=== PATIENT | male | born 1960 | race Caucasian/White ===

== ENCOUNTER 2020-08-19 08:27 | Outpatient (REF) | payer OTHER, SELFPAY ==
[2020-08-24 20:32] LABS: Acetylcholine Recep Modulating 13
[2020-08-25 01:56] LABS: Acetylcholine Receptor Binding <0.30 nmol/L
[2020-08-25 20:37] LABS: Acetylcholine Recept. Blocking <15 (<15)
== END 2020-08-19 08:28 | disposition home or self-care (01) ==
LOC: HO.LAB 08:27
PROVIDERS: PCP Internal Medicine; Visit Provider Psychiatry & Neurology Neurology
DX: G70.00 Myasthenia gravis without (acute) exacerbation (principal)
CPT/HCPCS: 36415; 83519

== ENCOUNTER 2020-09-15 15:06 | Outpatient (REF) | payer OTHER, SELFPAY ==
--- NOTE | 2020-09-15 15:11 | XR_ITS ---
EXAMINATION: XR CHEST CLINICAL INFORMATION: Non-small cell lung cancer COMPARISON: Previous chest x-rays most recent March [address] April 2020 TECHNIQUE: 2 views of the chest were obtained. FINDINGS: There are stable postsurgical changes from right pneumonectomy. The left lung is clear. There is no left pleural effusion. There is a loop recorder seen in the left anterior chest wall. Bony structures are unremarkable. XR/XR chest 2V IMPRESSION: Stable postsurgical changes from right pneumonectomy.
== END 2020-09-15 15:07 | disposition home or self-care (01) ==
LOC: HO.XRAY 15:06
PROVIDERS: PCP Internal Medicine; Visit Provider Internal Medicine Medical Oncology
DX: C34.91 Malignant neoplasm of unspecified part of right bronchus or lung (principal)
CPT/HCPCS: 71046

== ENCOUNTER 2020-12-10 14:29 | Emergency (ER) | payer OTHER, SELFPAY ==
--- NOTE | ~2020-12-10 | XR_ITS ---
EXAMINATION: XR FINGER, LEFT CLINICAL INFORMATION: Trauma to middle finger with saw COMPARISON: Previous x-ray May 2007 of the left hand TECHNIQUE: Three views of the left third finger. FINDINGS: There is a comminuted displaced fracture of the distal tuft of the third finger. There is evidence of trauma to the overlying soft tissues suggestive of a compound fracture. No radiopaque soft tissue foreign body is seen. XR/XR finger LT min 2V IMPRESSION: Comminuted compound fracture of the distal tuft of the third finger.
--- NOTE | 2020-12-10 14:35 | ED_ITS ---
HPI - Wound/Laceration General Chief Complaint: Wound/Laceration Stated Complaint: finger lacerations - table saw Time Seen by Provider: 12/10/20 14:34 Source: patient Mode of arrival: ambulatory Limitations: no limitations History of Present Illness HPI narrative: 60 y/o male presenting to the ED with lacerations to his left middle and index fingers sustained while working with a table saw today. He reports accidentally slipping with the saw and getting the tip of both fingers. The middle finger wound is worse than the index finger. He states the middle finger is still oozing. He is not on blood thinners. He reports pain is 2/10 and he denies numbness, tingling. He has full ROM of all fingers. Onset (ago): hour(s) (2) Extremity Location: left: hand (3rd and 4th digits ) Place: home Patient tetanus UTD: No Context: accidental Associated symptoms: pain Treatments prior to arrival: bandage Related Data Previous Rx's Medication Instructions Recorded cephalexin 500 mg PO Q6H 7 Days #28 cap 12/10/20 Allergies Allergy/AdvReac Type Severity Reaction Status Date / Time hazelnut Allergy Anaphylaxis Verified 12/10/20 14:37 Review of Systems Review of Systems: Constitutional: No Fever, No Chills Gastrointestinal: No Nausea, No Vomiting Musculoskeletal: + joint pain, No Myalgias Skin: + Skin Lesions, No rash Neuro: No Weakness, No Numbness Psych: No Anxiety/Panic, No Depression Heme/Lymph: No Bruising PMFSH Past Medical History Attestation statement: The following information was validated with the patient. Medical History Graves disease Heart disease Lung cancer Ocular myasthenia Surgical History (Updated 12/10/20 @ 14:43 by Ciarra Villeda) History of lung surgery Social History Social History Smoked in Last 30 Days: No Use of substances other than those prescribed or required for medical reasons: Yes Substance Use Type: Marijuana Substance Use Frequency: Occasionally Advance Directives: No Advance Directives Information Provided: Yes Physical Exam Vital Signs: Vital Signs: Last Vital Signs Temp 97.8 F 12/10/20 14:37 Pulse 94 12/10/20 14:37 Resp 16 12/10/20 14:37 BP 140/81 H 12/10/20 14:37 Pulse Ox 97 03/05/21 14:37 Body Mass Index 20.5 Appearance: Alert. Oriented X3. No acute distress. HEENT: normal inspection CVS: Normal heart rate and rhythm. Pulses normal. Respiratory: No respiratory distress. Skin: Skin warm and dry. Normal skin color. Normal skin turgor. No rashes. Extremities: left 3rd digit with deep irregular laceration to distal finger tip including nail. full flexion and extension intact. NV intact. 2nt digit with superficial laceration to distal tip without nail involvement. Neuro: Oriented X 3. No motor deficit. No sensory deficit. Course Course Course Narrative: 60 y/o male presenting with finger trauma to 3rd and 4th digit s on the left hand after accidental injury with table saw. Tdap ordered. XR ordered to assess for fracture. Will irrigate extensively and loosely repair. He has tendon function fully intact. Reevaluation(s) Reevaluation #1: XR showing comminuted compound fx of the distal tuft of the 3rd finger. Placed in splint. Will refer to Hand specialist. Patient has been counseled and he is stable for d/c with ppx keflex to prevent infection. See lac note for details of repair. Procedures Laceration Laceration 1: Site: hand Side (If applicable): left Size (cm): 3 Description: flap, irregular and contaminated Depth: involves muscle layer Local Anesthetic: lidocaine 2% Amount of anesthesia used (mL): 7 Pre-repair: wound explored, irrigated extensively and deep structures intact Skin layer closed with: nylon Size (cm): 4-0 Number of sutures: 6 Technique: simple, interrupted Laceration 2: Site: hand Side (If applicable): left Size (cm): 0.5 Description: linear Depth: simple, single layer Pre-repair: wound explored and irrigated extensively Size (cm): other (steri strips) Nerve Block Nerve Block 1: Time out performed: Yes Local Anesthetic: lidocaine 2% Amount of anesthesia used (mL): 7 Side: left Nerve Blocks: digital Procedure Successful: Yes Patient Tolerated Procedure: well Complications: none Discharge Plan Discharge Clinical Impression: Laceration Fracture, finger, distal phalanx Qualifiers: Encounter type: initial encounter Finger: middle finger Fracture type: open Fracture alignment: nondisplaced Laterality: left Qualified Code(s): S62.663B - Nondisplaced fracture of distal phalanx of left middle finger, initial encounter for open fracture Patient Disposition: Home, Self-Care Instructions: Finger Fracture (ED), Finger Laceration (ED) Additional Instructions: X-ray showed a fracture of the finger tip. Wear the splint to allow fracture to heal. Limit use of the left hand/middle finger to allow healing. Do not get wounds wet for 24 hours. After 24 hours you may wash briefly with soap and water and then pat dry. Apply bacitracin or triple antibiotic ointment two times per day. Recommend Tylenol and Motrin as needed for pain. Elevate when possible and use ice to help with swelling. Follow up with your doctor or come back to the ER in 24 days for suture removal. Take the prescribed antibiotic to prevent infection. Follow up with the Hand Surgeon next week. Prescriptions: New cephalexin 500 mg capsule 500 mg PO Q6H 7 Days Qty: 28 RF: 0 Referrals: Andree Priest MD [Physician] - 3 days (complex lac, comminuted fx)
[2020-12-10 14:37] VITALS: BP 140/81; PULSE 94; RESP 16; TEMP 36.6; O2SAT 97; BMI 20.5
[2020-12-10] MEDS: Lidocaine HCl 2 % MPF 5 ML VIAL INFILTRATI ×2 (14:52)
== END 2020-12-10 16:01 | disposition home or self-care (01) ==
LOC: HO.ED 14:51
PROVIDERS: Emergency Provider Emergency Medicine; PCP Internal Medicine
DX: S62.663B Nondisplaced fracture of distal phalanx of left middle finger, initial encounter for open fracture (principal); W31.2XXA Contact with powered woodworking and forming machines, initial encounter; Y93.9 Activity, unspecified; Y92.019 Unspecified place in single-family (private) house as the place of occurrence of the external cause; Y99.9 Unspecified external cause status
CPT/HCPCS: 12042; 64450; 73140; 90471; 90715; 99283; 99284

== ENCOUNTER → 2020-12-22 09:21 | Outpatient (BNVA) | payer OTHER, SELFPAY | PROVIDERS: PCP Internal Medicine; Visit Provider Orthopaedic Surgery | DX: S69.92XA Unspecified injury of left wrist, hand and finger(s), initial encounter (principal); S62.633B Displaced fracture of distal phalanx of left middle finger, initial encounter for open fracture | CPT/HCPCS: 99202 ==

== ENCOUNTER → 2020-12-30 10:22 | Outpatient (BNVA) | payer OTHER, SELFPAY | PROVIDERS: PCP Internal Medicine; Visit Provider Physician Assistant | DX: S62.633D Displaced fracture of distal phalanx of left middle finger, subsequent encounter for fracture with routine healing (principal); S69.92XD Unspecified injury of left wrist, hand and finger(s), subsequent encounter | CPT/HCPCS: 99212 ==

== ENCOUNTER → 2021-01-06 09:16 | Outpatient (BNVA) | payer OTHER, SELFPAY | PROVIDERS: PCP Internal Medicine; Visit Provider Physician Assistant | DX: S69.92XD Unspecified injury of left wrist, hand and finger(s), subsequent encounter (principal) | CPT/HCPCS: 99212 ==

== ENCOUNTER → 2021-01-10 10:48 | Outpatient (BNVA) | payer OTHER, SELFPAY | PROVIDERS: PCP Internal Medicine; Visit Provider Orthopaedic Surgery | DX: S62.633D Displaced fracture of distal phalanx of left middle finger, subsequent encounter for fracture with routine healing (principal) | CPT/HCPCS: 99212 ==

== ENCOUNTER 2021-02-07 08:51 | Outpatient (REF) | payer OTHER, SELFPAY | END 2021-02-07 08:52 | disposition home or self-care (01) | LOC: HO.HOSX 08:51 | PROVIDERS: PCP Internal Medicine; Visit Provider Orthopaedic Surgery | DX: S69.92XA Unspecified injury of left wrist, hand and finger(s), initial encounter (principal); S62.633B Displaced fracture of distal phalanx of left middle finger, initial encounter for open fracture | CPT/HCPCS: 99212 ==

== ENCOUNTER 2021-03-03 07:26 | Outpatient (REF) | payer OTHER, SELFPAY ==
[2021-03-03 08:49] LABS: Anion Gap 12 (12-20); Blood Urea Nitrogen 14 mg/dL (9-16); Carbon Dioxide 28 mmol/L (22-29); Chloride 103 mmol/L (96-108); Estimated Glomerular Filt Rate > 60; Glucose Fasting 92 mg/dL (60-99); Sodium 139 mmol/L (135-145)
== END 2021-03-03 07:27 | disposition home or self-care (01) ==
LOC: HO.LAB 07:26
PROVIDERS: PCP Internal Medicine; Visit Provider Psychiatry & Neurology Neurology
DX: G70.00 Myasthenia gravis without (acute) exacerbation (principal)
CPT/HCPCS: 36415; 80048

== ENCOUNTER 2021-05-04 07:19 | Outpatient (REF) | payer OTHER, SELFPAY ==
--- NOTE | ~2021-05-04 | CT_ITS ---
EXAMINATION: CT CHEST WITHOUT CONTRAST CLINICAL INFORMATION: Malignant neoplasm of the right main bronchus. COMPARISON: 04/21/2020 and 02/05/2019 TECHNIQUE: Multidetector volumetric CT imaging of the chest was done. Axial MIP volume rendering provided. Sagittal and coronal reformatted images were obtained. This CT examination was performed using dose optimization techniques as appropriate, variously including the following: *Automated exposure control *Adjustment of mA and/or kV according to patient size (this includes techniques or standardized protocols for targeted exams where dose is matched to indication/reason for exam; i.e. extremities or head) *Use of iterative reconstruction technique DLP: 134.9 mGy-cm FINDINGS: LUNGS: Patient is status post right pneumonectomy with mediastinal shift to the right. There are mild changes of centrilobular and paraseptal emphysema present. No confluent parenchymal disease is noted. No bronchial wall thickening or bronchiectasis is seen. Within the left lower lobe there is a noncalcified somewhat irregularly marginated 8 mm density on image 301 of 779 which appears similar in size but denser than on prior examinations. There appears to be an adjacent bronchus with some surrounding haziness measuring 7 x 4 mm in size which I do not definitely see on prior studies. This is seen on image 280 of 779. MEDIASTINUM: No definite thyroid abnormalities appreciated. Heart normal size. Mild coronary artery calcification present. Mild calcification of the aortic valve is seen. No pericardial effusion. No definite lymphadenopathy is seen. No thoracic aortic aneurysm. PLEURA: Status post right pneumonectomy with fluid in the post pneumonectomy space. Within the fluid there is again noted to be regions of soft tissue density which may represent invagination of pleura and had been seen on previous studies. AXILLA: No lymphadenopathy appreciated. Left anterior chest wall cardiac recorder noted. UPPER ABDOMEN: Hepatic cysts are present. No definite focal solid mass or intrahepatic bile duct dilatation is noted. OSSEOUS STRUCTURES: No suspicious destructive bony lesions identified. CT/CT chest wo con IMPRESSION: 1. Status post right pneumonectomy with postsurgical change. 2. Right lower lobe regions of density, one of which appears to be stable and one of which I cannot definitely see on prior studies. This measures approximately 7 x 4 mm in size. Recommend short-term follow-up chest CT.
== END 2021-05-04 07:20 | disposition home or self-care (01) ==
LOC: HO.CT 07:19
PROVIDERS: PCP Internal Medicine; Visit Provider Surgery
DX: C34.01 Malignant neoplasm of right main bronchus (principal)
CPT/HCPCS: 71250

== ENCOUNTER → 2021-05-20 08:54 | Outpatient (BNVA) | payer OTHER, SELFPAY | PROVIDERS: PCP Internal Medicine; Visit Provider Surgery | DX: C34.91 Malignant neoplasm of unspecified part of right bronchus or lung (principal); F12.90 Cannabis use, unspecified, uncomplicated; Z79.899 Other long term (current) drug therapy | CPT/HCPCS: 99212 ==

== ENCOUNTER 2021-08-15 08:09 | Outpatient (REF) | payer OTHER, SELFPAY ==
--- NOTE | ~2021-08-15 | CT_ITS ---
EXAMINATION: CT CHEST WITHOUT CONTRAST CLINICAL INFORMATION: History of right lung cancer. COMPARISON: Previous chest CT scans, most recent April 2021. TECHNIQUE: Multidetector volumetric CT imaging of the chest was done. Axial MIP volume rendering provided. Sagittal and coronal reformatted images were obtained. This CT examination was performed using dose optimization techniques as appropriate, variously including the following: *Automated exposure control *Adjustment of mA and/or kV according to patient size (this includes techniques or standardized protocols for targeted exams where dose is matched to indication/reason for exam; i.e. extremities or head) *Use of iterative reconstruction technique DLP: 160 mGy-cm. FINDINGS: LUNGS: There are postsurgical changes from right pneumonectomy. There is evidence of emphysema. There is focal mild bronchiectasis and bronchial wall thickening seen in the superior segment of the left lower lobe. Just inferior to this area is an increasing slightly spiculated 8 mm left lower lobe nodule, axial image 302 series 7. This is gradually increasing in size and density measuring approximately 3 x 4 mm on most recent exam April 2021 and new from older exam from 2019. MEDIASTINUM: There is mild coronary artery calcification. The mediastinum is otherwise normal. PLEURA: There is stable appearance to the right pleural effusion. Again, this appears thick-walled with high attenuation areas and some calcification. This is unchanged from recent exam but complexity is gradually increasing compared to older prior exams. There is some infiltration of the extrapleural fat. This appears stable as well. There is no left pleural effusion or pleural thickening. AXILLA: No lymphadenopathy. UPPER ABDOMEN: There are small low-attenuation liver lesions probably representing cysts that are stable. The largest measures 1.3 x 1.7 cm in the central right lobe. There may be diverticulosis of the colon. OSSEOUS STRUCTURES: Unremarkable. CT/CT chest wo con IMPRESSION: Increasing spiculated 8 mm left upper lobe nodule. This is adjacent to an area of focal bronchiectasis and bronchial wall thickening. Appearance is suspicious for possible neoplasm. Stable appearance to the complex chronic right pleural effusion post right pneumonectomy. There are round high attenuation areas, some calcification and infiltration of the extrapleural fat. Stable liver cysts.
== END 2021-08-15 08:10 | disposition home or self-care (01) ==
LOC: HO.CT 08:09
PROVIDERS: PCP Internal Medicine; Visit Provider Surgery
DX: C34.91 Malignant neoplasm of unspecified part of right bronchus or lung (principal)
CPT/HCPCS: 71250

== ENCOUNTER 2021-08-19 08:50 | Outpatient (REF) | payer OTHER, SELFPAY ==
[2021-08-27 01:42] LABS: Voltage-Gated Ca Ab Type P/Q <30 pmol/L (<30)
[2021-09-09 17:35] LABS: Voltage-Gated Ca Chan Ab TypeN <54 pmol/L (<54)
== END 2021-08-19 08:51 | disposition home or self-care (01) ==
LOC: HO.LAB 08:50
PROVIDERS: Absent Provider Psychiatry & Neurology Neurology; PCP Internal Medicine; Visit Provider Surgery
DX: G70.00 Myasthenia gravis without (acute) exacerbation (principal); C34.91 Malignant neoplasm of unspecified part of right bronchus or lung; R91.1 Solitary pulmonary nodule
CPT/HCPCS: 36415; 83519

== ENCOUNTER 2021-08-26 08:51 | Outpatient (REF) | payer OTHER, SELFPAY ==
--- NOTE | 2021-08-26 16:51 | PFT_ITS ---
FLOWS: FEV1 44% of predicted at 1.73 L. FVC 69% of predicted at 3.56 L. FEV1 to FVC ratio of 0.49. No bronchodilator response except in small to medium airways. LUNG VOLUMES: Total lung capacity 77% of predicted at 5.72 L. Residual volume 100% of predicted at 2.36 L. Slow vital capacity 66% of predicted at 3.36 L. Expiratory reserve volume 105% of predicted at 1.62 L. Diffusion capacity is moderately decreased. IMPRESSION: Severe obstructive ventilatory defect combined with mild restrictive ventilatory defect with no bronchodilator response except in small to medium airways. Decreased diffusion capacity suggests emphysema. MD ELIZABET Choi/MODL / [id number]
== END 2021-08-26 08:52 | disposition home or self-care (01) ==
LOC: HO.RESP 08:51
PROVIDERS: PCP Internal Medicine; Visit Provider Surgery
DX: C34.91 Malignant neoplasm of unspecified part of right bronchus or lung (principal); R91.1 Solitary pulmonary nodule
CPT/HCPCS: 94060; 94727; 94729

== ENCOUNTER 2021-08-30 14:43 | Outpatient (REF) | payer OTHER, SELFPAY ==
--- NOTE | ~2021-08-30 | PE_ITS ---
EXAMINATION: Fluorine-18 FDG PET/CT Scan CLINICAL INDICATION: Initial treatment management. Pulmonary nodule. PROCEDURE: 58 minutes following the intravenous administration of 13.6 mCi of fluorine 18 FDG, images from the base of the skull to the mid thighs were obtained using a combined PET/CT scanner with CT scan based attenuation correction. No oral contrast was administered. No intravenous contrast was administered. Transverse, coronal, sagittal, and volume reconstruction projections were obtained. The patient's blood glucose as determined by a finger stick, was 103 mg/dl immediately prior to injection. Total CT exam dose-length product 265.71 mGy-cm * These CT images were obtained using dose optimization techniques as appropriate, variously including the following: Automated exposure control * Adjustment of mA and/or kV according to patient size (this includes techniques or standardized protocols for targeted exams where dose is matched to indication/reason for exam; i.e. extremities or head) * Use of iterative reconstruction technique COMPARISON: No previous PET/CT scan is available for comparison. CT scan of the chest dated 08/15/2021 is available for comparison. FINDINGS: (Slice numbers described in this report are numbered superiorly to inferiorly with slice #1 in the head) NECK AND VISUALIZED HEAD: There is an intense focus of increased FDG activity present in the right side of the mandible, and SUVmax 10.7, slice 36/267. On the CT images there are subtle lucencies in this region of the mandible. No other foci of abnormal FDG activity are noted. The distribution of FDG activity is physiological. There is no cervical lymphadenopathy. THORAX: Postsurgical changes from a right pneumonectomy are noted. In the superior segment of the left lower lobe there is a weakly FDG avid pulmonary nodule, SUVmax 1.9, slice 94/267. On the CT images this measures 0.7 x 0.6 cm in largest transverse dimensions, and approximately 0.7 cm cephalocaudad. It does not appear significantly changed from the recent 08/15/[address] scan. No additional pulmonary nodules are visualized. There is a stable right pleural effusion with weakly increased FDG activity present in the pleura without a focal component. No left-sided pleural fluid is present. There is no pericardial fluid or pneumothorax. There is no mediastinal, supraclavicular or axillary lymphadenopathy. ABDOMEN AND PELVIS: There are no foci of abnormal FDG activity present in the abdomen or pelvis. There are several stable appearing hypodense cysts in the right lobe of the liver the largest measuring 1.8 x 1.3 cm in largest transverse dimensions versus photopenic on the FDG PET images, consistent with a simple cyst. Several other small subcentimeter cysts are present in both lobes of the liver, unchanged from 08/15/2021 and these are all likely too small to be characterized on the FDG PET images. The liver is otherwise unremarkable. The gallbladder, spleen, kidneys, and adrenal glands are unremarkable. The pancreas is unremarkable. There is no retroperitoneal, mesenteric, pelvic or inguinal lymphadenopathy. There is mild FDG activity present throughout the gastrointestinal tract without a suspicious focal component. There is diverticulosis without evidence of diverticulitis. The hollow viscera are otherwise unremarkable. The prostate is enlarged measuring 5.3 cm in largest transverse dimensions. The pelvic organs are otherwise unremarkable. MUSCULOSKELETAL: There are no foci of abnormal FDG activity present in the osseous structures. There are degenerative changes in the spine most prominently in the mid lumbar spine. No suspicious sclerotic or lytic lesions are present. VASCULAR: Scattered vascular calcifications including coronary are present. PET/PET CT fusion skull to thigh IMPRESSION: 1. There is weak FDG activity in a subcentimeter left lower lobe pulmonary nodule, as described above. Because of the small size of this nodule, this intensity of FDG activity as well as the spiculated appearance on the CT images are strongly suspicious for malignancy. 2. No additional abnormalities suspicious for metastatic or other malignant lesions are noted. 3. Intense FDG activity and some subtle lucencies in the right molar aspect of the mandible are present, and the findings are strongly suspicious for a dental abscess at this site. Dental evaluation is recommended. 4. Postsurgical changes from a right pneumonectomy and a stable right pleural effusion are noted. 5. Vascular calcifications including coronary.
== END 2021-08-30 14:44 | disposition home or self-care (01) ==
LOC: HO.PET 14:43
PROVIDERS: PCP Internal Medicine; Visit Provider Surgery
DX: Z13.89 Encounter for screening for other disorder (principal)

== ENCOUNTER → 2021-09-09 08:54 | Outpatient (BNVA) | payer OTHER, SELFPAY | PROVIDERS: PCP Internal Medicine; Visit Provider Surgery | DX: R91.1 Solitary pulmonary nodule (principal); K04.7 Periapical abscess without sinus; F12.90 Cannabis use, unspecified, uncomplicated; Z79.899 Other long term (current) drug therapy; Z85.118 Personal history of other malignant neoplasm of bronchus and lung; Z90.2 Acquired absence of lung [part of] | CPT/HCPCS: 99212 ==

== ENCOUNTER 2021-09-15 09:59 | Outpatient (REF) | payer OTHER, SELFPAY ==
[2021-09-15 11:21] LABS: Influenza A PCR NEGATIVE (Negative); Influenza B PCR NEGATIVE (Negative); Resp Syncy Virus RNA Qual PCR NEGATIVE (Negative); SARS COV2 PCR INHOUSE NEGATIVE (Negative)
== END 2021-09-15 10:00 | disposition home or self-care (01) ==
LOC: HO.LNP 09:59
PROVIDERS: Visit Provider Internal Medicine
DX: Z20.822 Contact with and (suspected) exposure to COVID-19 (principal)
CPT/HCPCS: 0241U

== ENCOUNTER 2021-09-21 14:43 | Outpatient (REF) | payer OTHER, SELFPAY ==
--- NOTE | ~2021-09-21 | XR_ITS ---
EXAMINATION: XR CHEST CLINICAL INFORMATION: Non-small cell lung cancer of the right lung. COPD. COMPARISON: Previous chest x-ray most recent September [address] most recent August 2021 TECHNIQUE: 2 views of the chest were obtained. FINDINGS: The cardiac and mediastinal contours are stable. There are postsurgical changes following right pneumonectomy. The left lung is clear. The small pulmonary nodule in the left lower lobe is not appreciated by chest x-ray. There is no pleural effusion or pneumothorax. There is a loop recorder in the left anterior chest. Bony structures are unremarkable. XR/XR chest 2V IMPRESSION: Stable post right pneumonectomy changes. No evidence for acute disease in the chest.
[2021-09-21 14:56] LABS: MANUAL DIFF FLAG NO
[2021-09-21 15:49] LABS: Basophils Percent Auto 0.4 % (0-2); Eosinophils Percent Auto 0.2 % (0-4); Hematocrit 45.8 % (42.0-52.0); Hemoglobin 15.1 g/dl (14.0-18.0); Imm Gran Abs Auto 0.03 X10*3/uL (0.00-0.03); Imm Gran Pct Auto 0.3 % (0.0-0.4); Lymphocytes Absolute Auto 1.3 X10*3/uL (1.2-4.9); Lymphocytes Percent Auto 12.6 % (20-40); Mean Platelet Volume 9.3 fL (9.4-12.4); Monocytes Absolute Auto 0.5 X10*3/uL (0.1-1.2); Monocytes Percent Auto 5.3 % (2-11); Neutrophils Absolute Auto 8.3 x10*3/uL (2.0-8.3); Neutrophils Percent Auto 81.2 % (45-73); Platelet Count 307 X10*3/uL (160-400); Red Blood Count 4.72 X10*6/uL (4.60-5.80); Red Cell Distribution Width 13.4 % (11.0-16.0); White Blood Count 10.2 X10*3/uL (4.8-10.8)
[2021-09-21 16:05] LABS: Alanine Aminotransferase 15 U/L (0-40); Albumin Level 4.4 g/dL (3.5-5.0); Alkaline Phosphatase 66 U/L (39-117); Anion Gap 12 (12-20); Aspartate Amino Transferase 21 U/L (5-37); Bilirubin Total 0.8 mg/dL (0.0-1.0); Blood Urea Nitrogen 12 mg/dL (9-16); Calcium 9.8 mg/dL (8.4-10.2); Carbon Dioxide 29 mmol/L (22-29); Chloride 102 mmol/L (96-108); Estimated Glomerular Filt Rate > 60; Glucose Random 107 mg/dL (60-115); Potassium 4.3 mmol/L (3.3-5.1); Sodium 139 mmol/L (135-145); Total Protein 7.1 g/dL (6.5-8.0)
[2021-09-21 16:28] LABS: Free T4 (Free Thyroxine) 1.15 ng/dL (0.71-1.85); Prostate Specific Antigen 3.63 ng/mL (<0.05-4.0); Thyroid Stimulating Hormone 2.95 uIU/mL (0.32-4.0)
== END 2021-09-21 14:44 | disposition home or self-care (01) ==
LOC: HO.XRAY 14:43
PROVIDERS: Absent Provider Internal Medicine; PCP Internal Medicine; Visit Provider Internal Medicine Medical Oncology
DX: E03.9 Hypothyroidism, unspecified (principal); N40.0 Benign prostatic hyperplasia without lower urinary tract symptoms; R05.9 Cough, unspecified; G70.00 Myasthenia gravis without (acute) exacerbation; C34.91 Malignant neoplasm of unspecified part of right bronchus or lung; J44.9 Chronic obstructive pulmonary disease, unspecified
CPT/HCPCS: 36415; 71046; 80053; 84153; 84439; 84443; 85025

== ENCOUNTER 2021-09-23 07:15 | Day surgery (SDC) | payer OTHER, SELFPAY ==
[2021-09-23] VITALS (8 sets, daily range): BP systolic 79–104; BP diastolic 43–65; PULSE 67–82; RESP 16–18; TEMP 36.1–36.6; O2SAT 96–99; BMI 19.8
--- NOTE | ~2021-09-23 | CT_ITS ---
PROCEDURE: CT GUIDED BIOPSY, LUNG CLINICAL INFORMATION: Left lung nodule. COMPARISON: Previous chest CT scans, most recent August 2021 TECHNIQUE: Procedure and risks and benefits including bleeding, infection and pneumothorax were discussed with the patient, and informed consent was obtained. The patient was positioned in the left decubitus/slight HAITIAN position. Limited axial images through the chest were performed. The left posterior lateral chest was prepped and draped in the usual sterile fashion. The skin and soft tissues were anesthetized with 1% lidocaine plain. Using a 22-gauge needle, access to the left lower lobe nodule was obtained. Two separate 22-gauge FNA specimens were obtained. Postprocedure imaging demonstrated no pneumothorax. Conscious sedation was provided by registered nurse under my direct supervision. The patient received Versed 1.5 mg and fentanyl 75 mcg intravenously during the procedure. Total sedation time was [address] examination was performed using dose optimization techniques as appropriate, variously including the following: *Automated exposure control *Adjustment of mA and/or kV according to patient size (this includes techniques or standardized protocols for targeted exams where dose is matched to indication/reason for exam; i.e. extremities or head) *Use of iterative reconstruction technique DLP: 1168 mGy-cm FINDINGS: There is an 8 mm left lower lobe nodule that was targeted for fine-needle aspiration. Postprocedure images demonstrate no pneumothorax. CT/CT biopsy lung LT IMPRESSION: CT-guided left lower lobe nodule fine-needle aspiration.
--- NOTE | ~2021-09-23 | XR_ITS ---
EXAMINATION: XR CHEST CLINICAL INFORMATION: Post left lung biopsy COMPARISON: Previous chest x-ray most recent 09/21/2021 TECHNIQUE: Frontal view of the chest was obtained. FINDINGS: The cardiac and mediastinal are stable. There are are postsurgical changes from right pneumonectomy. The left lung is clear. The left lower lobe pulmonary nodule is not well-visualized by chest x-ray. There is no pneumothorax. There is no left pleural effusion. There is a loop recorder that projects over the left chest wall. Bony structures are unremarkable. XR/XR chest 1V IMPRESSION: No pneumothorax post left lung biopsy.
[2021-09-23 08:06] LABS: Basophils Absolute Auto 0.1 X10*3/uL (0.0-0.2); Basophils Percent Auto 0.5 % (0-2); Eosinophils Absolute Auto 0.1 X10*3/uL (0.0-0.4); Eosinophils Percent Auto 0.7 % (0-4); Hematocrit 42.4 % (42.0-52.0); Hemoglobin 14.2 g/dl (14.0-18.0); Imm Gran Abs Auto 0.08 X10*3/uL (0.00-0.03); Imm Gran Pct Auto 0.7 % (0.0-0.4); Lymphocytes Absolute Auto 0.8 X10*3/uL (1.2-4.9); Lymphocytes Percent Auto 7.2 % (20-40); MANUAL DIFF FLAG NO; Mean Corpuscular HGB Conc 33.5 g/dl (31.0-36.0); Mean Corpuscular Volume 95.5 fL (80.0-98.0); Mean Platelet Volume 8.8 fL (9.4-12.4); Monocytes Absolute Auto 0.6 X10*3/uL (0.1-1.2); Monocytes Percent Auto 5.3 % (2-11); Neutrophils Absolute Auto 9.8 x10*3/uL (2.0-8.3); Neutrophils Percent Auto 85.6 % (45-73); Platelet Count 234 X10*3/uL (160-400); Red Blood Count 4.44 X10*6/uL (4.60-5.80); Red Cell Distribution Width 13.4 % (11.0-16.0); White Blood Count 11.4 X10*3/uL (4.8-10.8)
[2021-09-23 08:16] LABS: Prothrombin Time 11.6 SEC (9.9-13.0)
--- NOTE | 2021-09-23 11:10 | HO.RADPN ---
RADIOLOGY Narrative Narrative: Left lower lobe fna. Two 22 g fna specimens obtained. No complication.
== END 2021-09-23 13:21 | disposition home or self-care (01) ==
PROVIDERS: Radiology Diagnostic Radiology; PCP Internal Medicine; Visit Provider Radiology Diagnostic Radiology
DX: R91.1 Solitary pulmonary nodule (principal)
CPT/HCPCS: 10009; 10010; 32408; 36415; 71045; 85025; 85610; 85730; 88173; 88305; 88341; 88342; 99152; 99153; J2250; J3010

== ENCOUNTER 2021-12-30 07:55 | Outpatient (REF) | payer OTHER, SELFPAY ==
--- NOTE | ~2021-12-30 | XR_ITS ---
EXAMINATION: XR CHEST CLINICAL INFORMATION: Non-small cell lung cancer COMPARISON: Previous chest x-rays most recent September 2021 TECHNIQUE: 2 views of the chest were obtained. FINDINGS: There are stable postsurgical changes following right pneumonectomy. The cardiac and mediastinal contours are stable. The left lung is well inflated. The left lung is clear. There is no left pleural effusion. There is a loop recorder in the left anterior chest wall. Bony structures are unremarkable. XR/XR chest 2V IMPRESSION: Stable post right pneumonectomy changes.
== END 2021-12-30 07:56 | disposition home or self-care (01) ==
LOC: HO.XRAY 07:55
PROVIDERS: PCP Internal Medicine; Visit Provider Internal Medicine Medical Oncology
DX: C34.91 Malignant neoplasm of unspecified part of right bronchus or lung (principal)
CPT/HCPCS: 71046

== ENCOUNTER 2022-08-01 17:29 | Outpatient (REF) | payer OTHER, SELFPAY ==
--- NOTE | ~2022-08-01 | XR_ITS ---
EXAMINATION: XR CHEST CLINICAL INFORMATION: Cough. Shortness of breath. Rule out infiltrate. COMPARISON: Previous chest x-ray most recent December 2021 TECHNIQUE: 2 views of the chest were obtained. FINDINGS: There are postsurgical changes from right pneumonectomy. The cardiac and mediastinal contours are stable. The left lung is clear. There is no left pleural effusion or pneumothorax. Bony structures are unremarkable. Left chest wall loop recorder no longer seen. XR/XR chest 2V IMPRESSION: Post right pneumonectomy. No evidence for acute disease in the chest.
== END 2022-08-01 17:30 | disposition home or self-care (01) ==
LOC: HO.XRAY 17:29
PROVIDERS: PCP Internal Medicine; Visit Provider Internal Medicine
DX: R06.02 Shortness of breath (principal); R05.9 Cough, unspecified
CPT/HCPCS: 71046

== ENCOUNTER 2022-08-02 09:16 | Outpatient (REF) | payer OTHER, SELFPAY ==
[2022-08-02 10:07] LABS: Basophils Absolute Auto 0.1 X10*3/uL (0.0-0.2); Basophils Percent Auto 0.4 % (0-2); Eosinophils Percent Auto 0.2 % (0-4); Hematocrit 45.1 % (42.0-52.0); Hemoglobin 14.9 g/dl (14.0-18.0); Imm Gran Abs Auto 0.07 X10*3/uL (0.00-0.03); Imm Gran Pct Auto 0.5 % (0.0-0.4); Lymphocytes Absolute Auto 1.2 X10*3/uL (1.2-4.9); Lymphocytes Percent Auto 8.3 % (20-40); MANUAL DIFF FLAG SCAN; Mean Corpuscular Hemoglobin 30.7 pg (27.0-33.0); Mean Platelet Volume 8.8 fL (9.4-12.4); Monocytes Absolute Auto 1.8 X10*3/uL (0.1-1.2); Monocytes Percent Auto 12.9 % (2-11); Neutrophils Absolute Auto 10.7 x10*3/uL (2.0-8.3); Neutrophils Percent Auto 77.7 % (45-73); Platelet Count 280 X10*3/uL (160-400); Red Blood Count 4.85 X10*6/uL (4.60-5.80); Red Cell Distribution Width 13.6 % (11.0-16.0); SCAN SMEAR FLAG 1; White Blood Count 13.8 X10*3/uL (4.8-10.8)
[2022-08-02 10:14] LABS: D Dimer High Sensitivity 509 NG/ML
[2022-08-02 10:29] LABS: SLIDE REVIEW VERIFIED
[2022-08-02 10:49] LABS: Alanine Aminotransferase 9 U/L (0-40); Albumin Level 4.2 g/dL (3.5-5.0); Alkaline Phosphatase 69 U/L (39-117); Anion Gap 18 (12-20); Aspartate Amino Transferase 14 U/L (5-37); Bilirubin Total 1.2 mg/dL (0.0-1.0); Blood Urea Nitrogen 14 mg/dL (9-16); Calcium 9.4 mg/dL (8.4-10.2); Carbon Dioxide 26 mmol/L (22-29); Chloride 101 mmol/L (96-108); Estimated Glomerular Filt Rate > 60; Glucose Random 115 mg/dL (60-115); Potassium 4.8 mmol/L (3.3-5.1); Sodium 140 mmol/L (135-145); Total Protein 7.2 g/dL (6.5-8.0)
== END 2022-08-02 09:17 | disposition home or self-care (01) ==
LOC: HO.LAB 09:16
PROVIDERS: PCP Internal Medicine; Visit Provider Internal Medicine
DX: R06.02 Shortness of breath (principal); R05.9 Cough, unspecified
CPT/HCPCS: 36415; 80053; 85025; 85379

== ENCOUNTER 2022-12-12 09:52 | Outpatient (REF) | payer OTHER, SELFPAY ==
[2022-12-12 12:32] LABS: Free T4 (Free Thyroxine) 1.17 ng/dL (0.71-1.85); Thyroid Stimulating Hormone 2.01 uIU/mL (0.32-4.0)
[2022-12-13 20:14] LABS: Triiodothyronine T3 Free 3.2 pg/mL (2.3-4.2)
== END 2022-12-12 09:53 | disposition home or self-care (01) ==
LOC: HO.HMGCLDS 09:52
PROVIDERS: PCP Internal Medicine; Visit Provider Internal Medicine Endocrinology, Diabetes & Metabolism
DX: E05.90 Thyrotoxicosis, unspecified without thyrotoxic crisis or storm (principal)
CPT/HCPCS: 36415; 84439; 84443; 84481

== ENCOUNTER 2023-04-30 10:39 | Outpatient (REF) | payer OTHER, SELFPAY ==
--- NOTE | ~2023-04-30 | XR_ITS ---
EXAMINATION: XR CHEST CLINICAL INFORMATION: Non-small cell cancer of right lung COMPARISON: None available. TECHNIQUE: 2 views of the chest were obtained. FINDINGS: There are postsurgical changes from right pneumonectomy. There is shift of mediastinum to the right midline. This obscures the right heart borders. The left lung is clear. There is no left pleural effusion or pneumothorax. No acute osseous abnormality. XR/XR chest 2V IMPRESSION: No significant interval change. Post right pneumonectomy. No evidence of acute disease in the left chest.
== END 2023-04-30 10:40 | disposition home or self-care (01) ==
LOC: HO.HMGCX 10:39
PROVIDERS: PCP Internal Medicine; Visit Provider Internal Medicine Medical Oncology
DX: C34.91 Malignant neoplasm of unspecified part of right bronchus or lung (principal)
CPT/HCPCS: 71046

== ENCOUNTER 2023-06-26 08:52 | Outpatient (REF) | payer OTHER, SELFPAY ==
[2023-06-26 11:35] LABS: MANUAL DIFF FLAG NO
[2023-06-26 11:44] LABS: Basophils Absolute Auto 0.1 X10*3/uL (0.0-0.2); Basophils Percent Auto 0.9 % (0-2); Eosinophils Absolute Auto 0.1 X10*3/uL (0.0-0.4); Eosinophils Percent Auto 1.1 % (0-4); Hemoglobin 15.5 g/dl (14.0-18.0); Imm Gran Abs Auto 0.03 X10*3/uL (0.00-0.03); Imm Gran Pct Auto 0.3 % (0.0-0.4); Lymphocytes Absolute Auto 1.2 X10*3/uL (1.2-4.9); Lymphocytes Percent Auto 13.2 % (20-40); Mean Platelet Volume 9.2 fL (9.4-12.4); Monocytes Absolute Auto 0.8 X10*3/uL (0.1-1.2); Monocytes Percent Auto 8.5 % (2-11); Neutrophils Absolute Auto 6.8 x10*3/uL (2.0-8.3); Platelet Count 294 X10*3/uL (160-400); Red Cell Distribution Width 13.9 % (11.0-16.0); White Blood Count 8.9 X10*3/uL (4.8-10.8)
[2023-06-26 12:28] LABS: Alanine Aminotransferase 11 U/L (0-40); Aspartate Amino Transferase 14 U/L (5-37)
[2023-06-26 12:46] LABS: Free T4 (Free Thyroxine) 1.15 ng/dL (0.71-1.85)
[2023-06-27 08:09] LABS: Triiodothyronine T3 Free 3.3 pg/mL (2.3-4.2)
== END 2023-06-26 08:53 | disposition home or self-care (01) ==
LOC: HO.HMGCLDS 08:52
PROVIDERS: PCP Internal Medicine; Visit Provider Internal Medicine Endocrinology, Diabetes & Metabolism
DX: E05.90 Thyrotoxicosis, unspecified without thyrotoxic crisis or storm (principal)
CPT/HCPCS: 36415; 84439; 84443; 84450; 84460; 84481; 85025

== ENCOUNTER 2023-09-05 08:00 | Outpatient (REF) | payer MEDICAID, SELFPAY ==
--- NOTE | ~2023-09-05 | XR_ITS ---
EXAMINATION: XR CHEST CLINICAL INFORMATION: Non-small cell cancer of the right lung. COMPARISON: Prior chest radiographs, most recently 04/30/2023. TECHNIQUE: 2 frontal and lateral views of the chest were obtained. FINDINGS: There are stable postoperative changes consistent with a prior right pneumonectomy. There is stable rightward mediastinal shift. The cardiac contours largely obscured. There is compensatory hyperinflation of the left lung, without infiltrate, effusion or pneumothorax. No mass or nodule seen. There is no left hilar lymphadenopathy. No acute osseous abnormality is seen. XR/XR chest 2V IMPRESSION: There are stable postoperative changes consistent with a right pneumonectomy. No acute findings noted. No mass, nodule or left hilar lymphadenopathy is seen.
[2023-09-05 11:16] LABS: MANUAL DIFF FLAG NO
[2023-09-05 11:42] LABS: Basophils Absolute Auto 0.1 X10*3/uL (0.0-0.2); Basophils Percent Auto 0.8 % (0-2); Eosinophils Absolute Auto 0.1 X10*3/uL (0.0-0.4); Eosinophils Percent Auto 1.6 % (0-4); Hematocrit 46.2 % (42.0-52.0); Hemoglobin 15.3 g/dl (14.0-18.0); Imm Gran Abs Auto 0.02 X10*3/uL (0.00-0.03); Imm Gran Pct Auto 0.3 % (0.0-0.4); Lymphocytes Absolute Auto 1.1 X10*3/uL (1.2-4.9); Lymphocytes Percent Auto 14.7 % (20-40); Mean Corpuscular HGB Conc 33.1 g/dl (31.0-36.0); Mean Corpuscular Hemoglobin 31.9 pg (27.0-33.0); Mean Corpuscular Volume 96.5 fL (80.0-98.0); Mean Platelet Volume 9.3 fL (9.4-12.4); Monocytes Absolute Auto 0.6 X10*3/uL (0.1-1.2); Monocytes Percent Auto 8.2 % (2-11); Neutrophils Absolute Auto 5.8 x10*3/uL (2.0-8.3); Neutrophils Percent Auto 74.4 % (45-73); Platelet Count 294 X10*3/uL (160-400); Red Blood Count 4.79 X10*6/uL (4.60-5.80); Red Cell Distribution Width 13.9 % (11.0-16.0); White Blood Count 7.7 X10*3/uL (4.8-10.8)
[2023-09-05 11:47] LABS: Appearance Urine Clear; Color Urine Yellow; Glucose Urine UA Negative (Negative); Leukocyte Esterase Urine Negative (Negative); Nitrite Urine Negative (Negative); PH 6.5 (5.0-9.0); Specific Gravity - Urine 1.025 (1.005-1.025); Urine Blood Negative (Negative); Urine Ketones Negative (Negative); Urine Protein Negative (Neg-Trace)
[2023-09-05 11:59] LABS: Alanine Aminotransferase 11 U/L (0-40); Alkaline Phosphatase 65 U/L (39-117); Anion Gap 11 (12-20); Aspartate Amino Transferase 17 U/L (5-37); Bilirubin Total 0.6 mg/dL (0.0-1.0); Blood Urea Nitrogen 14 mg/dL (9-16); Calcium 9.2 mg/dL (8.4-10.2); Carbon Dioxide 28 mmol/L (22-29); Chloride 105 mmol/L (96-108); Cholesterol 195 mg/dL (<200); Estimated Glomerular Filt Rate > 60; Glucose Fasting 102 mg/dL (60-99); HDL Cholesterol 62 mg/dL (>40); LDL Cholesterol Calculated 116 mg/dL (<100); Sodium 140 mmol/L (135-145); Total Protein 7.2 g/dL (6.5-8.0); Triglycerides 88 mg/dL (<150)
[2023-09-05 12:17] LABS: Free T4 (Free Thyroxine) 1.13 ng/dL (0.71-1.85); Thyroid Stimulating Hormone 3.63 uIU/mL (0.32-4.0)
== END 2023-09-05 08:01 | disposition home or self-care (01) ==
LOC: HO.HMGCLDS 08:00
PROVIDERS: Absent Provider Internal Medicine Medical Oncology; PCP Internal Medicine; Visit Provider Internal Medicine
DX: C34.91 Malignant neoplasm of unspecified part of right bronchus or lung (principal); I42.9 Cardiomyopathy, unspecified; J44.9 Chronic obstructive pulmonary disease, unspecified; E07.9 Disorder of thyroid, unspecified; N40.0 Benign prostatic hyperplasia without lower urinary tract symptoms
CPT/HCPCS: 36415; 71046; 80053; 80061; 81003; 84439; 84443; 85025

== ENCOUNTER 2024-01-18 16:35 | Outpatient (REF) | payer MEDICAID, SELFPAY ==
[2024-01-18 16:45] LABS: MANUAL DIFF FLAG NO
[2024-01-18 17:05] LABS: Basophils Absolute Auto 0.1 X10*3/uL (0.0-0.2); Basophils Percent Auto 0.9 % (0-2); Eosinophils Absolute Auto 0.1 X10*3/uL (0.0-0.4); Eosinophils Percent Auto 1.5 % (0-4); Hematocrit 43.9 % (42.0-52.0); Hemoglobin 14.5 g/dl (14.0-18.0); Imm Gran Abs Auto 0.04 X10*3/uL (0.00-0.03); Imm Gran Pct Auto 0.5 % (0.0-0.4); Lymphocytes Absolute Auto 1.9 X10*3/uL (1.2-4.9); Lymphocytes Percent Auto 23.8 % (20-40); Mean Platelet Volume 8.9 fL (9.4-12.4); Monocytes Absolute Auto 0.7 X10*3/uL (0.1-1.2); Monocytes Percent Auto 8.9 % (2-11); Neutrophils Absolute Auto 5.2 x10*3/uL (2.0-8.3); Neutrophils Percent Auto 64.4 % (45-73); Platelet Count 259 X10*3/uL (160-400); Red Blood Count 4.67 X10*6/uL (4.60-5.80); Red Cell Distribution Width 14.1 % (11.0-16.0)
[2024-01-18 17:41] LABS: Alanine Aminotransferase 12 U/L (0-40); Alkaline Phosphatase 64 U/L (39-117); Anion Gap 10 (12-20); Aspartate Amino Transferase 15 U/L (5-37); Bilirubin Total 0.4 mg/dL (0.0-1.0); Blood Urea Nitrogen 16 mg/dL (9-16); C Reactive Protein 0.36 mg/dL (< or = 0.50); Calcium 9.3 mg/dL (8.4-10.2); Carbon Dioxide 31 mmol/L (22-29); Chloride 105 mmol/L (96-108); Estimated Glomerular Filt Rate > 60; Glucose Random 77 mg/dL (60-115); Potassium 4.1 mmol/L (3.3-5.1); Sodium 142 mmol/L (135-145); Total Protein 7.2 g/dL (6.5-8.0)
[2024-01-18 18:01] LABS: Erythrocyte Sedimentation Rate 3 MM/HR (0-15)
== END 2024-01-18 16:36 | disposition home or self-care (01) ==
LOC: HO.LAB 16:35
PROVIDERS: PCP Internal Medicine; Visit Provider Internal Medicine
DX: J44.9 Chronic obstructive pulmonary disease, unspecified (principal); I48.0 Paroxysmal atrial fibrillation; D72.829 Elevated white blood cell count, unspecified
CPT/HCPCS: 36415; 80053; 82550; 85025; 85652; 86140

== ENCOUNTER 2024-07-31 09:04 | Outpatient (REF) | payer MEDICAID, SELFPAY ==
[2024-07-31 11:29] LABS: Free T4 (Free Thyroxine) 1.23 ng/dL (0.71-1.85); Thyroid Stimulating Hormone 2.93 uIU/mL (0.32-4.0)
== END 2024-07-31 09:05 | disposition home or self-care (01) ==
LOC: HO.HMGCLDS 09:04
PROVIDERS: PCP Internal Medicine; Visit Provider Internal Medicine Endocrinology, Diabetes & Metabolism
DX: E05.90 Thyrotoxicosis, unspecified without thyrotoxic crisis or storm (principal)
CPT/HCPCS: 36415; 84439; 84443; 84481

== ENCOUNTER 2024-09-02 08:54 | Outpatient (REF) | payer MEDICAID, SELFPAY ==
--- NOTE | ~2024-09-02 | XR_ITS ---
EXAMINATION: XR CHEST CLINICAL INFORMATION: C34.91 NON SMALL CARCINOMA OF RIGHT LUNG. EMPHYSEMA. COMPARISON: 09/05/2023, 04/30/2023, and dating back to 09/13/2021. TECHNIQUE: 2 views of the chest were obtained. FINDINGS: There is been a total right pneumonectomy, with opacity throughout the right hemithorax. There is mediastinal shift to the right. The left lung is hyperaerated but clear. No consolidation or effusion. No suspicious nodules. Mediastinal structures are largely obscured due to the right. Aortic contour is normal. No soft tissue or osseous abnormality seen. XR/XR chest 4 views IMPRESSION: 1. No acute findings. No significant change. 2. Right pneumonectomy with compensatory hyperaeration of the left lung with likely underlying COPD. 3. Mediastinal shift into the right thorax. Electronically signed by: Ba Fraser MD 09/10/2024 08:38 AM [facility]
== END 2024-09-02 08:55 | disposition home or self-care (01) ==
LOC: HO.HMGCX 08:54
PROVIDERS: PCP Internal Medicine; Visit Provider Internal Medicine Medical Oncology
DX: J43.9 Emphysema, unspecified (principal); C34.91 Malignant neoplasm of unspecified part of right bronchus or lung
CPT/HCPCS: 71048

== ENCOUNTER → 2024-09-02 09:00 | Outpatient (BNV) | payer MEDICAID, SELFPAY | PROVIDERS: PCP Internal Medicine; Visit Provider Radiology Diagnostic Radiology | DX: C34.91 Malignant neoplasm of unspecified part of right bronchus or lung (principal) | CPT/HCPCS: 74018 ==

== ENCOUNTER 2024-12-18 08:11 | Outpatient (REF) | payer MEDICAID, SELFPAY ==
--- OUTSIDE RECORDS SUMMARY | 2024-12-18 08:33 | XMS_ITS ---
Author Organization Kodak Gunn III, MD Address [address] [place] [address] Care Team Providers Care Kitchen Assistant Name Role Phone Braden Bang MD Primary Care Provider Kodak Torres [phone] REASON FOR VISIT Medical record request Social History Sex Assigned At : Social History Observation Description Sex Assigned At Male Encounters Encounter Location Date Provider Diagnosis Kodak Gunn III, MD [address] [place] [address] [place] [address] 10/02/2023 Kodak Gunn Plan Of Treatment Next Appt Details Provider Name:Kodak Gunn, 09/10/2025 09:00:00 AM, [address] [place] [address] [place], [address], Progress Notes * RITU CHAIDEZ DDOB:1959 (63 yo M)Acc No.[id number]:10/02/2023 Patient:?RITU CHAIDEZ :1960???Age:63 Y???Sex:Male Address:[place] [address], [address] * true * Date:? Generated for Printi ng/Faxing/eTransmitting on:?12/18/2024 08:32 AM EDT
--- OUTSIDE RECORDS SUMMARY | 2024-12-18 08:33 | XMS_ITS ---
Author Organization Kodak Gunn III, MD Address [address] [place] [address] Care Team Providers Care Electronic Prepress Technician Name Role Phone Braden Bang MD Primary Care Provider Kodak Torres Unavailable [phone] Allergies Allergen (clinical drug ingredient) Drug/Non Drug [...] Orally ever y other day Active pyRIDostigmine [place] 60 MG 1 tablet Or ally every [...] Date Provider Diagnosis Kodak Gunn III, MD [address] [place] [address] [place] [address] 09/10/2024 Kodak Gunn Emphysema lung J43.9 ; [...] tablet Orally ever y other day pyRIDostigmine [place] 60 MG 1 tablet Orally every 4 [...] check-up Provider Name:Kodak Gunn, 09/10/2025 09:00:00 AM, [address] [place] [address] DR, [facility] [address], [place], [address], Progress Notes * FRANSISCO CHAIDEZ DDOB:1959 (64 yo M)Acc No.[id number]:09/10/2024 Progress Notes Patient:?FRANSISCO CHAIDEZ Provider:?Kodak Gunn MD :1960???Age:64 Y???Sex:Male Yayo e:09/10/2024 Address:[address], [facility], [id number] Pcp:Braden Bang MD Subjective: * Chief Complaints: * ???Pneumonectomy right lunng adenocarcinoma 2017Adenocarcinoma excised left upper lobe OPDEmphysemaHyperthyroidismBenign prostatic hypertrophyMyasthenia gravis * HPI: ???COVID-19 Screening:?Questions?Have you experienced fever, chills, cough, sore throat, shortness of breath, difficulty breathing, muscle aches, loss of taste or smell??No ?Have you been exposed to the virus within the last 10 days??No ?Have you travelled internationally in the last 10 days??No ?Have you been exposed to COVID-19 in the past??No ???:?The patient, Fransisco, is a 64-year-old male who had a [...] is unchanged from the previous one. * ROS:?General/Constitutional:?pain?only normal aches and pains.?Chills?denies.?Fatigue?admits.?Fever?denies.?ENT:?Decreased hearing?mild.?Respiratory:?Cough?non-productive.?Cardiovascular:?Chest pain with exertion?denies.?Dyspnea on exertion?denies.?Shortness of breath?with exertion.?Gastrointestinal:?Constipation?occasional.?Decreased appetite?denies.?Diarrhea?denies.?Heartburn?denies.?Nausea?denies.?Rectal bleeding?denies.?Vomiting?denies.?Hematology:?bruising?denies.?petechiae?denies.?Swollen glands?none have been noted.?Genitourinary:?Frequent urination?once a night.?Musculoskeletal:?Muscle aches?denies.?Painful joints?denies.?Sciatica?denies.?Weakness?denies.?Skin:?Itching?denies.?Rash?denies.?Skin lesion(s)?denies.?Neurologic:?Difficulty speaking?denies.?Dizziness?denies.?Headache?denies.?Low back pain?denies.?Psychiatric:?Depressed mood?denies.? * Medical History:? * Surgical History:?Surgery le ft hand fingers due to a saw accident 2006CME, bronchoscopy 2016right pneumonectomy for non-small cell lung cancer January 2017needle biopsy 09/2021Total right pneumonectomy * Hospitalization/Major Diagno stic Procedure:?Not mentioned * Family History:?Father: dece ased 50 yrs, Tumor parotid gland, brain tumor.?Mother: alive 74 yrs, No illnesses.?2 son(s) - healthy. .? His sons are 23 and 27 and both are healthy and well. He has no grandchildren brothers or sisters. His grandfather has a history of lung disease. Not mentioned. * Social History:?Tobacco Use:?Tobacco Use/Smoking?Patient is a?former smoker ???Drugs/Alcohol:?Drugs?Have you used drugs other than those for medical reasons in the past 12 months? No.?Alcohol Screen?How often did you have a drink containing alcohol in the past year??2 to 4 times a month (2 points) ?How many drinks did you have on a typical day when you were drinking in the past year??1 or 2 drinks (0 point) ?How often did you have 6 or more drinks on one occasion in the past year??Never (0 point) ???He is with 2 sons age 23 and 27 who are healthy and well. He has no grandchildren. He works in the [employer] industry but has no exposures. He is a smoker. Smoking: Stopped in 2017. * Medications:?TakingMetoprolo l Succinate ER 25 MG Tablet Extended Release 24 Hour TAKE 1 TABLET BY MOUTH EVERY DAY Orally Once a day Flomax 0.4 MG Capsule 1 capsule Orally Once a day methIMAzole 5 MG Tablet 3 tablet with food Orally Once a day predniSONE 2.5 MG Tablet 1 tablet Orally every other day pyRIDostigmine [place] 60 MG Tablet 1 tablet Orally every [...] tablet Orally every other day Taking pyRIDostigmine [place] 60 MG Tablet 1 tablet Orally every [...] reviewed and reconciled with the patient * Allergies:?Hazlenutsno[Aller gies Verified] Objective: * Vitals:?Ht: 72.5, Wt: 139, B UT:18.59, BP: 95/64, HR: 83, Temp: 97.2, Wt-k.05. * Examination: ???General Examination: ?GENERAL APPEARANCE:?pleasant, well nourished, well developed, in no acute distress, calm and relaxed, underweight, man.?HEAD:?atraumatic, normocephalic.?EYES:?eomi, perrla, anicteric, conjugate.?EARS:?normal.?NOSE:?septum intact.?ORAL CAVITY:?normal, unremarkable.?NECK/THYROID:?no jugular venous distention, no carotid bruit, thyroid normal.?LYMPH NODES:?no enlarged lymph nodes,spleen normal.?SKIN:?no suspicious lesions, anicteric.?HEART:?no clicks, gallops, murmurs, or rubs, regular rhythm, S1, S2 normal, no s3, or vascular bruits.?LUNGS:?clear to auscultation, No Breath sounds right lung.?BREASTS:??no masses palpable bilaterally.?ABDOMEN:?bowel sounds normal, no ascites, no organomegaly, no mass, Underweight.?RECTAL EXAM:?not examined.?MUSCULOSKELETAL:?extremities unremarkable, no clubbing, cyanosis or edema.?PERIPHERAL PULSES:?normal.?NEUROLOGIC:?alert and oriented, cranial nerves 2-12 grossly intact, deep tendon reflexes 2+ symmetrical, motor strength normal upper and lower extremities, sensory exam intact.?PSYCH:?alert, oriented.? Assessment: * Assessment: 1.?Non-small cell carcinoma of right lung - C34.91 (Primary)???Notes :There was no sign of a new primary tumor or recurrence of the previous disease. There seems to be no long-term consequence of his treatment.???2.?Emphysema lung - J43.9???Notes :He remains short of breath with minimal exertion. There is no intercurrent lung disease. He is no longer smoking. He was encouraged to stay physically active.???3.?Underweight - R63.6???Notes :He has lost 9 more pounds body mass index is 18.6.? The last time his thyroid functions were checked they were normal.? He says his appetite is good.? He was returned to primary care to evaluate the cause of this.? Repeat blood work was thyroid function tests as indicated.???4.?COPD (chronic obstructive pulmonary disease) - J44.9???Notes :His respiration today was unremarkable and he is no longer smoking. He is short of breath with stair climbing but conduction activities of daily life normally otherwise.???5.?Hyperthyroidism - E05.90???Notes :He has been compliant with his medication. He has no symptoms of hyperthyroidism and seems to be stable.???6.?Myasthenia gravis - G70.00???Notes :He was continued on current medication.???7.?Benign prostatic hyperplasia with lower urinary tract symptoms - N40.1???Notes :He arises from sleep once or twice a night to urinate. He is taking tamsulosin. We discussed lifestyle modification as a way of controlling nocturnal urinating.??? Plan: * Treatment: 2.?Emphysema lung? Continue Metoprolol Succinate ER Tablet Extended Release 24 Hour, 25 MG, TAKE 1 TABLET BY MOUTH EVERY DAY, Orally, Once a day;?Continue Flomax Capsule, 0.4 MG, 1 capsule, Orally, Once a day; Continue methIMAzole Tablet, 5 MG, 3 tablet with food, Orally, Once a day;?Continue predniSONE Tablet, 2.5 MG, 1 tablet, Orally, every other day;?Continue pyRIDostigmine [place] Tablet, 60 MG, 1 tablet, Orally, every 4 hrs;?Continue Tamsulosin HCl Capsule, 0.4 MG, 1 capsule, Orally, Once a day;?Continue Levothyroxine Sodium Capsule, 88 MCG, 1 capsule in the morning on an empty stomach, Orally, Once a day;?Continue Ventolin HFA Aerosol Solution, 108 (90 Base) MCG/ACT, Inhalation;?Continue Anoro Ellipta Aerosol Powder Breath Activated, 62.5-25 MCG/ACT, Inhalation; Continue Entresto Tablet, 24-26 MG, Oral;?Continue Finasteride Tablet, 5 MG, Oral.?Imaging: XR CHEST 2 VIEW PA & LAT * Procedure Codes:? * Preventive Medicine:? ??Counseling:?Care goal follow-up plan:?Counseling for abnormal BMI given?Yes ?Below Normal BMI Follow-up?Dietary education for weight gain, Dietary management education, guidance, and counseling ??COPD Care Plan:?Patient Lifestyle Goals?Relieve symptoms and improve quality of life, Reduce number of ED and hospitalizations, Be able to be more active with friends and family.?Treatment Goals?Eat a nutritious diet and increase water consumption to 6-8 glasses a day.?Barriers?no barriers.?Self-Managment Goals?Eat a healthy diet.? * Follow Up:?1 Year, About noble ry year (Reason: OV, Regular check-up) * Images: * Sign off status: Completed true * Provider:?Kodak Gunn MD Date:?01/2024 Generated for Kendalli ng/Derrick/eTransmitting on:?12/18/2024 08:32 AM EDT History and Physical Notes * HPI (History of Present Illness) Category Sub-Category Detail Notes COVID-19 Screening Questions Have you had any new onset fever, chills, cough, congestion, sore throat, shortness of breath, muscle aches?: No Have you been exposed to the virus withi n the last 10 days?: No Have you travelled internationally in last 10 days?: No Have you been [...]
--- OUTSIDE RECORDS SUMMARY | 2024-12-18 08:33 | XMS_ITS ---
Author Organization Kodak Gunn III, MD Address [address] [place] [address] Care Team Providers Care Data Programmer Name Role Phone Braden Bang MD Primary Care Provider Kodak Torres Unavailable [phone] Allergies Allergen (clinical drug ingredient) Drug/Non Drug Allergy documented on EMR Reaction Allergy Type Onset Date Status Hazlenuts (uncoded) Unknown Allergy Active REASON FOR VISIT Followup, Resected non-small cell carcinoma, right lung, COPD, Emphysema, Hyperthyroid, Myasthenia gravis, Benign prostatic hypertrophy Medications Medication SIG (Take, Route, Frequency, Duration) Notes Start Date End Date Status Ventolin HFA 108 (90 Base) MCG/ACT Inhalation Active Finasteride 5 MG Oral Act page Metoprolol Succinate ER 25 MG TAKE 1 TABLET BY MOUTH EVERY DAY Orally Once a day Active Anoro Ellipta 62.5-25 MCG/ACT Inhalation Active Entresto 24-26 MG Oral Ac tive Levothyroxine Sodium 88 MCG 1 capsule in the morning on an empty stomach Orally Once a day Active Tamsulosin HCl 0.4 MG 1 capsule Orally O nce a day Active predniSONE 2.5 MG 1 tablet Orally ever y other day Active pyRIDostigmine [place] 60 MG 1 tablet Or ally every 4 hrs Active methIMAzole 5 MG 3 tablet with food Orally Once a day Active Flomax 0.4 MG 1 capsule Orally Onc e a day 03/19/2017 Active Social History Tobacco Use: Social History Observation Description Date Details (start date - stop date) Former Smoker NA - 03/13/2017 Sex Assigned At : Social History Observation Description Sex Assigned At Male Tobacco Use/Smoking Question Answer Notes Patient is a former smoker When did you stop smoking? 03/13/2017 How long has it been since you last smoked? 5-10 years Additional Findings: Tobacco Non-User Ex-cigaret te smoker Vital Signs Temperature 98.4 degrees Fahrenheit 09/10/20 23 Blood pressure systolic 100 mm Hg 09/10/20 23 Blood pressure diastolic 60 mm Hg 023 Heart Rate 74 /min 09/10/2023 Height 72.5 in 09/10/2023 Weight 143 lbs 09/10/2023 BMI 19.13 kg/m2 09/10/2023 Encounters Encounter Location Date Provider Diagnosis Kodak Gunn III, MD [address] [place] [address] [place] [address] 09/10/2023 Kodak Gunn Emphysema lung J43.9 ; Non-small cell carcinoma of right lung C34.91 ; Former smoker Z87.891 ; COPD (chronic obstructive pulmonary disease) J44.9 ; Hyperthyroidism E05.90 ; Myasthenia gravis G70.00 and Underweight R63.6 Assessments Encounter Date Diagnosis (ICD Code) Assessment Notes T reatment Notes Treatment Clinical Notes 09/10/2023 Emphysema lung (ICD-10 - J43.9) He remains short of breath with minimal exertion. There is no intercurrent lung disease. He is no longer smoking. He was encouraged to stay physically active. 09/10/2023 Non-small cell carcinoma of right lung (ICD-10 - C34.91) There was no sign of a new primary tumor or recurrence of the previous disease. There seems to be no long-term consequence of his treatment. 09/10/2023 Former smoker (ICD-1 0 - Z87.891) He is highly motivated not to smoke. He has a plan for prevention of relapse in times of illness and distress. 09/10/2023 COPD (chronic obstructive pulmonary disease) (ICD-10 - J44.9) His respiration today was unremarkable and he is no longer smoking. He is short of breath with stair climbing but conduction activities of daily life normally otherwise. 09/10/2023 Hyperthyroidism (ICD-10 - E05.90) He has been compliant with his medication. He has no symptoms of hyperthyroidism and seems to be stable. 09/10/2023 Myasthenia gravis (ICD-10 - G70.00) He was continued on current medication. 09/10/2023 Underweight (ICD-10 - R63.6) His weight is stable with a body mass index of 19. Plan Of Treatment Medication Medication Name Sig Start Date Stop Date Notes Ventolin HFA 108 (90 Base) MCG/ACT Inhalation Finasteride 5 MG Oral Metoprolol Succinate ER 25 MG TAKE 1 TAB LET BY MOUTH EVERY DAY Orally Once a day Anoro Ellipta 62.5-25 MCG/ACT Inhalation Entresto 24-26 MG Oral Levothyroxine Sodium 88 MCG 1 capsule in the morning on an empty stomach Orally Once a day Tamsulosin HCl 0.4 MG 1 capsule Orally Once a day predniSONE 2.5 MG 1 tablet Orally ever y other day pyRIDostigmine [place] 60 MG 1 tablet Orally every 4 hrs methIMAzole 5 MG 3 tablet with food O rally Once a day Flomax 0.4 MG 1 capsule Orally Once a day 03/19/2017 Pending Test Test Name Order Date XR chest 4 views 09/10/2023 Next Appt Details Follow Up: 1 Year, Reason: O V Provider Name:Kodak Gunn, 09/10/2025 09:00:00 AM, [address] [place] [address] , [place] [address], [place], [address], Progress Notes * RITU CHAIDEZ DDOB:1959 (63 yo M)Acc No.[id number]:09/10/2023 Progress Notes Patient:?RITU CHAIDEZ Provider:?Kodak Gunn MD :1960???Age:63 Y???Sex:Male Yayo e:09/10/2023 Address:[facility] [address] [address] [id number] Pcp:Braden Bang MD Subjective: * Chief Complaints: * ???FollowupResected non-smal l cell carcinoma, right lungCOPDEmphysemaHyperthyroidMyasthenia gravisBenign prostatic hypertrophy * HPI: ???COVID-19 Screening:?Questions?Have you experienced fever, chills, cough, sore throat, shortness of breath, difficulty breathing, muscle aches, loss of taste or smell??No ?Have you been exposed to the virus within the last 10 days??No ?Have you travelled internationally in the last 10 days??No ?Have you been exposed to COVID-19 in the past??No ? He returns for a scheduled visit follow-up on his history of non-small cell carcinoma. The right lung resected with a pneumonectomy. He shows no signs of relapse. He denies any pain. There is no increasing shortness of breath. He no longer smokes cigarettes. He denies any cough or hemoptysis. His examination today was unremarkable. * ROS:?General/Constitutional:?pain?only normal aches and pains.?Chills?denies.?Fatigue?admits.?Fever?denies.?ENT:?Decreased hearing?denies.?Respiratory:?Cough?denies.?Cardiovascular:?Chest pain with exertion?denies.?Dyspnea on exertion?with moderate activity.?Shortness of breath?that is moderate.?Gastrointestinal:?Constipation?occasional.?Decreased appetite?denies.?Diarrhea?denies.?Heartburn?denies.?Nausea?denies.?Rectal bleeding?denies.?Vomiting?denies.?Hematology:?bruising?denies.?petechiae?denies.?Swollen glands?none have been noted.?Genitourinary:?Frequent urination?once a night.?Musculoskeletal:?Muscle aches?denies.?Painful joints?denies.?Sciatica?denies.?Weakness?denies.?Skin:?Itching?denies.?Rash?denies.?Skin lesion(s)?denies.?Neurologic:?Difficulty speaking?denies.?Dizziness?denies.?Headache?denies.?Low back pain?denies.?Psychiatric:?Depressed mood?denies.? * Medical History:? * Surgical History:?Surgery le ft hand fingers due to a saw accident 2007CME, bronchoscopy 2016right pneumonectomy for non-small cell lung cancer January 2017needle biopsy 09/2021 * Hospitalization/Major Diagno stic Procedure:? * Family History:?Father: dece ased 50 yrs, Tumor parotid gland, brain tumor.?Mother: alive 74 yrs, No illnesses.?2 son(s) - healthy. .? His sons are 23 and 27 and both are healthy and well. He has no grandchildren brothers or sisters. His grandfather has a history of lung disease. * Social History:?Tobacco Use:?Tobacco Use/Smoking?Patient is a?former smoker ?When did you stop smoking??03/13/2017 ?How long has it been since you last smoked??5-10 years ?Additional Findings: Tobacco Non-User?Ex-cigarette smoker ???He is with 2 sons age 23 and 27 who are healthy and well. He has no grandchildren. He works in the [employer] industry but has no exposures. He is a smoker. * Medications:?TakingMetoprolo l Succinate ER 25 MG Tablet Extended Release 24 Hour TAKE 1 TABLET BY MOUTH EVERY DAY Orally Once a dayFlomax 0.4 MG Capsule 1 capsule Orally Once a daymethIMAzole 5 MG Tablet 3 tablet with food Orally Once a daypredniSONE 2.5 MG Tablet 1 tablet Orally every other daypyRIDostigmine Daniels 60 MG Tablet 1 tablet Orally every 4 hrsTamsulosin HCl 0.4 MG Capsule 1 capsule Orally Once a dayLevothyroxine Sodium 88 MCG Capsule 1 capsule in the morning on an empty stomach Orally Once a dayVentolin HFA 108 (90 Base) MCG/ACT Aerosol Solution Inhalation Anoro Ellipta 62.5-25 MCG/ACT Aerosol Powder Breath Activated Inhalation Entresto 24- 26 MG Tablet Oral Finasteride 5 MG Tablet Oral Taking Metoprolol Succinate ER 25 MG Tablet Extended Release 24 Hour TAKE 1 TABLET BY MOUTH EVERY DAY Orally Once a dayTaking Flomax 0.4 MG Capsule 1 capsule Orally Once a dayTaking methIMAzole 5 MG Tablet 3 tablet with food Orally Once a dayTaking predniSONE 2.5 MG Tablet 1 tablet Orally every other dayTaking pyRIDostigmine [place] 60 MG Tablet 1 tablet Orally every 4 hrsTaking Tamsulosin HCl 0.4 MG Capsule 1 capsule Orally Once a dayTaking Levothyroxine Sodium 88 MCG Capsule 1 capsule in the morning on an empty stomach Orally Once a dayTaking Ventolin HFA 108 (90 Base) MCG/ACT Aerosol Solution Inhalation Taking Anoro Ellipta 62.5-25 MCG/ACT Aerosol Powder Breath Activated Inhalation Taking Entresto 24-26 MG Tablet Oral Taking Finasteride 5 MG Tablet Oral * Allergies:?Hazlenuts Objective: * Vitals:?Ht: 72.5, Wt: 143, B [place]:19.13, BP: 100/60, HR: 74, Temp: 98.4, Wt-k.86. * Examination: ???General Examination: ?GENERAL APPEARANCE:?pleasant, well nourished, well developed, in no acute distress, calm and relaxed , underweight , man.?HEAD:?atraumatic, normocephalic.?EYES:?eomi, perrla, anicteric, conjugate.?EARS:?normal.?NOSE:?septum intact.?ORAL CAVITY:?normal, unremarkable.?NECK/THYROID:?no jugular venous distention, no carotid bruit, thyroid normal.?LYMPH NODES:?no enlarged lymph nodes,spleen normal.?SKIN:?no suspicious lesions, anicteric.?HEART:?no clicks, gallops, murmurs, or rubs, regular rhythm, S1, S2 normal, no s3, or vascular bruits.?LUNGS:?clear to auscultation on the right, absent breath sounds on the left , diminished breath sounds throughout , no wheezes, rales, rhonchi.?BREASTS:??no masses palpable bilaterally.?ABDOMEN:?bowel sounds normal, no ascites, no organomegaly, no mass.?RECTAL EXAM:?not examined.?MUSCULOSKELETAL:?extremities unremarkable, no clubbing, cyanosis or edema.?PERIPHERAL PULSES:?normal.?NEUROLOGIC:?alert and oriented, cranial nerves 2-12 grossly intact, deep tendon reflexes 2+ symmetrical, motor strength normal upper and lower extremities, sensory exam intact.?PSYCH:?alert, oriented.? Assessment: * Assessment: 1.?Emphysema lung - J43.9 (P rimary), He remains short of breath with minimal exertion. There is no intercurrent lung disease. He is no longer smoking. He was encouraged to stay physically active.?2.?Non-small cell carcinoma of right lung - C34.91, There was no sign of a new primary tumor or recurrence of the previous disease. There seems to be no long-term consequence of his treatment.?3.?Former smoker - Z87.891, He is highly motivated not to smoke. He has a plan for prevention of relapse in times of illness and distress.?4.?COPD (chronic obstructive pulmonary disease) - J44.9, His respiration today was unremarkable and he is no longer smoking. He is short of breath with stair climbing but conduction activities of daily life normally otherwise.?5. Hyperthyroidism - E05.90, He has been compliant with his medication. He has no symptoms of hyperthyroidism and seems to be stable.?6.?Myasthenia gravis - G70.00, He was continued on current medication.?7.?Underweight - R63.6, His weight is stable with a body mass index of 19.? Plan: * Treatment: 2.?Non-small cell carcinoma of right lung?Imaging: XR chest 4 views * Procedure Codes:? * Preventive Medicine:? ??Counseling:?Care goal follow-up plan:?Counseling for abnormal BMI given?Yes ?Below Normal BMI Follow-up?Dietary education for weight gain, Dietary management education, guidance, and counseling, Feeding regime, Lifestyle education regarding diet, Nutrition / feeding management, Prescribed diet education, Special diet education, Intervention, Order not done: Medical or Other reason not done ??COPD Care Plan:?Patient Lifestyle Goals?Relieve symptoms and improve quality of life, Reduce number of ED and hospitalizations, Be able to be more active with friends and family.?Treatment Goals?Exercise to help whole body, including lungs, Eat a nutritious diet and increase water consumption to 6-8 glasses a day.?Barriers?no barriers.?Self-Managment Goals?Get an air purifier for the rooms you are in the most, Eat a healthy diet.? * Follow Up:?1 Year (Reason: O V) * Images: * Sign off status: Completed true * Provider:?Kodak Gunn MD Date:?01/2023 Generated for Timothy moreno/Derrick/eTtyrasmitting on:?12/18/2024 08:32 AM EDT History and Physical Notes * HPI (History of Present Illness) Category Sub-Category Detail Notes COVID-19 Screening Questions Have you had any new onset fever, chills, cough, congestion, sore throat, shortness of breath, muscle aches?: No Have you been exposed to the virus withi n the last 10 days?: No Have you travelled internationally in e last 10 days?: No Have you been exposed to COVID-19 in the past?: No Examination Category Sub-Category Detail Notes General Examination GENERAL APPEARANCE: pleasant , well nourished, well developed, in no acute distress, calm and relaxed , underweight , man HEAD: atraumatic, normocep halic EYES: eomi, perrla, anicte jose j, conjugate EARS: normal NOSE: septum intact NECK/THYROID: no jugular venous di stention, no carotid bruit, thyroid normal HEART: no clicks, gallops, murmurs, or rubs, regular rhythm, S1, S2 normal, no s3, or vascular bruits LUNGS: clear to auscultatio n on the right, absent breath sounds on the left , diminished breath sounds throughout , no wheezes, rales, rhonchi ABDOMEN: bowel sounds normal, no ascites, no organomegaly, no mass NEUROLOGIC: alert and oriented, cranial nerves 2-12 [...]
--- OUTSIDE RECORDS SUMMARY | 2024-12-18 08:33 | XMS_ITS | Patient Health Record ---
Author Organization Kodak Gunn III, MD Address [address] [place] [address] Care Team Providers Care Silk Spotter Name Role Phone Braden Bang MD Primary Care Provider Kodak Torres Unavailable [phone] Allergies Allergen (clinical drug ingredient) Drug/Non Drug Allergy documented on EMR Reaction Allergy Type Onset Date Status Hazlenuts (uncoded) Unknown Allergy Active Results Component Value Reference Range Notes XR chest 4 views Reviewed date:09/15/2024 05:36:27 AM Interpretation: Performing Lab: Notes/Report: [facility] [address] [place] [address] XRay Report Signed Patient: Ritu Chaidez MR#: [id number] : 1960 Acct:[id number] Age/Sex: 64 / M ADM Date: 09/02/24 [facility] Dr: Kodak Gunn MD Ordering Physician: Kodak Gunn MD Date of Service: 09/02/24 Procedure(s): XR chest 4 views Accession Number(s): [id number] cc: Kodak Gunn MD; Braden Bang MD EXAMINATION: XR CHEST CLINICAL INFORMATION: C34.91 NON SMALL CARCINOMA OF RIGHT LUNG. EMPHYSEMA. COMPARISON: 09/05/2023, 04/30/2023, and dating back to 09/13/2021. TECHNIQUE: 2 views of the chest were obtained. FINDINGS: There is been a total right pneumonectomy, with opacity throughout the right hemithorax. There is mediastinal shift to the right. The left lung is hyperaerated but clear. No consolidation or effusion. No suspicious nodules. Mediastinal structures are largely obscured due to the right. Aortic contour is normal. No soft tissue or osseous abnormality seen. XR/XR chest 4 views IMPRESSION: 1. No acute findings. No significant change. 2. Right pneumonectomy with compensatory hyperaeration of the left lung with likely underlying COPD. 3. Mediastinal shift into the right thorax. Electronically signed by: Ba Fraser MD 09/10/2024 08:38 AM EST Dictated By: Ba Fraser MD Signed By: <Electronically signed by Ba Fraser MD in OV> 09/10/24837 DD/ 9 TD/TT: 09/02/24904 Moderate Needs Teacher: [facility] [address] [place] [address] [place] [address] XRay Report Signed Patient: Esa Chaidez MR#: [id number] : 1960 Acct:[id number] Age/Sex: 64 / M ADM Date: 09/02/24 Loc: [facility] Attending Dr: Kodak Gunn MD Ordering Physician: Kodak Gunn MD Date of Service: 09/02/24 Procedure(s): XR chest 4 views Accession Number(s): [id number] cc: Kodak Gunn MD; Braden Bang MD EXAMINATION: XR CHEST CLINICAL INFORMATION: C34.91 NON SMALL CAR CINOMA OF RIGHT LUNG. EMPHYSEMA. COMPARISON: 09/05/2023, 3, and dating back to 09/13/2021. TECHNIQUE: 2 views of the chest were obtained. FINDINGS: There is been a tota l right pneumonectomy, with opacity throughout the right hemithorax. Th ere is mediastinal shift to the right. The left lung is hyp eraerated but clear. No consolidation or effusion. No suspicious nodules. Mediastinal structur es are largely obscured due to the right. Aortic contour is normal. No soft tissue or os seous abnormality seen. X R/XR chest 4 views IMPRESSION: 1. No acute findings . No significant change. 2. Right pneumonecto my with compensatory hyperaeration of the left lung with likely underlying COPD. 3. Mediastinal shift into the right thorax. Electronically chad d by: Ba Fraser MD 09/10/2024 08:38 AM [facility] Dictated By: Ba Fraser MD Signed By: <Maninder grewal signed by Ba Fraser MD in OV> 09/10/24 08 DD/ 9 TD/TT: 09/02/24904 Moderate Needs Teacher: Reason For Referral No Information Medications Medication SIG (Take, Route, Frequency, Duration) Notes Start Date End Date Status Ventolin HFA 108 (90 Base) MCG/ACT Inhalation Active Anoro Ellipta 62.5-25 MCG/ACT Inhalation Active Entresto 24-26 MG Oral Ac tive Finasteride 5 MG Oral Act page Metoprolol Succinate ER 25 MG TAKE 1 TABLET BY MOUTH EVERY DAY Orally Once a day Active Flomax 0.4 MG 1 capsule Orally Onc e a day 03/19/2017 Active methIMAzole 5 MG 3 tablet with food Orally Once a day Active predniSONE 2.5 MG 1 tablet Orally ever y other day Active pyRIDostigmine Peebles 60 MG 1 tablet Or ally every 4 hrs Active Tamsulosin HCl 0.4 MG 1 capsule Orally O nce a day Active Levothyroxine Sodium 88 MCG 1 capsule in the morning on an empty stomach Orally Once a day Active Social History [...] in the past year? Never (0 point) Problems Problem Type SNOMED Code ICD Code Onset Dates Problem Status W/U Status Risk Notes Problem 7255382 Former smoker (Z87.891) Active confirmed He is highly motivated not to smoke. He has a plan for prevention of relapse in times of illness and distress. Problem 35139609 Weight loss (R63.4) Active confirmed He has gained back 3 pounds. We discussed diet nutrition at length. He will use supplements to maintain his weight. Problem 681700592 Underweight (R63.6) Active confirmed He has lost 9 more pounds body mass index is 18.6. The last time his thyroid functions were checked they were normal. He says his appetite is good. He was returned to primary care to evaluate the cause of this. Repeat blood work was thyroid function tests as indicated. Problem 76552864 COPD (chronic obstructive pulmonary disease) (J44.9) Active confirmed His respira tion today was unremarkable and he is no longer smoking. He is short of breath with stair climbing but conduction activities of daily life normally otherwise. Problem 40831212 Emphysema lung (J43.9) Active confirmed He remains shor t of breath with minimal exertion. There is no intercurrent lung disease. He is no longer smoking. He was encouraged to stay physically active. Problem 05219231 Hyperthyroidism (E05.90) Active confirmed He has been compliant with his medication. He has no symptoms of hyperthyroidism and seems to be stable. 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 There seems to be no long-term consequence of his treatment. Problem 971229515 Benign prostatic hyperplasia with lower urinary tract symptoms (N40.1) Active confirmed He arises from sleep once or twice a night to urinate. He is taking tamsulosin. We discussed lifestyle modification as a way of controlling nocturnal urinating. Problem 37138787 Myasthenia gravi s (G70.00) Active confirmed He was continue d on current medication. Vital Signs Heart Rate 83 /min 09/10/2024 Temperature 97.2 degrees Fahrenheit 09/10/2024 Blood pressure diastolic 64 mm Hg 09/10/2024 Height 72.5 in 09/10/2024 Blood pressure systolic 95 mm Hg 09/10/2024 Weight 139 lbs 09/10/2024 BMI 18.59 kg/m2 09/10/2024 Encounters Encounter Location Date Provider Diagnosis Kodak Gunn III, MD [address] [place] [address] [address] [place], [place] [address] 09/10/2024 Kodak Gunn Emphysema lung J43.9 ; [...] of controlling nocturnal urinating. Plan Of Treatment Pending Test Test Name Order Date PROFILE, RANDOM (COMPREHENSIVE METABOLIC ) 07/19/2018 CBC w DIFF 07/19/[address] SKULL TO THIGHS 08/09/2016 XR CHEST 2 VIEW PA & LAT 09/10/2024 XR chest 4 views 09/10/2023 Next Appt Details Provider Name:Kodak Gunn, 09/10/2025 09:00:00 AM, [address] [place] [address] [address], [place], [address], Insurance Providers Payer Name Payer Address Payer Phone Subscriber Number Group Number Insured Name Patient Relationship to Insured Coverage Start Date Coverage End Date MEDICAID [address] [place] BALLESTEROS [id number] RITU CHAIDEZ Self - patient is the insured Medical (General) History Medical History History ICD Code non-small cell lung cancer right lung 20 16 COPD former smoker emphysema 2006 laceration left second and third fi urszula chi saw The patient had a total righ t pneumonectomy 17 years ago and a recurrence of lung cancer treated with radiation 2-3 years ago. He has been taking thyroid medicine since 2016 and also has ocular myasthenia gravis. He has emphysema. Surgical History Surgery Date(Month/Year) Surgery left hand fingers due to a saw a ccident 2006 CME, bronchoscopy 2015 right pneumonectomy for non-small cell l aaliyah cancer January 2017 needle biopsy 09/2021 Total right pneumonectomy Hospitalization History Reason Date(Month/Year) Not mentioned
[2024-12-18 10:07] LABS: MANUAL DIFF FLAG NO
[2024-12-18 10:09] LABS: Basophils Absolute Auto 0.1 X10*3/uL (0.0-0.2); Basophils Percent Auto 0.5 % (0-2); Eosinophils Absolute Auto 0.1 X10*3/uL (0.0-0.4); Eosinophils Percent Auto 0.5 % (0-4); Imm Gran Abs Auto 0.04 X10*3/uL (0.00-0.03); Imm Gran Pct Auto 0.4 % (0.0-0.4); Lymphocytes Percent Auto 10.5 % (20-40); Mean Corpuscular HGB Conc 34.1 g/dl (31.0-36.0); Mean Corpuscular Hemoglobin 31.8 pg (27.0-33.0); Mean Corpuscular Volume 93.4 fL (80.0-98.0); Mean Platelet Volume 9.2 fL (9.4-12.4); Monocytes Absolute Auto 0.8 X10*3/uL (0.1-1.2); Monocytes Percent Auto 8.1 % (2-11); Neutrophils Absolute Auto 7.7 x10*3/uL (2.0-8.3); Platelet Count 284 X10*3/uL (160-400); Red Blood Count 4.71 X10*6/uL (4.60-5.80); Red Cell Distribution Width 13.6 % (11.0-16.0); White Blood Count 9.6 X10*3/uL (4.8-10.8)
[2024-12-18 10:50] LABS: Alanine Aminotransferase 16 U/L (0-40); Aspartate Amino Transferase 21 U/L (5-37)
[2024-12-18 10:59] LABS: Thyroid Stimulating Hormone 2.61 uIU/mL (0.32-4.0)
== END 2024-12-18 08:12 | disposition home or self-care (01) ==
LOC: HO.HMGCLDS 08:11
PROVIDERS: Visit Provider Internal Medicine Endocrinology, Diabetes & Metabolism
DX: E05.90 Thyrotoxicosis, unspecified without thyrotoxic crisis or storm (principal)
CPT/HCPCS: 36415; 84439; 84443; 84450; 84460; 84481; 85025

== ENCOUNTER 2025-05-04 08:18 | Outpatient (AMB) | payer MEDICARE, MEDICAID, SELFPAY ==
--- OUTSIDE RECORDS SUMMARY | 2024-09-10 09:30 | XMS_ITS ---
Author Organization Kodak Gunn III, MD Address [address] [facility] [place] [address] Care Team Providers Care Rn Surgery Name Role Phone Braden Bang MD Primary Care Provider Kodak Torres Unavailable [phone] Allergies Allergen (clinical drug ingredient) Drug/Non Drug [...] Orally ever y other day Active pyRIDostigmine [place] 60 MG 1 tablet Or ally every [...] Date Provider Diagnosis Kodak Gunn III, MD [address] [place] [address] [place] [address] 09/10/2024 Kodak Gunn Emphysema lung J43.9 ; [...] tablet Orally ever y other day pyRIDostigmine [place] 60 MG 1 tablet Orally every 4 [...] year, Reason: OV, Regular check-up Provider Name:Kodak Gunn, 09/10/2025 09:00:00 AM, [address] [place] [address] DR, [facility] [address], [place], [address], Progress Notes * RITU CHAIDEZ DDOB:1959 (64 yo M)Acc No.[id number]:09/10/2024 Progress Notes Patient: RITU EISENBERG Provider: Alexsandra Gunn MD :1960 A ge:64 Y S ex:Male Date:09/10/2024 Address:[address], [place] , [id number] Pcp:Braden Bagn MD Subjective: * Chief Complaints: * P [...] T obacco Use: T obacco Use/Smoking P hebr is a f ormer smoker D rugs/Alcohol: [...] has no grandchildren. He works in the [employer] industry but has no exposures. He is a smoker. Smoking: Stopped in 2016. * Medications: T akingMetoprolol Succinate ER 25 MG Tablet Extended Release 24 Hour TAKE 1 TABLET BY MOUTH EVERY DAY Orally Once a day Flomax 0.4 MG Capsule 1 capsule Orally Once a day methIMAzole 5 MG Tablet 3 tablet with food Orally Once a day predniSONE 2.5 MG Tablet 1 tablet Orally every other day pyRIDostigmine [place] 60 MG Tablet 1 tablet Orally every [...] tablet Orally every other day Taking pyRIDostigmine [place] 60 MG Tablet 1 tablet Orally every [...] man. HEAD: a traumatic, normocephalic. EYES: e rin, perrla, anicteric, conjugate. EARS: n ormal. NOSE: [...] Orally, every other day; C ontinue pyRIDostigmine [place] Tablet, 60 MG, 1 tablet, Orally, every [...] Gunn MD Date: 11/11/2023 Generated for Timothy moreno/Faxing/eTransmitting on: 0 05/04/2025 08:27 AM EDT History and Physical Notes * HPI (History of Present Illness) Category Sub-Category Detail Notes COVID-19 Screening Questions Have you had any new onset fever, chills, cough, congestion, sore throat, shortness of breath, muscle aches?: No Have you been exposed to the virus withi n the last 10 days?: No Have you travelled internationally in [facility] last 10 days?: No Have you [...]
--- NOTE | 2025-05-04 08:17 | MHC.PC.OV ---
Vital Signs 05/04/25 08:20 05/04/25 08:26 Height 6 ft Weight 136 lb BP 108/76 Blood Pressure Location Lt brachial Position Sitting Respiration 16 Pulse 88 Pulse Source Pulse Oximeter Temp 98.7 F Pulse Oximetry (%) 98 Oxygen Delivery Method Room Air Intake Visit Reasons: Annual Physical New Fitter Up Required: No Accompanied by: Self / Same As Patient Allergies hazelnut Allergy (Verified 05/04/25 08:43) Anaphylaxis Medication List - Last Reconciled 05/04/25 by Camilo Singletary MD albuterol sulfate 90 mcg/actuation 2 puffs inhalation Q4H PRN finasteride 5 mg PO DAILY glycopyrrolate-formoterol 9-4.8 mcg (Bevespi Aerosphere) 2 puffs inhalation BID levothyroxine 88 mcg PO DAILY methimazole 5 mg PO DAILY metoprolol succinate ER 25 mg PO DAILY prednisone 1 mg PO DAILY pyridostigmine bromide 60 mg PO TID sacubitril-valsartan 24-26 mg (Entresto) 1 tab PO BID tamsulosin 0.4 mg PO DAILY umeclidinium-vilanterol 62.5-25 mcg/actuation 1 ea inhalation DAILY Tobacco use date assessed: 05/04/25 [facility] Medical History (Updated 05/04/25 @ 08:45 by Camilo Singletary MD) Personal history of nicotine dependence CAD (coronary artery disease) Non-small cell cancer of right lung (~2016) Heart disease Ocular myasthenia Graves disease Surgical History History of cardiac cath (~2016) History of hand surgery (~2006) History of lung surgery (~2016) Social History Patient Tobacco Use Status: Former Tobacco user e-Cigarette/Vaping Use: Never Used Substance Use Type: Marijuana Current occupational status: employed Current occupation: [employer] - Right hand dominant Questionnaire AUDIT C Alcohol Use Questionnaire (AUDIT-C) 1. How often do you have a drink containing alcohol?: 4 or more times a week 2. How many drinks containing alcohol do you have on a typical day when you are drinking?: 1 or 2 Total Score: 4 Physical exam (Primary Care) Vital Signs: Last Vital Signs Temp 98.7 F 05/04/25 08:26 Pulse 88 05/04/25 08:26 Resp 16 05/04/25 08:26 BP 108/76 05/04/25 08:26 Pulse Ox 98 05/04/25 08:26 Oxygen Delivery Method Room Air 05/04/25 08:26 Tobacco/Smoking Status: Tobacco use Status Tobacco use date assessed 05/04/25 05/04/25 08:28 Patient Tobacco Use Status Former Tobacco user 05/04/25 08:28 e-Cigarette/Vaping Use Never Used 05/04/25 08:28 Coding Level of Care Code New Pt Prev Care 40-64y(48868) Diagnoses Non-small cell cancer of right lung C34.91 Ocular myasthenia G70.00 Graves disease E05.00 CAD (coronary artery disease) I25.10 Annual physical exam Z00.00 Assessment & Plan Assessment & Plan (1) Non-small cell cancer of right lung: Onset Date: ~2016 Comment: (Adenocarcinoma right central lung on main pulmonary artery s/p pre &post-op chemo & Right pneumonectomy in 2017) Code(s): C34.91 - Malignant neoplasm of unspecified part of right bronchus or lung Category: Medical Plan: Condition is stable, has an oncologist (2) Ocular myasthenia: Code(s): G70.00 - Myasthenia gravis without (acute) exacerbation Category: Medical Plan: Condition is stable, sees a neurologist (DR Bernardo) (3) Graves disease: Code(s): E05.00 - Thyrotoxicosis with diffuse goiter without thyrotoxic crisis or storm Category: Medical Plan: Condition is stable. (4) CAD (coronary artery disease): Comment: (mild CAD - cardiac cath 2017) Code(s): I25.10 - Atherosclerotic heart disease of [place] coronary artery without angina pectoris Category: Medical Plan: Condition is stable. (5) Annual physical exam: Code(s): Z00.00 - Encounter for general adult medical examination without abnormal findings Plan: History of Present Illness - The patient is a 65-year-old male presenting for a physical examination and preventative care. - Small cell lung cancer diagnosed in 2015, treated with right lung pneumonectomy and chemotherapy in 2017. - Currently not on any cancer treatment and under the care of oncologist Dr. Hunter. - Chronic Obstructive Pulmonary Disease (COPD) with a history of smoking, currently not smoking. - Myasthenia gravis managed by neurologist Dr. Ansari. - Graves' disease managed by brand development manager Fela Akins. - Reports urinary symptoms, currently on tamsulosin and finasteride, no urologist follow-up. - Preventative care includes a recommendation for a colonoscopy, which has never been performed. Social History - Former smoker, currently not smoking. 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 - Lives with a significant other. Review of Systems - Respiratory: Denies current dyspnea or cough. - Neurological: Denies current neurological symptoms. - Genitourinary: Reports urinary symptoms, currently managed with medication. Physical Exam General: Cooperative and healthy appearing Nutritional Appearance: Well nourished Orientation/consciousness: Patient oriented x3 Limitations: No limitations Head: Normal to inspection General: Appearance normal, both eyes and all related structures Neck: Normal visual inspection Chest: Normal palpation of entire chest wall Respiratory: Right lung pneumonectomy, COPD ormal respiratory effort Neurology: Patient oriented x3, Myasthenia gravis Results Plan 1. Small Cell Lung Cancer - No current treatment required, follow-up with oncologist Dr. Hunter. 2. Chronic Obstructive Pulmonary Disease (Copd) - No current treatment changes, patient is a former smoker. 3. Myasthenia Gravis - Managed by neurologist Dr. Ansari, no changes discussed. 4. Graves' Disease - Managed by brand development manager Fela Akins, no changes discussed. 5. Urinary Symptoms - Continue current medications tamsulosin and finasteride, check PSA levels. 6. Preventative Care: Colonoscopy - Colonoscopy recommended, never performed before. Discussion Notes I discussed with the patient the importance of undergoing a colonoscopy as part of preventative care, given that he has never had one before. We also talked about monitoring his urinary symptoms and checking PSA levels. Follow-up with his oncologist, neurologist, and brand development manager was advised to continue managing his existing conditions. I will see him again in six months for a routine check-up. Patient Instructions - Schedule and complete a colonoscopy as recommended. - Continue taking prescribed medications for urinary symptoms and follow up on PSA levels. - Follow up with oncologist, neurologist, and brand development manager as previously scheduled. - Return for a routine check-up in six months. Orders: Orders Lipid Panel Today C34.91 - Malignant neoplasm of unspecified part of right bronchus or lung PSA,Total (Free>4and<10) Today C34.91 - Malignant neoplasm of unspecified part of right bronchus or lung Basic Metabolic Panel Today C34.91 - Malignant neoplasm of unspecified part of right bronchus or lung Liver Panel Today C34.91 - Malignant neoplasm of unspecified part of right bronchus or lung Thyroid Stimulating Hormone Today C34.91 - Malignant neoplasm of unspecified part of right bronchus or lung UA and rflx microscopic Today C34.91 - Malignant neoplasm of unspecified part of right bronchus or lung Complete Blood Count no Diff Today C34.91 - Malignant neoplasm of unspecified part of right bronchus or lung Referrals Gastroenterology Referral Z12.11 - Encounter for screening for malignant neoplasm of colon
[2025-05-04 08:26] VITALS: BP 108/76; PULSE 88; RESP 16; TEMP 37.1; O2SAT 98
--- OUTSIDE RECORDS SUMMARY | 2025-05-04 08:27 | XMS_ITS | Clinical Summary ---
Author Organization [facility] Address [address] [place] [address] Phone Care Team Providers Care Radio Antenna Installer Name Role Phone Braden Bang MD Primary Care Provider Blake Nicolas MD Unavailable Kodak Gunn MD Unavailable [phone] Gabriela Bernardo MD Unavailable Allergies Active Allergy Reactions Criticality Noted Date Comments Hazelnut Anaphylaxis High 12/20/2023 Medications ANORO ELLIPTA 62.5-25 mcg/actuation diskus inhaler Inhale 1 puff into the lungs daily. 4 Active tamsulosin (FLOMAX) 0.4 mg Cap Take 0.4 mg by mouth daily. 4 Active SACUBITRIL-PUMA SARTAN 24-26 mg per tablet Take 1 tablet by mouth 2 (two) times a day. 4 Active pyRIDostigmine (MESTINON) 60 mg tablet Take 60 mg by mouth 3 (three) times a day. 4 Active predniSONE (DELTASONE) 1 MG tablet Take 1 mg by mouth daily. 4 Active metoprolol succinate (TOPROL-XL) 25 MG 24 hr tablet Take 1 tablet by mouth every morning. 4 Active finasteride (PROSCAR) 5 mg tablet Take 5 mg by mouth every morning. 4 Active VENTOLIN HFA 90 mcg/actuation inhaler Inhale 2 puffs into the lungs every 4 (four) hours as needed. 4 Active levothyroxine (SYNTHROID, LEVOTHROID) 88 MCG tabletIndicati ons:Hyperthyro idism TAKE 1 TABLET BY MOUTH EVERY DAY IN THE MORNING 90 tablet 1 5 Active methIMAzole (TAPAZOLE) 5 MG tabletIndicati ons:Hyperthyro idism TAKE 1 TABLET (5 MG TOTAL) BY MOUTH DAILY. 90 tablet 5 Active methIMAzole (TAPAZOLE) 5 MG tabletIndicati ons:Hyperthyro idism TAKE 1 TABLET (5 MG TOTAL) BY MOUTH DAILY. 90 tablet 1 5 04/27/20 25 Discontinued Active Problems Problem Noted Date Diagnosed Date NSVT (nonsustained ventricular tachycardia) 10/2016 Hyperthyroidism Overview (12/20/2023): Dx when on amiodarone. TSH receptor antibody +ve. MMI started 07/2017. Challenging to control, added levothyroxine 09/2018. Assessment & Plan (12/24/2024 9:01 AM EDT): Clinically & biochemically euthyroid. Reports good consistency taking rx appropriately. Will repeat labs q6 months, sooner prn symptoms of thyroid dysfunction or > 10-15# weight change, or as otherwise clinically indicated. To call/message via portal if hasn't heard from me with results within 1-2 weeks. Discussed options for ongoing rx, he may want to consider surgery at some point. Assessment & Plan (12/20/2023 12:21 PM EDT): Clinically euthyroid. Biochemically euthyroid on last labs. Reports good consistency taking rx appropriately. Will check labs & adjust rx as appropriate. To call/message via portal if hasn't heard from me with results within 1-2 weeks. If levels normal, will repeat labs q6 months, sooner prn symptoms of thyroid dysfunction or > 10- 15# weight change, or as otherwise clinically indicated. Discussed options of ongoing rx, [facility] vs surgery with risks/benefits. He may want to consider surgery at some point. Atrial fibrillation Overview (12/20/2023): Dr. Blake Nicolas Lung cancer Overview (12/20/2023): 01/2017 - S/p chemo & pneumonectomy, Tonja Quiroga & Svetlana; recurrence 2021 - s/p XRT. Ocular myasthenia gravis Overview (12/20/2023): Dr. Bernardo Encounters Date Type Department Care Team Description 04/25/2025 Refill [facility] [address] [place] [address] Meghann Cavazos MD Medication Refill from Last 3 Months Family History Medical History Relation Comments Cancer Father parotid Heart disease Maternal Grandmother Thyroid disease Mother Lung cancer Paternal Grandfather Relation Status Comments Father Maternal Grandfather Maternal Grandmother Mother Alive Paternal Grandfather Paternal Grandmother Social History Tobacco Use Types Packs/Day Years Used Date Smoking Tobacco: Former Cigarettes 2 47 0 01/31/1970 - 01/31/2017 Smokeless Tobacco: Never Tobacco Cessation:Counseling Given: Not Answered Alcohol Use Standard Drinks/Week Comments Not Currently 4 (1 standard drink = 0.6 oz pur e alcohol) Education Answer Date Recorded Are you interested in more education? Not on liliana e 05/21/2023 Are you concerned about learning? Not on file 05/21/2023 No 05/21/2023 No 05/21/2023 Digital Access Answer Date Recorded No 05/21/2023 No 05/21/2023 Reliable internet access at home? Not on file 05/21/2023 Device with a working camera? Not on file Sex and Gender Information Value Date Recorded Sex Assigned at Not on file Legal Sex Male 11:20 AM EDT Gender Identity Not on file Sexual Orientation Not on file Last Filed Vital Signs Vital Sign Reading Time Taken Comments Blood Pressure 122/82 12/24/2024 8:32 AM EDT Pulse 76 12/24/2024 8:32 AM EDT Temperature - - Respiratory Rate - - Oxygen Saturation 99% 12/24/2024 8:32 AM EDT Inhaled Oxygen Concentration - - Weight 64.7 kg (142 lb 9.6 oz) 12/24/2024 8:32 A M EDT Height 182.9 cm (6' 0.01 ) 12/24/2024 8:32 AM ED T Body Mass Index 19.34 12/24/2024 8:32 AM EDT Plan of Treatment Upcoming Encounters Date Type Department Care Team (Late st Contact Info) Description 12/24/2025 8:20 AM EDT Office Visit [facility] [address] [place] [address] [place] [address] Meghann Cavazos MD [address] [place] [address] [email or web address] Maintenance Due Date Last Done Comments Adult Td,Tdap Booster 1960 DEPRESSION SCREENING 1974 HEPATITIS C SCREENING 1980 HIV ONE-TIME SCREENING (18-65 YEARS) 1980 PNEUMOCOCCAL VACCINES (50+ years) (1 of 2 - PCV) 1981 ZOSTER VACCINES (1 of 2) 1981 COLOGUARD 2007 COLONOSCOPY 2007 COLORECTAL CANCER SCREENING 2007 FIT TEST 2007 FOBT 2007 SIGMOIDOSCOPY 2007 VIRTUAL COLONOSCOPY 2007 RSV VACCINE (1 - Risk 60-74 years 1-dose series) 2022 COVID-19 VACCINE ( - 2023- season) 2024 TSH LEVEL 12/18/2025 12/18/2024, 1001/2024, 12/20/2023, Additional history exists LIPID PANEL 05/09/2026 05/09/2021 HEPATITIS A VACCINES Aged Out No long er eligible based on patient's age to complete this topic HIB VACCINES Aged Out No longer eligi ble based on patient's age to complete this topic MENINGOCOCCAL VACCINES (ACWY) Aged Out No longer eligible based on patient's age to complete this topic MENINGOCOCCAL VACCINES (B) Aged Out N o longer eligible based on patient's age to complete this topic Medical Devices Not on file Procedures Procedure Name Priority Date/Time Associated Diagnosis Comments TSH Routine 12/18/2024 12:51 PM EDT Hyperthyroidism from Last 3 Months or Most Recently Relevant to Health Maintenance Results * TSH (12/18/2024 12:51 PM EDT) Blood Meghann Cavazos MD LAB BLOOD ORDERABLES F inal Result [facility] [address] [place] [address] from Last 3 Months or Most Recently Relevant to Health Maintenance Insurance [facility] Care Teams Radio Antenna Installer Relationship Specialty Start Date End Date Braden Bang MD [address] [place] [address] [place] [address] PCP - General Internal Medicine 05/21/23 Blake Nicolas MD [address] [place] [address] [address] [place] [address] Cardiology 12/20/23 Kodak Gunn MD [address] [place] [address] [place] [address] Medical Oncology 12/20/23 Gabriela Bernardo MD [address] [place] [address] [place] [address] Neurology 12/20/23 Additional Source Comments The information contained in this document represents components of the legal health record. It is not the complete legal health record.[facility]
--- OUTSIDE RECORDS SUMMARY | 2025-05-04 08:27 | XMS_ITS | Clinical Summary ---
Author Organization [address] [place] [address] [place] [id number] Phone Care Team Providers Care Woven Paper Hat Mender Name Role Phone Braden Bang MD Primary Care Provider [phone] Allergies Active Allergy Reactions Criticality Noted Date Comments Chocolate Hazelnut Flavor 05/09/2021 Medications finasteride (PROSCAR) 5 mg tablet Take 5 mg by mouth daily. Active levothyroxine (SYNTHROID, LEVOTHROID) 88 mcg tablet Take 88 mcg by mouth daily. Active methIMAzole (TAPAZOLE) 5 mg tablet Take 1 Tablet by mouth daily. Active metoprolol succinate (TOPROL-XL) 25 mg 24 hr tablet Take 1 Tablet by mouth daily for 360 days. 07/27/20 23 Active predniSONE (DELTASONE) 1 mg tablet Take 1 Tablet by mouth daily. 08/01/20 23 Active pyRIDostigmine (MESTINON) 60 mg tablet Take 60 mg by mouth 3 times daily. Active tamsulosin (FLOMAX) 0.4 mg 24 hr capsule Take 1 tablet by mouth daily. Active Ventolin HFA 90 mcg/actuation inhalerIndicati ons:Chronic obstructive pulmonary disease, unspecified (CMS/HCC V24, CMS/HCC V28) INHALE 2 PUFFS INTO THE LUNGS EVERY 4 HOURS NEEDED FOR COUGH, WHEEZING OR SHORTNESS OF BREATH. 18 each 5 09/02/20 24 Active sacubitriL-vals braydon (Entresto) 24-26 mg per tablet Take 1 tablet by mouth 2 (two) times a day. 180 tablet 1 11/20/19 25 Active glycopyrrolate- formoterol (Bevespi Aerosphere) 9-4.8 mcg HFA aerosol inhaler inhalerIndicati ons:Chronic obstructive pulmonary disease, unspecified COPD type ([facility] V24, [facility] V28) Inhale 2 puffs by mouth 2 (two) times a day. 1 each 2 04/24/20 25 025 Active umeclidinium-vi lanteroL (ANORO ELLIPTA) 62.5-25 mcg/actuation inhalerIndicati ons:Chronic obstructive pulmonary disease, unspecified ([facility] V24, [facility] V28) TAKE 1 PUFF BY MOUTH EVERY DAY 60 each 5 03/23/20 25 025 Discontinued Active Problems Problem Noted Date Diagnosed Date Atrial fibrillation ([facility] V24, [facility] V28) 0 10/24/2024 Overview (10/24/2024): Dr. Blake Nicolas Hyperthyroidism 10/24/2024 Overview (10/24/2024): Dx when on amiodarone. TSH receptor antibody +ve. MMI started 07/2017. Challenging to control, added levothyroxine 09/2018. CHF (congestive heart failure) ([facility] V24, [facility] V28) 11/19/2022 Assessment & Plan (08/20/2024 10:47 AM EST): Orders: ECG 12 lead Transthoracic echocardiogram (TTE) complete with PRN contrast, bubble, strain, and 3D order panel; Future Hyperthyroiditis 11/19/2022 Ocular myasthenia gravis ([facility] V24, [facility] V 28) 11/09/2022 Overview (10/24/2024): Dr. Bernardo Cardiomyopathy ([facility] V24, [facility] V28) 2020 Overview (07/11/2024): 40% by cath in 2016 Recovered to 45- 50% September 2020 Cardiac MRI 2017 mild nonischemic cardiomyopathy Cardiac catheterization 2017 nonobstructive coronary artery disease with mid circumflex 30% stenosis in other vessels Last Assessment & Plan: Patient's LVEF has made some recovery to 45-50%. He appears euvolemic on exam today. Continue his beta-thaddeus and Entresto. Update his echocardiogram at his convenience prior to his next visit. He does report episodes of fatigue and dizziness with periodic low blood pressure. He has not passed out. 24-hour dietary review shows very small water intake but very large coffee intake. He also does not eat until dinnertime. We discussed how making small changes to his daily food intake as well as drinking more water may help to mitigate some of his fatigue and dizzy symptoms. He has some shortness of breath that may be explained by his prior pneumonectomy and subsequent radiation therapy and even some dehydration/hypoglycemia from his eating patterns. However, we will follow his LVEF on updated echocardiogram to ensure that there is no cardiac explanation for his breathlessness. Assessment & Plan (08/20/2024 10:47 AM EST): Orders: Transthoracic echocardiogram (TTE) complete with PRN contrast, bubble, strain, and 3D order panel; Future Lipid panel with reflex to direct LDL; Future Lung cancer ([facility] V24, [facility] V28) Overview (10/24/2024): Right hilar mass with RUL pulmlonary nodule resulted in R pneumonectomy, 01/2017 - S/p chemo & pneumonectomy, Tonja Quiroga & Svetlana; recurrence 2021 - s/p XRT. NSVT (nonsustained ventricul ar tachycardia) ([facility] V24, [facility] V28) 10/08/2016 Overview (07/11/2024): Amiodarone discontinued Medtronic ILR Last Assessment & Plan: The patient's ILR has been explanted given that it reached SEBASTIEN. He does not have any palpitations despite PVCs noted on recent Holter monitor. He did not have any tachyarrhythmias on his ILR. He is tolerating his current beta-thaddeus dose. Continue the same. Encounters Date Type Department Care Team Description 04/23/2025 Telephone Pulmonol - [place] [address] [facility] [address] [place] [address] Teodora Solorzano NP Medication 03/09/2025 8:55 AM EDT Office Visit Pulmonolgy - [place] [address] [facility] [address] [place] [address] Teodora Solorzano NP Malignant neoplasm of right lung, unspecified part of lung ([facility] V24, [facility] V28) (Primary Dx); Chronic obstructive pulmonary disease, unspecified COPD type ([facility] V24, [facility] V28); Chronic congestive heart failure, unspecified heart failure type ([facility] V24, [facility] V28); Atrial fibrillation, unspecified type ([facility] V24, [facility] V28) 02/24/2025 Telephone [facility] Radiation Oncology [address] [place] [address] Sienna Garcia MA from Last 3 Months Immunizations Name Administration Dates Next Due Influenza Quadravalent, MDCK , 0.5ml, preservative free (Flucelvax) 6mo and older 08/01/2019 Influenza Quadrivalent, 0.5m l, preservative free (Fluarix; FluLaval; Fluzone) ages 6mo and older (Afluria) 3yo and older 07/31/2023 Influenza trivalent, 0.5mL, preservative free (Fluarix; FluLaval; Fluzone) ages 6mo and older (Afluria) 3 years and older 09/15/2024 Pneumococcal polysaccharide 23 valent (Pneumovax 23) 2yo and older 11/09/2022 RSV, bivalent, protein subun it RSVpreF, 0.5mL, Preservative Free (ABRYSVO) 60yo and older or 32 through 36 wks of 09/15/2024 Tdap Tetanus diptheria acell ular pertussis (Boostrix; Adacel) 7yo and older 12/10/2020,08/01/2019 Medical History Medical History Date Comments CHF (congestive heart failure) ([facility] V24, [facility] V28) VT (ventricular tachycardia) ([facility] V24, [facility] V28) Primary cardiomyopathy ([facility] V24, [facility] V28 ) Lung cancer ([facility] V24, [facility] V28) 2020 Heart disease 2017 Disease of thyroid gland 2017 Family History Medical History Relation Name Comments Cancer Father erasmo chaidez Cancer Paternal Grandfather lorraine chaidez Relation Name Status Comments Father erasmo chaidez Paternal Grandfather lorraine chaidez Social History Tobacco Use Types Packs/Day Years Used Date Smoking Tobacco: Former Cigarettes 2 15 Q uit: 2017 Passive Smoke Exposure: Never Smokeless Tobacco: Never Alcohol Use Standard Drinks/Week Comments Yes 3 (1 standard drink = 0.6 oz pur e alcohol) occasional Sex and Gender Information Value Date Recorded Sex Assigned at Male 10/22/2024 4:02 PM EST Legal Sex Male 10:13 PM EST Gender Identity Male 10/22/2024 4:02 PM EST Sexual Orientation Straight 10/22/2024 4: 02 PM EST Obstetrics History Last Filed Vital Signs Vital Sign Reading Time Taken Comments Blood Pressure 120/60 03/09/2025 8:51 AM EDT Pulse 82 03/09/2025 8:51 AM EDT Temperature 36.3 C (97.4 F) 03/09/2025 8:51 AM EDT Respiratory Rate 14 03/09/2025 8:51 AM EDT Oxygen Saturation 99% 03/09/2025 8:51 AM EDT Inhaled Oxygen Concentration - - Weight 63.9 kg (140 lb 12.8 oz) 03/09/2025 8:51 AM EDT Height 182.9 cm (6') 03/09/2025 8:51 AM EDT Body Mass Index 19.1 03/09/2025 8:51 AM EDT Plan of Treatment Upcoming Encounters Date Type Department Care Team (Late st Contact Info) Description 05/04/2025 10:00 AM EDT Appointment [facility] CT Scan [address] [place] [phone] 05/08/2025 1:30 PM EDT Appointment [facility] Radiation Oncology [address] [place] [phone] Lissett Fraser NP [address] [place] [address] 03/09/2026 8:30 AM EDT Office Visit Pulmonolgy - [place] [address] [facility] [address] [place] [phone] Teodora Solorzano NP [address] [facility] [address] [place] [address] Health Maintenance Due Date Last Done Comments Zoster Vaccines (1 of 2) 1981 Colorectal Cancer Screening: Colonoscopy 09/09/2022 HIV Screening 09/09/2022 Hepatitis C Screening 09/09/2022 Lung Cancer Screening (Low Dose CT) 09/09/2022 Medicare Annual Wellness Visit 09/09/2022 Social Influencers of Health Screening 09/09/2022 Pneumococcal Vaccine: 50+ Years (2 of 2 - PCV) 11/09/2023 11/09/2022 Hypertension/CHF/CAD Annual BMP Blood Test 11/23/2023 05/09/2021 Depression Screening 10/08/2024 COVID-19 Vaccine (7 - Pfizer risk season) 2025 09/15/2024, 07/31/2023, 09/14/2022, Additional history exists Influenza Vaccine (#1) 2025 , 07/31/2023, 08/01/2019 Cholesterol Screening (Lipid Panel) 05/09/2026 05/09/2021 DTaP,Tdap,and Td Vaccines (3 - Td or Tdap) 12/10/2030 12/10/2020, 08/01/2019 RSV Immunization Adult Patients Completed 09/15/2024 HIB Vaccines Aged Out No longer eligi ble based on patient's age to complete this topic HPV Vaccines Aged Out No longer eligi ble based on patient's age to complete this topic Hepatitis A Vaccines Aged Out No long er eligible based on patient's age to complete this topic Hepatitis B Vaccines Aged Out No long er eligible based on patient's age to complete this topic IPV Vaccines Aged Out No longer eligi ble based on patient's age to complete this topic MMR Vaccines Aged Out No longer eligi ble based on patient's age to complete this topic Meningococcal ACWY Vaccine Aged Out N o longer eligible based on patient's age to complete this topic Meningococcal B Vaccine Aged Out No l onger eligible based on patient's age to complete this topic RSV Immunization Patients Under 20 months Aged Out No longer eligible based on patient's age to complete this topic Varicella Vaccines Aged Out No longer eligible based on patient's age to complete this topic Procedures Procedure Name Priority Date/Time Associated Diagnosis Comments ANNUAL BMP BLOOD TEST Routine 05/09/2021 LIPID PANEL Routine 05/09/2021 from Last 3 Months or Most Recently Relevant to Health Maintenance Results * Annual BMP Blood Test (05/09/2021) Annual BMP Blood Test abstracted Historical Provider HEALTH MAINTENANCE Final Result * (ABNORMAL) Lipid panel (05/09/2021) LDL/HDL Ratio 3 0 - 4 Triglycerides 141 0 - 150 mg/dL Cholesterol 225(A) 0 - 200 mg/dL HDL 88 >=40 mg/dL LDL Cholesterol 109(A) 0 - 100 mg/dL Blood Venous blood specimen / Unknown Historical Provider LAB BLOOD ORDERABLES Fatmata l Result from Last 3 Months or Most Recently Relevant to Health Maintenance Insurance [place]ICA[place] - [place] MEDICARE Advance Directives Documents on File Type Date Recorded 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 Health Care Decision (hx) 01/17/2017 AD GOLDBERG DIRECTIVE Health Care Decision (hx) 01/17/2017 AD GOLDBERG DIRECTIVE Health Care Decision (hx) 01/17/2017 AD GOLDBERG DIRECTIVE Health Care Decision (hx) 01/17/2017 AD GOLDBERG DIRECTIVE Health Care Decision (hx) 01/17/2017 AD GOLDBERG DIRECTIVE Health Care Decision (hx) 01/17/2017 AD GOLDBERG DIRECTIVE Health Care Decision (hx) 01/17/2017 AD GOLDBERG DIRECTIVE Health Care Decision (hx) 01/17/2017 AD GOLDBERG DIRECTIVE Health Care Decision (hx) 01/17/2017 AD GOLDBERG DIRECTIVE Health Care Decision (hx) 01/17/2017 AD GOLDBERG DIRECTIVE Health Care Decision (hx) 01/17/2017 AD GOLDBERG DIRECTIVE Health Care Decision (hx) 01/17/2017 AD GOLDBERG DIRECTIVE Health Care Decision (hx) 01/17/2017 AD GOLDBERG DIRECTIVE Health Care Decision (hx) 01/17/2017 AD GOLDBERG DIRECTIVE Health Care Decision (hx) 01/17/2017 AD GOLDBERG DIRECTIVE Health Care Decision (hx) 01/17/2017 AD GOLDBERG DIRECTIVE Health Care Decision (hx) 01/17/2017 AD GOLDBERG DIRECTIVE Health Care Decision (hx) 01/17/2017 AD GOLDBERG DIRECTIVE Health Care Decision (hx) 01/17/2017 AD GOLDBERG DIRECTIVE Health Care Decision (hx) 01/17/2017 AD GOLDBERG DIRECTIVE Health Care Decision (hx) 09/20/2016 AD GOLDBERG DIRECTIVE Health Care Decision (hx) 09/20/2016 AD GOLDBERG DIRECTIVE Health Care Decision (hx) 09/20/2016 AD GOLDBERG DIRECTIVE Health Care Decision (hx) 09/20/2016 AD GOLDBERG DIRECTIVE Health Care Decision (hx) 09/20/2016 AD GOLDBERG DIRECTIVE Health Care Decision (hx) 09/20/2016 AD GOLDBERG DIRECTIVE Health Care Decision (hx) 09/20/2016 AD GOLDBERG DIRECTIVE Health Care Decision (hx) 09/20/2016 AD GOLDBERG DIRECTIVE Health Care Decision (hx) 09/20/2016 AD GOLDBERG DIRECTIVE Health Care Decision (hx) 09/20/2016 AD GOLDBERG DIRECTIVE Health Care Decision (hx) 09/20/2016 AD GOLDBERG DIRECTIVE Health Care Decision (hx) 09/20/2016 AD GOLDBERG DIRECTIVE Health Care Decision (hx) 09/20/2016 AD GOLDBERG DIRECTIVE Health Care Decision (hx) 09/20/2016 AD GOLDBERG DIRECTIVE Health Care Decision (hx) 09/20/2016 AD GOLDBERG DIRECTIVE Health Care Decision (hx) 09/20/2016 AD GOLDBERG DIRECTIVE Health Care Decision (hx) 09/20/2016 AD GOLDBERG DIRECTIVE Health Care Decision (hx) 09/20/2016 AD GOLDBERG DIRECTIVE Health Care Decision (hx) 09/20/2016 AD GOLDBERG DIRECTIVE Health Care Decision (hx) 09/20/2016 AD GOLDBERG DIRECTIVE Care Teams Woven Paper Hat Mender Relationship Specialty Start Date End Date Braden Bang MD [address] [place] [address] Dr Daniel PR PCP - General Internal Medicine 09/03/20
== END 2025-05-04 08:43 | disposition home or self-care (01) ==
PROVIDERS: PCP Internal Medicine; Visit Provider Internal Medicine
DX: Z00.00 Encounter for general adult medical examination without abnormal findings (principal); C34.91 Malignant neoplasm of unspecified part of right bronchus or lung; G70.00 Myasthenia gravis without (acute) exacerbation; E05.00 Thyrotoxicosis with diffuse goiter without thyrotoxic crisis or storm; I25.10 Atherosclerotic heart disease of native coronary artery without angina pectoris

== ENCOUNTER → 2025-05-04 08:18 | Outpatient (BNVA) | payer MEDICAID, MEDICARE, SELFPAY | PROVIDERS: PCP Internal Medicine; Visit Provider Internal Medicine | DX: Z00.00 Encounter for general adult medical examination without abnormal findings (principal); G70.00 Myasthenia gravis without (acute) exacerbation; E05.00 Thyrotoxicosis with diffuse goiter without thyrotoxic crisis or storm; I25.10 Atherosclerotic heart disease of native coronary artery without angina pectoris; J44.9 Chronic obstructive pulmonary disease, unspecified; Z87.891 Personal history of nicotine dependence; Z90.2 Acquired absence of lung [part of]; Z85.118 Personal history of other malignant neoplasm of bronchus and lung | CPT/HCPCS: 99386 ==

== ENCOUNTER 2025-05-09 06:57 | Outpatient (REF) | payer MEDICARE, MEDICAID, SELFPAY ==
--- OUTSIDE RECORDS SUMMARY | 2024-09-10 09:30 | XMS_ITS ---
Author Organization Kodak Gunn III, MD Address [address] [facility] [address] Care Team Providers Care Microbiology Coordinator Name Role Phone Braden Bang MD Primary Care Provider Kodak Torres Unavailable [phone] Allergies Allergen (clinical drug ingredient) Drug/Non Drug [...] Orally ever y other day Active pyRIDostigmine [place] 60 MG 1 tablet Or ally every [...] Date Provider Diagnosis Kodak Gunn III, MD [address] [place] [address] [place] [address] 09/10/2024 Kodak Gunn Emphysema lung J43.9 ; [...] tablet Orally ever y other day pyRIDostigmine [place] 60 MG 1 tablet Orally every 4 [...] check-up Provider Name:Kodak Gunn, 09/10/2025 09:00:00 AM, [address] [place] [address] DR, [facility] [address], [place], [address], Progress Notes * RITU CHAIDEZ DDOB:1959 (64 yo M)Acc No.[id number]:09/10/2024 Progress Notes Patient: RITU EISENBERG Provider: Alexsandra Gunn MD :1960 A ge:64 Y S ex:Male Date:09/10/2024 Address:[address], [place] , [id number] Pcp:Braden Bang MD Subjective: * Chief Complaints: [...] T obacco Use: T obacco Use/Smoking P herb is a f ormer smoker D rugs/Alcohol: [...] has no grandchildren. He works in the [employer] industry but has no exposures. He is [...] 1 tablet Orally every other day pyRIDostigmine [place] 60 MG Tablet 1 tablet Orally every [...] tablet Orally every other day Taking pyRIDostigmine [place] 60 MG Tablet 1 tablet Orally every [...] Orally, every other day; C ontinue pyRIDostigmine [place] Tablet, 60 MG, 1 tablet, Orally, every [...] 11/11/2023 Generated for Timothy moreno/Faxing/eTransmitting on: 0 05/09/2025 07:00 AM EDT History and Physical Notes * HPI (History of Present Illness) Category Sub-Category Detail Notes COVID-19 Screening Questions Have you had any new onset fever, chills, cough, congestion, sore throat, shortness of breath, muscle aches?: No Have you been exposed to the virus withi n the last 10 days?: No Have you travelled internationally in [facility] last 10 days?: No Have [...]
--- OUTSIDE RECORDS SUMMARY | 2025-05-08 13:23 | XMS_ITS | Encounter Summary ---
Author Organization [facility] Address [address] [place] [address] Care Team Providers Care Swinging Cut Off Saw Operator Name Role Phone Braden Bang MD Primary Care Provider [phone] Reason for Referral * Imaging (Routine) - Authorized Specialty Diagnoses / Procedures Referred By Contac t Referred To Contact Radiology Diagnoses Malignant neoplasm of right lung, unspecified part of lung (CMS/HCC V24, CMS/HCC V28) Procedures CT Chest wo Contrast Lissett Fraser NP [address] [place] [address] Phone: tel: fax: [facility] CT Scan [address] [place] [address] Phone: tel: Referral ID Status Reason Start Date Expiration Date V isits Requested Visits Authorized [id number] Authorized 05/08/2025 05/08/2026 1 1 Encounter Details Date Type Department Care Team (Latest Contact Info) Description 05/08/2025 1:23 PM EDT Hospital Encounter [facility] Radiation Oncology [address] [place] [address] Lissett Fraser NP [address] [place] [address] Malignant neoplasm of right lung, unspecified part of lung (CMS/HCC V24, CMS/HCC V28) (Primary Dx) Social History Tobacco Use Types Packs/Day Years [...] Orientation Straight 10/22/2024 4: 02 PM EST documented as of this encounter Last Filed Vital Signs Vital Sign [place] Time Taken Comments Blood Pressure 100/63 05/08/2025 1:28 PM EDT Pulse 78 05/08/2025 1:28 PM EDT Temperature 36.3 C (97.3 F) 05/08/2025 1:28 PM EDT Respiratory Rate 18 05/08/2025 1:28 PM EDT Oxygen Saturation 100% 05/08/2025 1:28 PM EDT Inhaled Oxygen Concentration - - Weight 63.5 kg (140 lb) 05/08/2025 1:28 PM EDT Height 182.9 cm (6') 05/08/2025 1:28 PM EDT Body Mass Index 18.99 05/08/2025 1:28 PM EDT documented in this encounter Progress Notes * Lissett Fraser NP - 05/08/2025 1:30 PM EDT Images from the original note were not included. [address] [phone] RADIATION ONCOLOGY FOLLOW-UP Staff Physician: Lissett Fraser NP Requesting Physician: Adeel Caruso MD Date of Service: 05/08/2025 Accompanied by: self Diagnosis: 1. 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 Prior treatment: HPI: Fransisco Zaragoza returns for follow-up evaluation after a CT scan. He reports he has been feeling well. His shortness of breath is at his baseline. He denies a cough. His PET showed activity in the sigmoid colon - recommended to follow-up with primary care and get a colonoscopy. He has a referral for one and is getting it scheduled any day now. HPI ROS: Review of Systems Constitutional: Negative for chills, fatigue and fever. HENT: Negative for sore throat, trouble swallowing and voice change. Respiratory: Positive for shortness of breath (at baseline). Negative for chest tightness, cough, hemoptysis and wheezing. Shortness of breath on exertion at baseline and with the cold. Baseline cough - phlegm white to yellow. Gastrointestinal: Negative for blood in stool, constipation, diarrhea, nausea and vomiting. Neurological: Negative for headaches. Medications: Current Outpatient Medications: albuterol HFA (PROAIR HFA ; PROVENTIL HFA ; VENTOLIN HFA) 90 mcg/actuation inhaler, INHALE 2 PUFFS INTO THE LUNGS EVERY 4 HOURS NEEDED FOR COUGH, WHEEZING OR SHORTNESS OF BREATH., Disp: 18 each, Rfl: 5 finasteride (PROSCAR) 5 mg tablet, Take 5 mg by mouth daily., Disp: , Rfl: levothyroxine (SYNTHROID, LEVOTHROID) 88 mcg tablet, Take 88 mcg by mouth daily., Disp: , Rfl: methIMAzole (TAPAZOLE) 5 mg tablet, Take 1 Tablet by mouth daily., Disp: , Rfl: metoprolol succinate (TOPROL-XL) 25 mg 24 hr tablet, Take 1 Tablet by mouth daily for 360 days., Disp: , Rfl: predniSONE (DELTASONE) 1 mg tablet, Take 1 Tablet by mouth daily., Disp: , Rfl: pyRIDostigmine (MESTINON) 60 mg tablet, Take 60 mg by mouth 3 times daily., Disp: , Rfl: sacubitriL-valsartan (Entresto) 24-26 mg per tablet, Take 1 tablet by mouth 2 (two) times a day., Disp: 180 tablet, Rfl: 1 tamsulosin (FLOMAX) 0.4 mg 24 hr capsule, Take 1 tablet by mouth daily., Disp: , Rfl: tiotropium-olodateroL (Stiolto Respimat) 2.5-2.5 mcg/actuation mist inhaler, Inhale 2 puffs by mouth 1 (one) time each day., Disp: 4 g, Rfl: 2 Imported vital signs, weight Visit Vitals BP 100/63 (BP Location: Right arm, Patient Position: Sitting, BP Cuff Size: Adult) Pulse 78 Temp 36.3 ??C (97.3 ??F) (Temporal) Resp 18 Ht 1.829 m (72 ) Wt 63.5 kg (140 lb) SpO2 100% BMI 18.99 kg/m?? Smoking Status Former BSA 1.83 m?? No data recorded Physical Exam: Physical Exam Vitals reviewed. Constitutional: Appearance: Normal appearance. HENT: Head: Normocephalic. Cardiovascular: Rate and Rhythm: Normal rate and regular rhythm. Pulmonary: Effort: Pulmonary effort is normal. No respiratory distress. Breath sounds: Normal breath sounds. Comments: Right pneumonectomy. Skin: General: Skin is warm. Neurological: Mental Status: He is alert and oriented to person, place, and time. Mental status is at baseline. Psychiatric: Mood and Affect: Mood normal. Behavior: Behavior normal. Thought Content: Thought content normal. Judgment: Judgment normal. Impression: No current symptoms. Patient reporting feeling at baseline. Report any new or worsening symptoms. CT Chest 05/04/2025 shows as stable. Plan: Chest CT in 6 months with a follow-up after. Lissett Fraser NP 05/08/25 1:34 PM EDT documented in this encounter Plan of Treatment Upcoming Encounters Date Type Department Care Team (Late st Contact Info) Description 11/19/2025 10:00 AM EST Appointment [facility] Radiation Oncology [address] [place] [phone] Lissett Fraser NP [address] [place] [address] 03/09/2026 8:30 AM EDT Office Visit Pulmonolgy - [place] [address] [facility] [address] [place] [phone] Teodora Solorzano, EJSSE [address] [facility] [address] [place] [address] Scheduled Orders Name Type Priority Associated Diagnoses Orde r Schedule CT Chest wo Contrast Imaging Routine Malignant neoplasm of right lung, unspecified part of lung ([facility] V24, [facility] V28) Expected: 11/08/2025, Expires: 05/08/2026 documented as of this encounter Visit Diagnoses Diagnosis Malignant neoplasm of right lung, unspecified part of lung ([facility] V24, [facility] V28)- Primary documented in this encounter Care Teams Swinging Cut Off Saw Operator Relationship Specialty Start Date End Date Braden Bang MD [address] [place] [address] PCP - General Internal Medicine 09/03/20 documented as of this encounter
[2025-05-09 11:16] LABS: Appearance Urine Clear; Glucose Urine UA Negative (Negative); PH 6.5 (5.0-9.0); Specific Gravity - Urine 1.020 (1.005-1.025)
[2025-05-09 11:17] LABS: Hematocrit 49.1 % (42.0-52.0); Hemoglobin 16.2 g/dl (14.0-18.0); Mean Corpuscular HGB Conc 33.0 g/dl (31.0-36.0); Mean Corpuscular Hemoglobin 31.8 pg (27.0-33.0); Mean Corpuscular Volume 96.5 fL (80.0-98.0); NRBC Abs Auto 0.000 X10*3/uL (0.0-0.012); NRBC Pct Auto 0.0 /100WBC (0.0-0.2); Platelet Count 264 X10*3/uL (160-400); Red Blood Count 5.09 X10*6/uL (4.60-5.80); White Blood Count 8.2 X10*3/uL (4.8-10.8)
[2025-05-09 11:33] LABS: Alanine Aminotransferase 14 U/L (0-40); Albumin Level 4.0 g/dL (3.5-5.0); Alkaline Phosphatase 55 U/L (39-117); Anion Gap 10 (12-20); Aspartate Amino Transferase 20 U/L (5-37); Blood Urea Nitrogen 19 mg/dL (9-16); Calcium 8.8 mg/dL (8.4-10.2); Carbon Dioxide 30 mmol/L (22-29); Chloride 106 mmol/L (96-108); Cholesterol 206 mg/dL (<200); Estimated Glomerular Filt Rate > 60; HDL Cholesterol 64 mg/dL (>40); Potassium 4.4 mmol/L (3.3-5.1); Sodium 142 mmol/L (135-145); Total Protein 6.6 g/dL (6.5-8.0); Triglycerides 102 mg/dL (<150)
[2025-05-09 11:54] LABS: PSA,Total (Free>4and<10) 0.97 ng/mL (0.00-4.00); Thyroid Stimulating Hormone 4.14 uIU/mL (0.32-4.0)
== END 2025-05-09 06:58 | disposition home or self-care (01) ==
LOC: HO.HMGCLDS 06:57
PROVIDERS: PCP Internal Medicine; Visit Provider Internal Medicine
DX: C34.91 Malignant neoplasm of unspecified part of right bronchus or lung (principal)
CPT/HCPCS: 36415; 80048; 80061; 80076; 81003; 84153; 84443; 85027

== ENCOUNTER 2025-07-03 11:33 | Outpatient (AMB) | payer MEDICARE, MEDICAID, SELFPAY ==
--- OUTSIDE RECORDS SUMMARY | 2024-09-10 09:30 | XMS_ITS ---
Author Organization Kodak Gunn III, MD Address [address] [facility] [address] Care Team Providers Care Reduction Plant Supervisor Name Role Phone Braden Bang MD Primary Care Provider Dr. Kodak Torres III Unavailable Allergies Allergen (clinical drug ingredient) Drug/Non Drug Allergy documented on EMR Reaction Allergy Type Onset Date Status [place] (uncoded) Unknown Allergy Active REASON FOR VISIT Pneumonectomy right lunng adenocarcinoma 2016, Adenocarcinoma excised left upper lobe 2020, COPD, Emphysema, Hyperthyroidism, Benign prostatic hypertrophy, Myasthenia gravis Medications Medication SIG (Take, Route, Frequency, Duration) Notes Start Date End Date Status Ventolin HFA 108 (90 Base) MCG/ACT Inhalation Active Anoro Ellipta 62.5-25 MCG/ACT Inhalation Active Entresto 24-26 MG Oral Ac tive Finasteride 5 MG Oral Act page Levothyroxine Sodium 88 MCG 1 capsule in the morning on an empty stomach Orally Once a day Active Flomax 0.4 MG 1 capsule Orally Onc e a day 03/19/2017 Active methIMAzole 5 MG 3 tablet with food Orally Once a day Active predniSONE 2.5 MG 1 tablet Orally ever y other day Active pyRIDostigmine [place] 60 MG 1 tablet Or ally every 4 hrs Active Tamsulosin HCl 0.4 MG 1 capsule Orally O nce a day Active Metoprolol Succinate ER 25 MG TAKE 1 TABLET BY MOUTH EVERY DAY Orally Once a day Active Social History Tobacco Use: Social History Observation Description Date Details (start date - stop date) Former Smoker NA - NA Sex Assigned At : Social History Observation Description Sex Assigned At Male Tobacco Use/Smoking Question Answer Notes Patient is a former smoker Alcohol Screen Question Answer Notes How often did you have a dri nk containing alcohol in the past year? 2 to 4 times a month (2 points) How many drinks did you have on a typical day when you were drinking in the past year? 1 or 2 drinks (0 point) How often did you have 6 or more drinks on one occasion in the past year? Never (0 point) Vital Signs Temperature 97.2 degrees Fahrenheit 09/10/20 24 Blood pressure systolic 95 mm Hg 09/10/20 24 Blood pressure diastolic 64 mm Hg 024 Heart Rate 83 /min 09/10/2024 Height 72.5 in 09/10/2024 Weight 139 lbs 09/10/2024 BMI 18.59 kg/m2 09/10/2024 Encounters Encounter Location Date Provider Diagnosis Kodak Gunn III, MD [address] [place] [address] [place] [address] 09/10/2024 Kodak Gunn Emphysema lung J43.9 ; Non-small cell carcinoma of right lung C34.91 ; Underweight R63.6 ; COPD (chronic obstructive pulmonary disease) J44.9 ; Hyperthyroidism E05.90 ; Myasthenia gravis G70.00 and Benign prostatic hyperplasia with lower urinary tract symptoms N40.1 Assessments Encounter Date Diagnosis (ICD Code) Assessment Notes T reatment Notes Treatment Clinical Notes 09/10/2024 Emphysema lung (ICD-10 - J43.9) He remains short of breath with minimal exertion. There is no intercurrent lung disease. He is no longer smoking. He was encouraged to stay physically active. 09/10/2024 Non-small cell carcinoma of right lung (ICD-10 - C34.91) There was no sign of a new primary tumor or recurrence of the previous disease. There seems to be no long-term consequence of his treatment. 09/10/2024 Underweight (ICD-10 - R63.6) He has lost 9 more pounds body mass index is 18.6. The last time his thyroid functions were checked they were normal. He says his appetite is good. He was returned to primary care to evaluate the cause of this. Repeat blood work was thyroid function tests as indicated. 09/10/2024 COPD (chronic obstructive pulmonary disease) (ICD-10 - J44.9) His respiration today was unremarkable and he is no longer smoking. He is short of breath with stair climbing but conduction activities of daily life normally otherwise. 09/10/2024 Hyperthyroidism (ICD-10 - E05.90) He has been compliant with his medication. He has no symptoms of hyperthyroidism and seems to be stable. 09/10/2024 Myasthenia gravis (ICD-10 - G70.00) He was continued on current medication. 09/10/2024 Benign prostatic hyperplasia with lower urinary tract symptoms (ICD-10 - N40.1) He arises from sleep once or twice a night to urinate. He is taking tamsulosin. We discussed lifestyle modification as a way of controlling nocturnal urinating. Plan Of Treatment Medication Medication Name Sig Start Date Stop Date Notes Ventolin HFA 108 (90 Base) MCG/ACT Inhalation Anoro Ellipta 62.5-25 MCG/ACT Inhalation Entresto 24-26 MG Oral Finasteride 5 MG Oral Levothyroxine Sodium 88 MCG 1 capsule in the morning on an empty stomach Orally Once a day Flomax 0.4 MG 1 capsule Orally Once a day 03/19/2017 methIMAzole 5 MG 3 tablet with food O rally Once a day predniSONE 2.5 MG 1 tablet Orally ever y other day pyRIDostigmine [place] 60 MG 1 tablet Orally every 4 hrs Tamsulosin HCl 0.4 MG 1 capsule Orally Once a day Metoprolol Succinate ER 25 MG TAKE 1 TAB LET BY MOUTH EVERY DAY Orally Once a day Pending Test Test Name Order Date XR CHEST 2 VIEW PA & LAT 09/10/2024 Next Appt Details Follow Up: 1 Year, About noble ry year, Reason: OV, Regular check-up Provider Name:Kodak Gunn , 09/10/2025 09:00:00 AM, [address] [place] [address] [address] [facility], [place], [address], Progress Notes * RITU CHAIDEZ DDOB:1959 (64 yo M)Acc No.[id number]:09/10/2024 Progress Notes Patient: Rhonda RITU RAMIREZ Provider: Alexsandra Gunn MD :1960 A ge:64 Y S ex:Male Date:09/10/2024 Address:[facility] [address], [id number] Pcp:Braden Bang MD Subjective: * Chief Complaints: * P neumonectomy right lunng adenocarcinoma 2017Adenocarcinoma excised left upper lobe OPDEmphysemaHyperthyroidismBenign prostatic hypertrophyMyasthenia gravis * HPI: C OVID-19 Screening: Questions H ave you experienced fever, chills, cough, sore throat, shortness of breath, difficulty breathing, muscle aches, loss of taste or smell? N o H ave you been exposed to the virus within the last 10 days? N o H ave you travelled internationally in the last 10 days? N o H ave you been exposed to COVID-19 in the past? N o * : The patient, Ritu, is a 64-year-old male who had a total right pneumonectomy 17 years ago. He had a recurrence of cancer in his lung, which was treated with radiation around 2-3 years ago. He has been seeing a thoracic surgeon who believes the cancer was a new occurrence. The patient has been experiencing challenges with his breathing, which he manages with Anoro Ellipta and albuterol. He has lost about 4 lbs in weight but states that his weight has been stable for the last six months. He has been taking thyroid medicine since 2017 and also has ocular myasthenia gravis. He has emphysema and his heart has shifted due to his previous pneumonectomy. He stopped smoking in 2017. A chest x-ray done August 23, 2024 is unchanged from the previous one. * ROS: G eneral/Constitutional: pain o nly normal aches and pains. C hills d enies.?Fatigue a dmits. F ever d enies. E NT: Decreased hearing m ild. R espiratory: Cough n on-productive. C ardiovascular: Chest pain with exertion d enies. D yspnea on exertion?denies. S hortness of breath w ith exertion. G astrointestinal: Constipation o ccasional. D ecreased appetite d enies. D iarrhea d enies. H eartburn d enies. N ausea d enies. R ectal bleeding d enies. V omiting d enies. H ematology: bruising d enies. p etechiae d enies. S wollen glands n one have been noted. G enitourinary: Frequent urination o nce a night. M usculoskeletal: Muscle aches d enies. P ainful joints d enies. S ciatica d enies. W eakness d enies. S kin: Itching d enies. R benjie d enies. S kin lesion(s)?denies. N eurologic: Difficulty speaking d enies. D izziness d enies.?Headache d enies. L ow back pain d enies. P sychiatric: Depressed mood d enies. * Medical History: * Surgical History: S urgery left hand fingers due to a saw accident 2006CME, bronchoscopy 2016right pneumonectomy for non-small cell lung cancer January 2017needle biopsy 09/2021Total right pneumonectomy * Hospitalization/Major Diagno stic Procedure: N ot mentioned * Family History: F ather: 50 yrs, Tumor parotid gland, brain tumor. M other: alive 74 yrs, No illnesses. 2 son(s) - healthy. . His sons are 23 and 27 and both are healthy and well. He has no grandchildren brothers or sisters. His grandfather has a history of lung disease. Not mentioned. * Social History: T obacco Use: T obacco Use/Smoking P atsamy is a f ormer smoker D rugs/Alcohol: D rugs H ave you used drugs other than those for medical reasons in the past 12 months? No. Alcohol Screen H ow often did you have a drink containing alcohol in the past year? 2 to 4 times a month (2 points) H ow many drinks did you have on a typical day when you were drinking in the past year? 1 or 2 drinks (0 point) H ow often did you have 6 or more drinks on one occasion in the past year? N ever (0 point) H sharif is with 2 sons age 23 and 27 who are healthy and well. He has no grandchildren. He works in the [employer] industry but has no exposures. He is a smoker. Smoking: Stopped in 2017. * Medications: T akingMetoprolol Succinate ER 25 MG Tablet Extended Release 24 Hour TAKE 1 TABLET BY MOUTH EVERY DAY Orally Once a day Flomax 0.4 MG Capsule 1 capsule Orally Once a day methIMAzole 5 MG Tablet 3 tablet with food Orally Once a day predniSONE 2.5 MG Tablet 1 tablet Orally every other day pyRIDostigmine [place] 60 MG Tablet 1 tablet Orally every 4 hrs Tamsulosin HCl 0.4 MG Capsule 1 capsule Orally Once a day Levothyroxine Sodium 88 MCG Capsule 1 capsule in the morning on an empty stomach Orally Once a day Ventolin HFA 108 (90 Base) MCG/ACT Aerosol Solution Inhalation Anoro Ellipta 62.5-25 MCG/ACT Aerosol Powder Breath Activated Inhalation Entresto 24-26 MG Tablet Oral Finasteride 5 MG Tablet Oral Medication List reviewed and reconciled with the patientTaking Metoprolol Succinate ER 25 MG Tablet Extended Release 24 Hour TAKE 1 TABLET BY MOUTH EVERY DAY Orally Once a day Taking Flomax 0.4 MG Capsule 1 capsule Orally Once a day Taking methIMAzole 5 MG Tablet 3 tablet with food Orally Once a day Taking predniSONE 2.5 MG Tablet 1 tablet Orally every other day Taking pyRIDostigmine [place] 60 MG Tablet 1 tablet Orally every 4 hrs Taking Tamsulosin HCl 0.4 MG Capsule 1 capsule Orally Once a day Taking Levothyroxine Sodium 88 MCG Capsule 1 capsule in the morning on an empty stomach Orally Once a day Taking Ventolin HFA 108 (90 Base) MCG/ACT Aerosol Solution Inhalation Taking Anoro Ellipta 62.5-25 MCG/ACT Aerosol Powder Breath Activated Inhalation Taking Entresto 24-26 MG Tablet Oral Taking Finasteride 5 MG Tablet Oral Medication List reviewed and reconciled with the patient * Allergies: H sav[Allergies Verified] Objective: * Vitals: H t: 72.5, Wt: 139, BMI:18.59, BP: 95/64, HR: 83, Temp: 97.2, Wt-k.05. * Examination: G eneral Examination: GENERAL APPEARANCE: p leasant, well nourished, well developed, in no acute distress, calm and relaxed, underweight, man. HEAD: a traumatic, normocephalic. EYES: e rni, perrla, anicteric, conjugate. EARS: n ormal. NOSE: s eptum intact. ORAL CAVITY: n ormal, unremarkable. NECK/THYROID: n o jugular venous distention, no carotid bruit, thyroid normal. LYMPH NODES: n o enlarged lymph nodes,spleen normal. SKIN: n o suspicious lesions, anicteric. HEART: n o clicks, gallops, murmurs, or rubs, regular rhythm, S1, S2 normal, no s3, or vascular bruits. LUNGS: c lear to auscultation, No Breath sounds right lung.? BREASTS: no masses palpable bilaterally. ABDOMEN: b owel sounds normal, no ascites, no organomegaly, no mass, Underweight. RECTAL EXAM: n ot examined. MUSCULOSKELETAL: e xtremities unremarkable, no clubbing, cyanosis or edema. PERIPHERAL PULSES: n ormal. NEUROLOGIC: a lert and oriented, cranial nerves 2-12 grossly intact, deep tendon reflexes 2+ symmetrical, motor strength normal upper and lower extremities, sensory exam intact. PSYCH: a lert, oriented. Assessment: * Assessment: 1. N on-small cell carcinoma of right lung - C34.91 (Primary) N otes :There was no sign of a new primary tumor or recurrence of the previous disease. There seems to be no long-term consequence of his treatment. 2 . E mphysema lung - J43.9 N otes :He remains short of breath with minimal exertion. There is no intercurrent lung disease. He is no longer smoking. He was encouraged to stay physically active. 3 . U nderweight - R63.6 N otes :He has lost 9 more pounds body mass index is 18.6. The last time his thyroid functions were checked they were normal. He says his appetite is good. He was returned to primary care to evaluate the cause of this. Repeat blood work was thyroid function tests as indicated. 4 . C OPD (chronic obstructive pulmonary disease) - J44.9 N otes :His respiration today was unremarkable and he is no longer smoking. He is short of breath with stair climbing but conduction activities of daily life normally otherwise. 5 . H yperthyroidism - E05.90 N otes :He has been compliant with his medication. He has no symptoms of hyperthyroidism and seems to be stable. 6 . M yasthenia gravis - G70.00 N otes :He was continued on current medication. 7 . B enign prostatic hyperplasia with lower urinary tract symptoms - N40.1? Notes :He arises from sleep once or twice a night to urinate. He is taking tamsulosin. We discussed lifestyle modification as a way of controlling nocturnal urinating. Plan: * Treatment: 2. E mphysema lung Continue Metoprolol Succinate ER Tablet Extended Release 24 Hour, 25 MG, TAKE 1 TABLET BY MOUTH EVERY DAY, Orally, Once a day; C ontinue Flomax Capsule, 0.4 MG, 1 capsule, Orally, Once a day; Continue methIMAzole Tablet, 5 MG, 3 tablet with food, Orally, Once a day; C ontinue predniSONE Tablet, 2.5 MG, 1 tablet, Orally, every other day; C ontinue pyRIDostigmine [place] Tablet, 60 MG, 1 tablet, Orally, every 4 hrs; C ontinue Tamsulosin HCl Capsule, 0.4 MG, 1 capsule, Orally, Once a day; C ontinue Levothyroxine Sodium Capsule, 88 MCG, 1 capsule in the morning on an empty stomach, Orally, Once a day; C ontinue Ventolin HFA Aerosol Solution, 108 (90 Base) MCG/ACT, Inhalation; C ontinue Anoro Ellipta Aerosol Powder Breath Activated, 62.5-25 MCG/ACT, Inhalation; Continue Entresto Tablet, 24-26 MG, Oral; C ontinue Finasteride Tablet, 5 MG, Oral. ? I maging: XR CHEST 2 VIEW PA & LAT * Procedure Codes: * Preventive Medicine: Counseling: C are goal follow-up plan: Counseling for abnormal BMI given Y es Below Normal BMI Follow-up D ietary education for weight gain, Dietary management education, guidance, and counseling COPD Care Plan: P atient Lifestyle Goals R elieve symptoms and improve quality of life, Reduce number of ED and hospitalizations, Be able to be more active with friends and family. T reatment Goals E at a nutritious diet and increase water consumption to 6-8 glasses a day. B arriers n o barriers. S elf-Managment Goals E at a healthy diet. * Follow Up: 1 Year, About every year (Reason: OV, Regular check-up) * Images: * Sign off status: Completed true * Provider: Alexsandra Gunn MD Date: 11/11/2023 Generated for Timothy moreno/Derrick/eTransmitting on: 0 07/03/2025 01:29 PM EDT History and Physical Notes * HPI (History of Present Illness) Category Sub-Category Detail Notes COVID-19 Screening Questions Have you had any new onset fever, chills, cough, congestion, sore throat, shortness of breath, muscle aches?: No Have you been exposed to the virus withi n the last 10 days?: No Have you travelled internationally in [facility] last 10 days?: No Have you been exposed to COVID-19 in the past?: No Examination Category Sub-Category Detail Notes General Examination GENERAL APPEARANCE: pleasant , well nourished, well developed, in no acute distress, calm and relaxed, underweight, man HEAD: atraumatic, normocep halic EYES: eomi, perrla, anicte jose j, conjugate EARS: normal NOSE: septum intact NECK/THYROID: no jugular venous di stention, no carotid bruit, thyroid normal HEART: no clicks, gallops, murmurs, or rubs, regular rhythm, S1, S2 normal, no s3, or vascular bruits LUNGS: clear to auscultatio n, No Breath sounds right lung ABDOMEN: bowel sounds normal, no ascites, no organomegaly, no mass, Underweight NEUROLOGIC: alert and oriented, cranial nerves 2-12 grossly intact, deep tendon reflexes 2+ symmetrical, motor strength normal upper and lower extremities, sensory exam intact SKIN: no suspicious lesion s, anicteric PERIPHERAL PULSES: normal BREASTS: no masses palpable b ilaterally MUSCULOSKELETAL: extremities unremark able, no clubbing, cyanosis or edema LYMPH NODES: no enlarged lymph no agusto,spleen normal RECTAL EXAM: not examined PSYCH: alert, oriented ORAL CAVITY: normal, unremarkable
[2025-07-03 11:40] VITALS: BP 98/72; PULSE 87; TEMP 36.8; O2SAT 97; BMI 18.8
--- NOTE | 2025-07-03 11:40 | MHC.OFFWIV ---
Intake Vital Signs 07/03/25 11:40 Height 6 ft Weight 139 lb BMI 18.8 BP 98/72 Blood Pressure Location Rt brachial Position Sitting Pulse 87 Pulse Source Pulse Oximeter Temp 98.2 F Temp Source Oral Pulse Oximetry (%) 97 Oxygen Delivery Method Room Air Intake Visit Reasons: EP-lt side pain rib cage, dizziness, breathless Intake Note: pt presents with left anterior chest pain with sharp pain on inhalation starting yesterday, lightheaded and dizzy with mildly SOB- pt reports having one lung Patient Tobacco Use Status: Former Tobacco user Allergies hazelnut Allergy (Verified 05/04/25 08:43) Anaphylaxis Do you need a note to return to daycare/school/sports/work: No HPI EP-lt side pain rib cage, dizziness, breathless HPI Details 65 year old male patient presents to the [place] clinic today with report of left sided chest pain with inhalation, which started yesterday. Denies any inciting event or trauma prior to pain. Reports pain is present with inhalation only, and subsides with exhalation. Denies radiation of pain. Reports some lightheadedness at times. Denies any fevers, chills, or recent illness. Reports chronic post-nasal drip and cough, and currently nothing beyond his baseline per aptient. History of Adenocarcinoma and right pneumonectomy in 2017. History cardiac cath 2017. [facility] Medical History Personal history of nicotine dependence CAD (coronary artery disease) Non-small cell cancer of right lung (~2016) Heart disease Ocular myasthenia Graves disease Surgical History History of cardiac cath (~2016) History of hand surgery (~2006) History of lung surgery (~2016) Social History Patient Tobacco Use Status: Former Tobacco user e-Cigarette/Vaping Use: Never Used Substance Use Type: Marijuana Current occupational status: employed Current occupation: [employer] - Right hand dominant Review of Systems Const All systems reviewed & are unremarkable except as noted in HPI and below Physical Exam Vital Signs: Last Vital Signs Temp 98.2 F 07/03/25 11:40 Pulse 87 07/03/25 11:40 BP 98/72 07/03/25 11:40 Pulse Ox 97 07/03/25 11:40 Oxygen Delivery Method Room Air 07/03/25 11:40 BMI result Body Mass Index 18.8 Const General: cooperative and no acute distress Limitations: no limitations HEENT Head: Yes normal to inspection Ears: hearing grossly normal bilaterally General nose exam: Normal external nose present Face and sinus: Yes normal facial exam Mouth: Normal oral and palatal mucosa present Neck Neck: Yes no lymphadenopathy Chest Chest palpation & inspection: normal inspection of the chest and normal palpation of entire chest wall Resp Effort & Inspection: normal respiratory effort and Actively coughing Quality: dry Auscultation: clear to auscultation bilaterally (left) and breath sounds absent (s/p pneumonectomy) on the right Cardio Rate: regular rate Rhythm: regular rhythm Skin General skin exam: no rashes or lesions noted Extrem General: Yes capillary refill normal and Yes no clubbing, cyanosis or edema Psych Appearance: grossly normal Mental Status: mental status grossly normal Speech and movement: Normal speech and movement present Assessment & Plan Assessment & Plan (1) Pleuritic chest pain: Code(s): R07.81 - Pleurodynia Plan: Patient has pleuritic chest pain on the left with inspiration. LS are clear. Dry cough present was reported as patient's baseline. Hx lung cancer and is s/p right pneumonectomy. Patient reports his CT scans this summer were clear. CXR in the office today did not reveal any acute findings. EKG done in the office appears normal - 81bmp, sinus rhythm. Patient appears well. VS are otherwise stable. We had a discussion regarding recommendation for chest pain complaints to be evaluated in the ED. Patient understanding of this and is reassured with EKG and CXR. He reports that if he develops any worsening pain or associated symptoms, he plans to go to the emergency department for evaluation. All questions were answered. Patient stable upon discharge. Orders: Orders XR chest 2V Today R07.81 - Pleurodynia Coding Level of Care Code Est Pt Level 4 (01069) Diagnoses Pleuritic chest pain R07.81
--- OUTSIDE RECORDS SUMMARY | 2025-07-03 13:30 | XMS_ITS | Clinical Summary ---
Author Organization [address] [place] [address] [place] [phone] Phone Care Team Providers Care Branch Operation Evaluation Manager Name Role Phone Braden Bang MD Primary Care Provider [phone] Allergies Active Allergy Reactions Criticality Noted Date [...] Tablet by mouth daily for 360 days. 3 Active predniSONE (DELTASONE) 1 mg tablet Take 1 Tablet by mouth daily. 3 Active pyRIDostigmine (MESTINON) 60 mg tablet Take 60 mg by mouth 3 times daily. Active tamsulosin (FLOMAX) 0.4 mg 24 hr capsule Take 1 tablet by mouth daily. Active sacubitriL-valsa rtan (Entresto) 24-26 mg per tablet Take 1 tablet by mouth 2 (two) times a day. 180 tablet 1 5 Active albuterol HFA (PROAIR HFA ; PROVENTIL HFA ; VENTOLIN HFA) 90 mcg/actuation inhalerIndicatio ns:Chronic obstructive pulmonary disease, unspecified (CMS/HCC V24, CMS/HCC V28) INHALE 2 PUFFS INTO THE LUNGS EVERY 4 HOURS NEEDED FOR COUGH, WHEEZING OR SHORTNESS OF BREATH. 18 each 5 5 Active Anoro Ellipta 62.5-25 mcg/actuation inhalerIndicatio ns:Chronic obstructive pulmonary disease, unspecified COPD type ([facility] V24, [facility] V28) Inhale 1 puff by mouth 1 (one) time each day. 3 each 3 5 05/19/20 26 Active Active Problems Problem Noted Date Diagnosed Date Atrial fibrillation ([facility] V24, [facility] V28) 0 10/24/2024 Overview (10/24/2024): Dr. Blake Nicolas Hyperthyroidism 10/24/2024 Overview (10/24/2024): Dx when on amiodarone. TSH receptor antibody +ve. MMI started 07/2017. Challenging to control, added levothyroxine 09/2018. CHF (congestive heart failure) ([facility] V24, [facility] V28) 11/19/2022 Assessment & Plan (08/20/2024 10:47 AM EST): Orders: ECG 12 lead Transthoracic echocardiogram (TTE) complete with PRN contrast, bubble, strain, and 3D order panel; Future Hyperthyroiditis 11/19/2022 Ocular myasthenia gravis ([facility] V24, [facility] V 28) 11/09/2022 Overview (10/24/2024): Dr. Bernardo Cardiomyopathy ([facility] V24, [facility] V28) 2020 Overview (07/11/2024): 40% by cath in 2017 Recovered to 45- 50% September 2020 Cardiac [...] reflex to direct LDL; Future Lung cancer ([facility] V24, [facility] V28) Overview (10/24/2024): Right hilar mass with RUL pulmlonary nodule resulted in R pneumonectomy, 01/2017 - S/p chemo & pneumonectomy, Tonja Quiroga & Svetlana; recurrence 2021 - s/p XRT. NSVT (nonsustained ventricul ar tachycardia) ([facility] V24, [facility] V28) 10/08/2016 Overview (07/11/2024): Amiodarone discontinued Medtronic ILR Last Assessment & Plan: The patient's ILR has been explanted given that it reached SEBASTIEN. He does not have any palpitations despite PVCs noted on recent Holter monitor. He did not have any tachyarrhythmias on his ILR. He is tolerating his current beta-thaddeus dose. Continue the same. Encounters Date Type Department Care Team Description 05/08/2025 1:23 PM EDT - 05/08/2025 11:59 PM EDT Hospital Encounter [facility] Radiation Oncology [address] [place] [address] Lissett Fraser, JESSE Malignant neoplasm of right lung, unspecified part of lung ([facility] V24, [facility] V28) (Primary Dx) Discharge Disposition: Home or Self Care 05/04/2025 9:18 AM EDT - 05/04/2025 11:59 PM EDT Hospital Encounter [facility] CT Scan [address] [place] [address] Malignant neoplasm of lower lobe of left lung ([facility] V24, [facility] V28) Discharge Disposition: Home or Self Care 04/23/2025 Telephone Pulmonology - [place] [address] [place] [address] Teodora Solorzano, JESSE from Last 3 Months Immunizations Name Administration [...] History Date Comments CHF (congestive heart failure) (CMS/HCC V24, CMS /HCC V28) VT (ventricular tachycardia) (CMS/HCC V24, CMS/H CC V28) Primary cardiomyopathy (CMS/HCC V24, CMS/HCC V28 ) Lung cancer (CMS/HCC V24, CMS/HCC V28) 2020 Heart disease 2017 Disease of [...] Mass Index 18.99 05/08/2025 1:28 PM EDT Plan of Treatment Upcoming Encounters Date Type Department Care Team (Late st Contact Info) Description 11/19/2025 10:00 AM EST Appointment [facility] Radiation Oncology [address] [place] [phone] Lissett Fraser NP [address] [place] [address] 03/09/2026 8:30 AM EDT Office Visit Pulmonology [facility] [address] [place] [phone] Teodora Solorzano NP [address] [place] [address] Health Maintenance Due Date Last Done Comments [...] Procedure Name Priority Date/Time Associated Diagnosis Comments CT CHEST WO CONTRAST Routine 05/04/2025 9:39 AM EDT Malignant neoplasm of lower lobe of left lung (CMS/HCC V24, CMS/HCC V28) ANNUAL BMP BLOOD TEST Routine 05/09/2021 LIPID PANEL Routine 05/09/2021 from Last 3 Months or Most Recently Relevant to Health Maintenance Results * CT Chest wo Contrast (05/04/2025 9:39 AM EDT) Anatomical Region Laterality Modality Body Computed Tomogra phy 05/06/2025 1:30 PM EDT Impressions 05/06/2025 1:44 PM EDT Impression: 1. Complete resolution of the juxtapleural left lower lobe nodule being followed, consistent with a benign process. 2. Stable 5 x 8 mm nodule in the superior segment of the left lower lobe, presumably the treated malignancy. 3. Stable right pneumonectomy sequela. 4. No developing thoracic lymphadenopathy. Octane Lendingrad OSCAR ([id number]) -------- FINAL REPORT -------- Dictated By: Christina Yepez Dictated Date: 05/06/2025 13:30 ET Assigned Physician: Christina Yepez Reviewed and Electronically Signed By: Christina Yepez Signed Date: 05/06/2025 13:44 ET Workstation ID: [id number] Transcribed By: Self Edit Transcribed Date: 05/06/2025 13:30 ET Narrative 05/06/2025 1:44 PM EDT History: Follow-up pulmonary nodule. Personal history of bilateral lung carcinoma, status post post right pneumonectomy in 2017 and SBRT to left lower lobe nodule in 2021. Comparison: 10/22/24, PET/CT 11/06/24 Technique: Helical volumetric imaging of the thorax was performed without IV contrast. DLP: 210.49 mGy/cm Fujian Sunner Developmenter Iterative reconstruction technique Findings: The left lower lobe juxtapleural nodule being followed has completely resolved, consistent with a benign process. Right pneumonectomy sequela are again noted, with stable volume loss and partially calcified fibrothorax. There is patchy centrilobular emphysema within the remaining left lung. The trachea and remaining central bronchial tree are patent. Scattered minimal foci of peripheral mucous plugging are noted. A 5 x 8 mm solid, noncalcified nodule in the superior segment of the left lower lobe (image 129 series 3) is stable from the most recent study and has decreased in size since 2021 (10 x 7 mm at that time), presumably the treated malignancy. No suspicious developing nodule is seen. No developing pleural or pericardial effusions are seen. The heart remains normal in size. No developing thoracic lymphadenopathy is seen. A small portion of the upper abdomen included on the lowest images through the thorax is remarkable for stable scattered circumscribed round hypoattenuating hepatic lesions, most likely cysts, the largest approximately 2.3 cm in diameter. No suspicious osseous destructive lesion is seen. Procedure Note Christina Yepez MD - 05/06/2025 History: Follow-up pulmonary nodule. Personal history of bilateral lungcarcinoma, status post post right pneumonectomy in 2017 and SBRT to leftlower lobe nodule in 2021. Comparison: 10/22/24, PET/CT 11/06/24 Technique: Helical volumetric imaging of the thorax was performed withoutIV contrast. DLP: 210.49 mGy/cm Ark Iterative reconstruction technique Findings: The left lower lobe juxtapleural nodule being followed has completelyresolved, consistent with a benign process. Right pneumonectomy sequela are again noted, with stable volume loss andpartially calcified fibrothorax. There is patchy centrilobular emphysemawithin the remaining left lung. The trachea and remaining centralbronchial tree are patent. Scattered minimal foci of peripheral mucousplugging are noted. A 5 x 8 mm solid, noncalcified nodule in the superior segment of the leftlower lobe (image 129 series 3) is stable from the most recent study andhas decreased in size since 2021 (10 x 7 mm at that time), presumably thetreated malignancy. No suspicious developing nodule is seen. No developing pleural or pericardial effusions are seen. The heart remains normal in size. No developing thoracic lymphadenopathyis seen. A small portion of the upper abdomen included on the lowest images throughthe thorax is remarkable for stable scattered circumscribed roundhypoattenuating hepatic lesions, most likely cysts, the largestapproximately 2.3 cm in diameter. No suspicious osseous destructive lesion is seen. IMPRESSION: Impression: 1. Complete resolution of the juxtapleural left lower lobe nodule beingfollowed, consistent with a benign process. 2. Stable 5 x 8 mm nodule in the superior segment of the left lower lobe,presumably the treated malignancy. 3. Stable right pneumonectomy sequela. 4. No developing thoracic lymphadenopathy. 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
--- OUTSIDE RECORDS SUMMARY | 2025-07-03 13:30 | XMS_ITS | Patient Health Record ---
Author Organization Kodak Gunn III, MD Address [address] [place] [address] Care Team Providers Care Engineering Leader Name Role Phone Braden Bang MD Primary Care Provider Dr. Kodak Torres III Unavailable Allergies Allergen (clinical drug ingredient) Drug/Non Drug Allergy documented on EMR Reaction Allergy Type Onset Date Status Hazlenuts (uncoded) Unknown Allergy Active Results Component Value Reference Range Notes XR chest 4 views Reviewed date:09/15/2024 05:36:27 AM Interpretation: Performing Lab: Notes/Report: [facility] [address] [place] [address] [place] [address] XRay Report Signed Patient: Ritu Chaidez MR#: [id number] : 1960 Acct:[id number] Age/Sex: 64 / M ADM Date: 09/02/24 [facility]: Kodak Gunn MD Ordering Physician: Kodak Gunn MD Date of Service: 09/02/24 Procedure(s): XR chest 4 views Accession Number(s): [id number] cc: Kodak Gunn MD; Braden Bang MD [...] in OV> 09/10/24837 DD/ 9 TD/TT: 09/02/24904 Mainframe Consultant: [facility] [address] [place] [address] [place] [address] XRay Report Signed Patient: Esa Chaidez MR#: [id number] : 1960 Acct:[id number] Age/Sex: 64 / M ADM Date: 09/02/24 Loc: [facility] Attending Dr: Kodak Gunn MD Ordering Physician: Kodak Gunn MD Date of Service: 09/02/24 Procedure(s): XR chest 4 views Accession Number(s): [id number] cc: Kodak Gunn MD; Braden Bang MD [...] by: Ba Fraser MD 09/10/2024 08:38 AM [facility] Dictated By: Ba Fraser MD Signed By: <Electro nically signed by Ba Fraser MD in OV> 09/10/24837 DD/ 9 TD/TT: 09/02/24904 Mainframe Consultant: Reason For Referral No Information Medications Medication [...] Orally ever y other day Active pyRIDostigmine [place] 60 MG 1 tablet Or ally every [...] Problem Status W/U Status Risk Notes Problem 7567966 Former smoker (Z87.891) Active confirmed He is highly motivated not to smoke. He has a plan for prevention of relapse in times of illness and distress. Problem 22270000 Weight loss (R63.4) Active confirmed He has gained back 3 pounds. We discussed diet nutrition at length. He will use supplements to maintain his weight. Problem 908259993 Underweight (R63.6) Active confirmed He has lost 9 more pounds body mass index is 18.6. The last time his thyroid functions were checked they were normal. He says his appetite is good. He was returned to primary care to evaluate the cause of this. Repeat blood work was thyroid function tests as indicated. Problem 47812038 COPD (chronic obstructive pulmonary disease) (J44.9) Active confirmed His respira tion today was unremarkable and he is no longer smoking. He is short of breath with stair climbing but conduction activities of daily life normally otherwise. Problem 94866605 Emphysema lung (J43.9) Active confirmed He remains shor t of breath with minimal exertion. There is no intercurrent lung disease. He is no longer smoking. He was encouraged to stay physically active. Problem 00077831 Hyperthyroidism (E05.90) Active confirmed He has been compliant with his medication. He has no symptoms of hyperthyroidism and seems to be stable. Problem 893579504 Non-small cell carcinoma of right lung (C34.91) Active confirmed There was no sign of a new primary tumor or recurrence of the previous disease. There seems to be no long-term consequence of his treatment. Problem 203277582 Benign prostatic hyperplasia with lower urinary tract symptoms (N40.1) Active confirmed He arises from sleep once or twice a night to urinate. He is taking tamsulosin. We discussed lifestyle modification as a way of controlling nocturnal urinating. Problem 35457066 Myasthenia gravi s (G70.00) Active confirmed He was continue d on current medication. Vital Signs Heart Rate 83 /min 09/10/2024 Temperature 97.2 degrees Fahrenheit 09/10/2024 Blood pressure diastolic 64 mm Hg 09/10/2024 Height 72.5 in 09/10/2024 Blood pressure systolic 95 mm Hg 09/10/2024 Weight 139 lbs 09/10/2024 BMI 18.59 kg/m2 09/10/2024 Encounters Encounter Location Date Provider Diagnosis Kodak Gunn III, MD [address] [place] [address] DR [place], [place] [address] 09/10/2024 Kodak Gunn Emphysema lung J43.9 ; [...] views 09/10/2023 Next Appt Details Provider Name:Kodak Gunn , 09/10/2025 09:00:00 AM, [address] [place] [address] [address], [place], [address], Insurance Providers Payer Name Payer Address Payer Phone Subscriber Number Group Number Insured Name Patient Relationship to Insured Coverage Start Date Coverage End Date [place] [address] [place] BALLESTEROS [id number] [phone] [id number] RITU CHAIDEZ Self - patient is the [...]
--- OUTSIDE RECORDS SUMMARY | 2025-07-03 13:30 | XMS_ITS | Clinical Summary ---
Author Organization [facility] Address [address] [place] [phone] Phone Care Team Providers Care Telephone Betting Clerk Name Role Phone Braden Bang MD Primary Care Provider Blake Nicolas MD Unavailable Kodak Gunn MD Unavailable [phone] Gabriela Bernardo MD Unavailable Allergies Active Allergy Reactions Criticality Noted Date Comments Hazelnut Anaphylaxis High 12/20/2023 Medications ANORO ELLIPTA 62.5-25 mcg/actuation diskus inhaler Inhale 1 puff into the lungs daily. 12/05/2023 Active tamsulosin (FLOMAX) 0.4 mg Cap Take 0.4 mg by mouth daily. 11/09/2023 Active SACUBITRIL-VALS CAMACHO 24-26 mg per tablet Take 1 tablet by mouth 2 (two) times a day. 10/15/2023 Active pyRIDostigmine (MESTINON) 60 mg tablet Take 60 mg by mouth 3 (three) times a day. 10/16/2023 Active predniSONE (DELTASONE) 1 MG tablet Take 1 mg by mouth daily. 10/24/2023 Active metoprolol succinate (TOPROL-XL) 25 MG 24 hr tablet Take 1 tablet by mouth every morning. 10/23/2023 Active finasteride (PROSCAR) 5 mg tablet Take 5 mg by mouth every morning. 11/16/2023 Active VENTOLIN HFA 90 mcg/actuation inhaler Inhale 2 puffs into the lungs every 4 (four) hours as needed. 12/05/2023 Active methIMAzole (TAPAZOLE) 5 MG tabletIndicatio ns:Hyperthyroid ism TAKE 1 TABLET (5 MG TOTAL) BY MOUTH DAILY. 90 tablet 04/27/2025 Active levothyroxine (SYNTHROID, LEVOTHROID) 88 MCG tabletIndicatio ns:Hyperthyroid ism TAKE 1 TABLET BY MOUTH EVERY DAY IN THE MORNING 90 tablet 05/22/2025 Active Active Problems Problem Noted Date Diagnosed [...] Encounters Date Type Department Care Team Description 07/03/2025 Orders Only [facility] [address] [place] [address] Meghann Cavazos MD Hyperthyroidism (Primary Dx) 07/03/2025 Telephone [facility] [address] [place] [address] Tori Cline [place] Labs (TSH) 05/21/2025 Refill [facility] [address] [place] [address] Meghann Cavazos MD Medication Refill 04/25/2025 Refill [facility] [address] [place] [address] Meghann Cavazos MD Medication Refill from Last [...] 8:20 AM EDT Office Visit [facility] [address] [place] [address] [place] [address] Meghann Cavazos MD [address] [place] [id number] [email or web address] Maintenance Due Date Last Done Comments [...] - Risk 60-74 years 1-dose series) 2022 INFLUENZA VACCINE (#1) 2025 COVID-19 VACCINE ( - season) 2025 TSH LEVEL 12/18/2025 12/18/2024, 1001/2024, 12/20/2023, Additional [...] MD LAB BLOOD ORDERABLES F inal Result [address] [address] from Last 3 Months or Most Recently Relevant to Health Maintenance Insurance [facility] [place] [id number] [facility] Care Teams Telephone Betting Clerk Relationship Specialty Start Date End Date Braden Bang MD [address] [place] [address] [place] [address] PCP - General Internal Medicine 05/21/23 Blake Nicolas MD [address] [place] [address] Cardiology 12/20/23 Kodak Gunn MD [address] [place] [address] [place] [address] Medical Oncology 12/20/23 Gabriela Bernardo MD [address] [place] [address] [place] [address] Neurology 12/20/23 Additional Source Comments The information contained in this document represents components of the legal health record. It is not the complete legal health record.[facility]
--- OUTSIDE RECORDS SUMMARY | 2025-07-03 13:30 | XMS_ITS | Encounter Summary ---
Author Organization [facility] Address [address] [place] [address] Phone Care Team Providers Care Paster Supervisor Name Role Phone Braden Bang MD Primary Care Provider Blake Nicolas MD Unavailable [phone] Kodak Gunn MD Unavailable [phone] Gabriela Bernardo MD Unavailable Encounter Details Date Type Department Care Team (Late st Contact Info) Description 07/03/2025 Orders Only [facility] [address] [place] [address] Meghann Cavazos MD [address] [place] [address] [phone] [email or web address] Hyperthyroidism (Primary Dx) Social History Tobacco Use Types Packs/Day Years Used Date Smoking Tobacco: Former Cigarettes 2 47 0 01/31/1970 - 01/31/2017 Smokeless Tobacco: Never Alcohol Use Standard Drinks/Week Comments Not Currently [...] on file Sexual Orientation Not on file documented as of this encounter Plan of Treatment Upcoming Encounters Date Type Department Care Team (Late st Contact Info) Description 12/24/2025 8:20 AM EDT Office Visit [facility] [address] [place] [address] [place] [address] Meghann Cavazos MD [address] [place] [phone] [email or web address] Scheduled Orders Name Type Priority Associated Diagnoses Orde r Schedule Free T4 Lab Routine Hyperthyroidism Expected: 09/02/2025 (Approximate), Expires: 07/03/2026 TSH Lab Routine Hyperthyroidism Expected: 09/02/2025 (Approximate), Expires: 07/03/2026 Free T3 Lab Routine Hyperthyroidism Expected: 09/02/2025 (Approximate), Expires: 07/03/2026 documented as of this encounter Visit Diagnoses Diagnosis Hyperthyroidism- Primary Thyrotoxicosis without mention of goiter or other cause, without mention of thyrotoxic crisis or storm documented in this encounter Care Teams Paster Supervisor Relationship Specialty Start Date End Date Braden Bang MD [address] [place] [address] [place] [address] PCP - General Internal Medicine 05/21/23 Blake Nicolas MD [address] [place] [address] Cardiology 12/20/23 Kodak Gunn MD [address] [place] [address] Dr [address] [place] [address] Medical Oncology 12/20/23 Gabriela Bernardo MD [address] [place] [address] [place] [address] (work) Neurology 12/20/23 documented as of this encounter Additional Source Comments The information contained in this document represents components of the legal health record. It is not the complete legal health record.[facility]
--- OUTSIDE RECORDS SUMMARY | 2025-07-03 13:30 | XMS_ITS | Encounter Summary ---
Author Organization [facility] Address [address] [place] [address] Phone Care Team Providers Care Senior Credit Analyst Name Role Phone Braden Bang MD Primary Care Provider Blake Nicolas MD Unavailable Kodak Gunn MD Unavailable [phone] Gabriela Bernardo MD Unavailable Reason for Visit * Reason Onset Date Comments Labs 07/03/2025 TSH Encounter Details Date Type Department Care Team (Late st Contact Info) Description 07/03/2025 Telephone [facility] [address] [place], [place] [phone] Tori Cline [place] [address] [place] [address] Labs (TSH) Social History Tobacco Use Types Packs/Day Years [...] on file documented as of this encounter Progress Notes * Simin Wagner RN - 07/03/2025 1:28 PM EDT I communicated this to patient. He verbalizes understanding. No questions. He does have quite a bitof the 88 mcg pills left so he will do the * Meghann Cavazos MD - 07/03/2025 12:51 PM EDT Pls contact pt, received recent labs, TSH is slightly high, indicating thyroid is a bit underactive. Let's up his levothyroxine to 100 mcg 1 tablet daily & repeat labs in 2 months. If has a lot of the 88 mcg can take an extra tablet 1 day/week - so 1 tablet six days/week, 2 tablets on the 7th day. Orders in, come in/send slip. Back to me for rx * Tori Cline MA - 07/03/2025 8:43 AM EDT Received pt most recent TSH report from PCP, scanned into media documented in this encounter Plan of Treatment Upcoming Encounters Date Type Department Care Team (Late st Contact Info) Description 12/24/2025 8:20 AM EDT Office Visit [facility] [address] [place] [address] [place] [address] Meghann Cavazos MD [address] [place] [address] documented as of this encounter Visit Diagnoses Not on filedocumented in this encounter Care Teams Senior Credit Analyst Relationship Specialty Start Date End Date Braden Bang MD [address] [place] [address] [place] [address] PCP - General Internal Medicine 05/21/23 Blake Nicolas MD [address] [place] [address] [address] [place] [address] Cardiology 12/20/23 Kodak Gunn MD [address] [place] [address] [place] [address] Medical Oncology 12/20/23 Gabriela Bernardo MD [address] [place] [address] [place] [address] Neurology 12/20/23 documented as of this encounter Additional Source Comments The information contained in this document represents components of the legal health record. It is not the complete legal health record.[facility]
== END 2025-07-03 12:44 | disposition home or self-care (01) ==
PROVIDERS: PCP Internal Medicine; Visit Provider Nurse Practitioner Family
DX: R07.81 Pleurodynia (principal)

== ENCOUNTER 2025-07-03 11:33 | Outpatient (REF) | payer MEDICARE, MEDICAID, SELFPAY ==
--- NOTE | ~2025-07-03 | XR_ITS ---
EXAMINATION: XR CHEST CLINICAL INFORMATION: R07.81 - Pleurodynia COMPARISON: 09/02/2024. TECHNIQUE: 2 views of the chest were obtained. FINDINGS: Complete opacity right hemithorax from right pneumonectomy. Mediastinal shift to the right, unchanged. The left lung is hyperexpanded compensatorily. The left lung is clear. There is no left effusion. There is no pneumothorax. Mediastinal structures largely obscured due to right shift. Aortic contour is normal. There is no focal osseous or soft tissue abnormality. XR/XR chest 2V IMPRESSION: 1. No acute findings. No significant interval change. 2. Right pneumonectomy with compensatory hyperaeration of the left lung. Electronically signed by: Ba Fraser MD 07/03/2025 12:43 PM EDT
== END 2025-07-03 11:34 | disposition home or self-care (01) ==
LOC: HO.HMGCX 11:33
PROVIDERS: PCP Internal Medicine; Visit Provider Nurse Practitioner Family
DX: R07.81 Pleurodynia (principal)
CPT/HCPCS: 71046; 93005; 99212

== ENCOUNTER → 2025-07-03 12:29 | Outpatient (BNV) | payer MEDICARE, MEDICAID, SELFPAY | PROVIDERS: PCP Internal Medicine; Visit Provider Radiology Diagnostic Radiology | DX: J98.4 Other disorders of lung (principal) | CPT/HCPCS: 71046 ==

== ENCOUNTER 2025-07-22 11:10 | Outpatient (AMB) | payer MEDICARE, MEDICAID, SELFPAY ==
[2025-07-22 11:35] VITALS: BP 86/60; PULSE 77; TEMP 37.1; O2SAT 96; BMI 19.0
--- NOTE | 2025-07-22 11:35 | AM.OFFWIN_ITS ---
Intake Vital Signs 07/22/25 11:35 Height 6 ft Weight 140 lb BMI 19.0 BP 86/60 L Blood Pressure Location Rt brachial Position Sitting Pulse 77 Pulse Source Pulse Oximeter Temp 98.7 F Temp Source Oral Pulse Oximetry (%) 96 Oxygen Delivery Method Room Air Intake Visit Reasons: ep chest cold Intake Note: pt presents with chest congestion with productive coughing and body weakness x5 days Patient Tobacco Use Status: Former Tobacco user Allergies hazelnut Allergy (Verified 07/22/25 11:36) Anaphylaxis Do you need a note to return to daycare/school/sports/work: No HPI HPI Comments History of Present Illness Details History - The patient is a 65-year-old male pres enting with symptoms of a chest cold. - The chest cold began on Sunday night, with symptoms worsening over the weekend and slightly improving over the last two days. - Symptoms include production of yellow mucus, shortness of breath, congestion, and a sore throat, but no ear pain or fever. - The patient has a history of Chronic O bstructive Pulmonary Disease (COPD) and uses albuterol and Anoro inhalers at home. - The patient smokes and has a history o f Myasthenia Gravis, for which he takes 1 mg of prednisone daily. - He has only one lung. - He denies fever, chills, CP, abd pain, or n/v/d. - He denies sick contacts or travel. Physical Exam General: Cooperative, healthy appearing, comfortable and no acute distress Orientation/consciousness: Patient oriented x3 Limitations: No limitations Head: Normal to inspection Ears: Hearing grossly normal bilaterally, external ears normal and TM's normal bilaterally Nose: Normal external nose present, normal nares present, and no nasal discharge present. Face and sinus: Sinuses nontender to palpation. Mouth: Normal oral and palatal mucosa present and moist mucous membranes noted. Throat: Tonsils normal. Uvula is midline. Posterior oropharynx with erythema and no exudates. Eyes: Appearance normal, both eyes and all related structures Neck: Normal visual inspection, full ROM. No lymphadenopathy noted. Respiratory: Diminished breath sounds on one side. Clear to auscultation bilaterally. Normal respiratory effort, able to speak in complete sentences. No respiratory distress, not tachypneic, no tripod positioning and no use of accessory muscles. Cardiovascular: Regular rate and rhythm. Normal S1 and S2 Skin: No rashes or lesions noted Patient was informed and verbally consented to the use of an ambient scribe for clinic note documentation during this visit [facility] Medical History Personal history of nicotine dependence CAD (coronary artery disease) Non-small cell cancer of right lung (~2016) Heart disease Ocular myasthenia Graves disease Surgical History History of cardiac cath (~2016) History of hand surgery (~2006) History of lung surgery (~2016) Social History Patient Tobacco Use Status: Former Tobacco user e-Cigarette/Vaping Use: Never Used Substance Use Type: Marijuana Current occupational status: employed Current occupation: [employer] - Right hand dominant Review of Systems Const All systems reviewed & are unremarkable except as noted in HPI and below Physical Exam Vital Signs: Last Vital Signs Temp 98.7 F 07/22/25 11:35 Pulse 77 07/22/25 11:35 BP 86/60 L 07/22/25 11:35 Pulse Ox 96 07/22/25 11:35 Oxygen Delivery Method Room Air 07/22/25 11:35 BMI result Body Mass Index 19.0 Assessment & Plan Assessment & Plan (1) URI with cough and congestion: Code(s): J06.9 - Acute upper respiratory infection, unspecified Plan Most likely URI vs viral illness vs covid vs flu vs RSV plan - A respiratory panel and chest x-ray were ordered to rule out pneumonia. - The patient was started on a Z-Arnulfo and cough medicine. - Prednisone was considered, but the patient is already on 1 mg daily for Myasthenia Gravis. - The patient continues to use albuterol and Anoro inhalers at home. - Antibiotics were prescribed to protect the lungs due to COPD. - will call with results of the CXR and resp panel - follow up with PCP Orders: Orders Resp Pathogen Panel - [facility] Today J06.9 - Acute upper respiratory infection, unspecified XR chest 2V Today R05.9 - Cough, unspecified Medications: New azithromycin For 250 mg dose pack: take 500 mg today (day 1), then 250 mg for 4 days (days 2-5) PO 6 tabs 0RF prednisone 40 mg (2 x 20 mg) PO DAILY 10 tabs 0RF 5 days benzonatate 100 mg PO bid-tid PRN 21 caps 0RF Cough 7 days Coding Level of Care Code Est Pt Level 4 (57897) Diagnoses URI with cough and congestion J06.9
== END 2025-07-22 12:31 | disposition home or self-care (01) ==
PROVIDERS: PCP Internal Medicine; Visit Provider Physician Assistant Medical
DX: J06.9 Acute upper respiratory infection, unspecified (principal)

== ENCOUNTER 2025-07-22 11:10 | Outpatient (REF) | payer MEDICARE, MEDICAID, SELFPAY ==
--- OUTSIDE RECORDS SUMMARY | 2024-09-10 09:30 | XMS_ITS ---
Author Organization Kodak Gunn III, MD Address [address] [place] [address] Care Team Providers Care Dietitian Consultant Name Role Phone Braden Bang MD Primary [...] Orally ever y other day Active pyRIDostigmine [place] 60 MG 1 tablet Or ally every [...] Date Provider Diagnosis Kodak Gunn III, MD [address] [place] [address] [place] [address] 09/10/2024 Kodak Gunn Emphysema lung J43.9 ; [...] tablet Orally ever y other day pyRIDostigmine [place] 60 MG 1 tablet Orally every 4 [...] Provider Name:Kodak Gunn , 09/10/2025 09:00:00 AM, [address] [place] [address] DR [facility] [address], [place], [address], Progress Notes * RITU CHAIDEZ DDOB:1959 (64 yo M)Acc No.[id number]:09/10/2024 Progress Notes Patient: Rhonda RITU RAMIREZ Provider: Alexsandra Gunn MD :1960 A ge:64 Y S ex:Male Date:09/10/2024 Address:[facility] [address] [id number] Pcp:Braden Bang MD Subjective: * Chief Complaints: [...] has no grandchildren. He works in the [employer] industry but has no exposures. He is [...] 1 tablet Orally every other day pyRIDostigmine [place] 60 MG Tablet 1 tablet Orally every [...] tablet Orally every other day Taking pyRIDostigmine [place] 60 MG Tablet 1 tablet Orally every [...] Orally, every other day; C ontinue pyRIDostigmine [place] Tablet, 60 MG, 1 tablet, Orally, every [...] Date: 11/11/2023 Generated for Timothy moreno/Derrick/eTransmitting on: 1 04:56 PM EDT History and Physical Notes * HPI (History of Present Illness) Category Sub-Category Detail Notes COVID-19 Screening Questions Have you had any new onset fever, chills, cough, congestion, sore throat, shortness of breath, muscle aches?: No Have you been exposed to the virus withi n the last 10 days?: No Have you travelled internationally in [facility] last 10 days?: No Have you [...]
--- OUTSIDE RECORDS SUMMARY | 2025-07-22 16:57 | XMS_ITS | Patient Health Record ---
Author Organization Kodak Gunn III, MD Address [address] [place] [address] Care Team Providers Care Hairspring Studder Name Role Phone Braden Bang MD Primary Care Provider Dr. Kodak Torres III Unavailable Allergies Allergen (clinical drug ingredient) Drug/Non Drug Allergy documented on EMR Reaction Allergy Type Onset Date Status Hazlenuts (uncoded) Unknown Allergy Active Results Component Value Reference Range Notes XR chest 4 views Reviewed date:09/15/2024 05:36:27 AM Interpretation: Performing Lab: Notes/Report: [facility] [address] [place] [address] [place] [address] XRay Report Signed Patient: Ritu Chaidez MR#: [id number] : 1960 Acct:[id number] Age/Sex: 64 / M ADM Date: 09/02/24 [facility] Dr: Kodak Gunn MD Ordering Physician: Kodak Gunn MD Date of Service: 09/02/24 Procedure(s): XR chest 4 views Accession Number(s): [id number] cc: Kodak Gunn MD; Braden Bang MD [...] in OV> 09/10/24837 DD/ 9 TD/TT: 09/02/24904 Regulatory Leader: [facility] [address] [place] [address] [place] [address] XRay Report Signed Patient: Esa Chaidez MR#: [id number] : 1960 Acct:[id number] Age/Sex: 64 / M ADM Date: 09/02/24 Loc: [facility] Attending Dr: Kodak Gunn MD Ordering Physician: Kodak Gunn MD Date of Service: 09/02/24 Procedure(s): XR chest 4 views Accession Number(s): [id number] cc: Kodak Gunn MD; Braden Bang MD [...] by: Ba Fraser MD 09/10/2024 08:38 AM [facility] Dictated By: Ba Fraser MD Signed By: <Electro nically signed by Ba Fraser MD in OV> 09/10/24837 DD/ 9 TD/TT: 09/02/24904 Regulatory Leader: Reason For Referral No Information Medications Medication [...] Orally ever y other day Active pyRIDostigmine [place] 60 MG 1 tablet Or ally every [...] Problem Status W/U Status Risk Notes Problem 8099047 Former smoker (Z87.891) Active confirmed He is highly motivated not to smoke. He has a plan for prevention of relapse in times of illness and distress. Problem 58372923 Weight loss (R63.4) Active confirmed He has gained back 3 pounds. We discussed diet nutrition at length. He will use supplements to maintain his weight. Problem 129843898 Underweight (R63.6) Active confirmed He has lost 9 more pounds body mass index is 18.6. The last time his thyroid functions were checked they were normal. He says his appetite is good. He was returned to primary care to evaluate the cause of this. Repeat blood work was thyroid function tests as indicated. Problem 36958958 COPD (chronic obstructive pulmonary disease) (J44.9) Active confirmed His respira tion today was unremarkable and he is no longer smoking. He is short of breath with stair climbing but conduction activities of daily life normally otherwise. Problem 46644657 Emphysema lung (J43.9) Active confirmed He remains shor t of breath with minimal exertion. There is no intercurrent lung disease. He is no longer smoking. He was encouraged to stay physically active. Problem 98681311 Hyperthyroidism (E05.90) Active confirmed He has been compliant with his medication. He has no symptoms of hyperthyroidism and seems to be stable. Problem 558219077 Non-small cell carcinoma of right lung (C34.91) Active confirmed There was no sign of a new primary tumor or recurrence of the previous disease. There seems to be no long-term consequence of his treatment. Problem 464212809 Benign prostatic hyperplasia with lower urinary tract symptoms (N40.1) Active confirmed He arises from sleep once or twice a night to urinate. He is taking tamsulosin. We discussed lifestyle modification as a way of controlling nocturnal urinating. Problem 85716481 Myasthenia gravi s (G70.00) Active confirmed He was continue d on current medication. Vital Signs Heart Rate 83 /min 09/10/2024 Temperature 97.2 degrees Fahrenheit 09/10/2024 Blood pressure diastolic 64 mm Hg 09/10/2024 Height 72.5 in 09/10/2024 Blood pressure systolic 95 mm Hg 09/10/2024 Weight 139 lbs 09/10/2024 BMI 18.59 kg/m2 09/10/2024 Encounters Encounter Location Date Provider Diagnosis Kodak Gunn III, MD [address] [place] [address] DR [place], [place] [address] 09/10/2024 Kodak Gunn Emphysema lung J43.9 ; [...] Provider Name:Kodak Gunn , 09/10/2025 09:00:00 AM, [address] [place] [address] [address], [place], [address], Insurance Providers Payer Name Payer Address Payer Phone Subscriber Number Group Number Insured Name Patient Relationship to Insured Coverage Start Date Coverage End Date [place] [address] [place] BAL[place]STEROS [id number] [phone] [id number] RITU CHAIDEZ Self - patient is the [...]
--- OUTSIDE RECORDS SUMMARY | 2025-07-22 16:57 | XMS_ITS | Clinical Summary ---
Author Organization [address] [place] [address] [place] [phone] Phone Care Team Providers Care Capacity Planning Manager Name Role Phone Braden Bang MD Primary Care Provider [phone] Allergies Active Allergy Reactions Criticality Noted Date [...] ns:Chronic obstructive pulmonary disease, unspecified COPD type ([facility] V24, [facility] V28) Inhale 1 puff by mouth 1 (one) time each day. 3 each 3 5 05/19/20 26 Active Active Problems Problem Noted Date Diagnosed Date Atrial fibrillation ([facility] V24, [facility] V28) 0 10/24/2024 Overview (10/24/2024): Dr. Blake Nicolas Hyperthyroidism 10/24/2024 Overview (10/24/2024): Dx when on amiodarone. TSH receptor antibody +ve. MMI started 07/2017. Challenging to control, added levothyroxine 09/2018. CHF (congestive heart failure) ([facility] V24, [facility] V28) 11/19/2022 Assessment & Plan (08/20/2024 10:47 AM EST): Orders: ECG 12 lead Transthoracic echocardiogram (TTE) complete with PRN contrast, bubble, strain, and 3D order panel; Future Hyperthyroiditis 11/19/2022 Ocular myasthenia gravis ([facility] V24, [facility] V 28) 11/09/2022 Overview (10/24/2024): Dr. Bernardo Cardiomyopathy ([facility] V24, [facility] V28) 2020 Overview (07/11/2024): 40% by cath [...] reflex to direct LDL; Future Lung cancer ([facility] V24, [facility] V28) Overview (10/24/2024): Right hilar mass with RUL pulmlonary nodule resulted in R pneumonectomy, 01/2017 - S/p chemo & pneumonectomy, Tonja Quiroga & Svetlana; recurrence 2021 - s/p XRT. NSVT (nonsustained ventricul ar tachycardia) ([facility] V24, [facility] V28) 10/08/2016 Overview (07/11/2024): Amiodarone [...] - 05/08/2025 11:59 PM EDT Hospital Encounter [facility] [address] [place] [address] Lissett Fraser, JESSE Malignant neoplasm of right lung, unspecified part of lung ([facility] V24, [facility] V28) (Primary Dx) Discharge Disposition: Home or Self Care 05/04/2025 9:18 AM EDT - 05/04/2025 11:59 PM EDT Hospital Encounter [facility] CT Scan [address] [place] [address] Malignant neoplasm of lower lobe of left lung ([facility] V24, [facility] V28) Discharge Disposition: Home or Self Care 04/23/2025 Telephone Pulmonology - [place] [address] [facility] [address] [place] [address] Teodora Solorzano, JESSE from Last 3 Months Immunizations Immunization Administration Dates Next Due Influenza Quadravalent, MDCK [...] subun it RSVpreF, 0.5mL, Preservative Free (ABRYSVO) 50yo and older or 32 through 36 wks [...] Info) Description 11/19/2025 10:[address] [facility] [address] [place] [phone] Lissett Fraser NP [address] [place] [address] 03/09/2026 8:30 AM EDT Office Visit Pulmonology [facility] [address] [facility] [address] [place] [phone] Teodora Solorzano NP [address] [place] [address] Health Maintenance Due Date Last Done Comments Colorectal Cancer Screening: Colonoscopy 1960 Zoster Vaccines (1 of 2) 1981 HIV Screening 09/09/2022 Hepatitis C Screening 09/09/2022 [...] pneumonectomy sequela. 4. No developing thoracic lymphadenopathy. Simmrrad OSCAR ([id number]) -------- FINAL REPORT -------- Dictated By: Christina Yepez Dictated Date: 05/06/2025 13:30 ET Assigned Physician: Christina Yepez Reviewed and Electronically Signed By: Christina Yepez Signed Date: 05/06/2025 13:44 ET Workstation ID: [id number] Transcribed By: Self Edit Transcribed Date: 05/06/2025 13:30 ET Narrative 05/06/2025 1:44 PM EDT History: Follow-up pulmonary nodule. Personal history of bilateral lung carcinoma, status post post right pneumonectomy in 2017 and SBRT to left lower lobe nodule in 2021. Comparison: 10/22/24, PET/CT 11/06/24 Technique: Helical volumetric imaging of the thorax was performed without IV contrast. DLP: 210.49 mGy/cm [employer] Android POSer Iterative reconstruction technique Findings: The left lower [...] was performed withoutIV contrast. DLP: 210.49 mGy/cm [employer] Iterative reconstruction technique Findings: The left lower [...] 4. No developing thoracic lymphadenopathy. Telerad OSCAR ([id number]) -------- FINAL REPORT -------- Dictated By: Christina Yepez Dictated Date: 05/06/2025 13:30 ET Assigned Physician: Christina Yepez Reviewed and Electronically Signed By: Christina Yepez Signed Date: 05/06/2025 13:44 ET Workstation ID: [id number] Transcribed By: Self Edit Transcribed Date: 05/06/2025 13:30 ET Lissett Fraser [facility] [employer] [facility] IMG CT PROCEDURES Fin al Result * [...] Documents on File Type Date Recorded Patient Corporate Secretary Expl anation Health Care Decision (hx) 01/17/2017 AD GOLDBERG DIRECTIVE Health Care Decision (hx) 01/17/2017 AD GOLDBERG DIRECTIVE Health Care Decision (hx) 01/17/2017 AD GOLDBERG DIRECTIVE Health Care Decision (hx) 01/17/2017 AD GOLDBERG DIRECTIVE Health Care Decision (hx) 01/17/2017 AD GOLDBERG DIRECTIVE Health Care Decision (hx) 01/17/2017 AD GOLDBEGR DIRECTIVE Health Care Decision (hx) 01/17/2017 AD [...] (hx) 09/20/2016 AD GOLDBERG DIRECTIVE Care Teams Capacity Planning Manager Relationship Specialty Start Date End Date Braden Bang MD [address] [place] [address] Dr Fredy [place] PCP - General Internal Medicine 09/03/20
--- OUTSIDE RECORDS SUMMARY | 2025-07-22 16:57 | XMS_ITS | Clinical Summary ---
Author Organization [facility] Address [address] [place] [address] Phone Care Team Providers Care Jigger Crown Pouncing Machine Operator Name Role Phone Braden Bang MD Primary Care Provider Blake Nicolas MD Unavailable Kodak uGnn MD Unavailable [phone] Gabriela Bernardo MD Unavailable Allergies Active Allergy Reactions Criticality Noted Date Comments Hazelnut Anaphylaxis High 12/20/2023 Medications ANORO ELLIPTA 62.5-25 mcg/actuation diskus inhaler Inhale 1 puff into the lungs daily. 4 Active tamsulosin (FLOMAX) 0.4 mg Cap Take 0.4 mg by mouth daily. 4 Active SACUBITRIL-VALS CAMACHO 24-26 mg per tablet [...] 4 (four) hours as needed. 4 Active methIMAzole (TAPAZOLE) 5 MG tabletIndicatio ns:Hyperthyroid ism TAKE 1 TABLET (5 MG TOTAL) BY MOUTH DAILY. 90 tablet 5 Active levothyroxine (SYNTHROID, LEVOTHROID) 100 MCG tabletIndicatio ns:Hyperthyroid ism Take 1 tablet (100 mcg total) by mouth every morning. 90 tablet 1 5 Active levothyroxine (SYNTHROID, LEVOTHROID) 88 MCG tabletIndicatio ns:Hyperthyroid ism TAKE 1 TABLET BY MOUTH EVERY DAY IN THE MORNING 90 tablet 5 07/03/20 25 Discontinu ed(Dose adjustment ) Active Problems Problem Noted Date Diagnosed Date [...] Description 07/03/2025 Orders Only [facility] [address] [place] [id number] Meghann Cavazos MD Hyperthyroidism (Primary Dx) 07/03/2025 Orders Only [facility] [address] [place] [id number] Meghann Cavazos MD Hyperthyroidism (Primary Dx) 07/03/2025 Telephone [facility] [address] [place] [id number] Tori Cline MA Labs (TSH) 05/21/2025 Refill [facility] [address] [place] [id number] Meghann Cavazos MD Medication Refill 04/25/2025 Refill [facility] [address] [place] [id number] Meghann Cavazos MD Medication Refill from Last [...] 8:20 AM EDT Office Visit [facility] [address] [place] [address] [place] [address] Meghann Cavazos MD [address] [place] [id number] [email or web address] Health Maintenance Due Date Last Done Comments Adult Td,Tdap Booster 1962 DEPRESSION SCREENING 1974 HEPATITIS C SCREENING 1980 HIV ONE-TIME SCREENING (18-65 YEARS) 1980 PNEUMOCOCCAL VACCINES (50+ years) (1 of 2 - PCV) 1981 ZOSTER VACCINES (1 of 2) 1981 COLOGUARD 2007 COLONOSCOPY 2007 COLORECTAL CANCER SCREENING 2007 FIT TEST 2007 FOBT 2007 SIGMOIDOSCOPY 2007 VIRTUAL COLONOSCOPY 2007 RSV VACCINE (1 - Risk 50-74 years 1-dose series) 2012 INFLUENZA VACCINE (#1) 2025 COVID-19 VACCINE ( season) 2025 TSH LEVEL 12/18/2025 12/18/2024, 07/09, 12/20/2023, Additional history exists LIPID PANEL 05/09/2026 [...] MD LAB BLOOD ORDERABLES F inal Result [address] [id number] from Last 3 Months or Most Recently Relevant to Health Maintenance Insurance [facility] Care Teams Jigger Crown Pouncing Machine Operator Relationship Specialty Start Date End Date Braden Bang MD [address] [place] [address] [place] [id number] PCP - General Internal Medicine 05/21/23 Blake Nicolas MD [address] [place] [address] Cardiology 12/20/23 Kodak Gunn MD [address] [place] [address] Dr [address] [place] [id number] Medical Oncology 12/20/23 Gabriela Bernardo MD [address] [place] [address] [place] [id number] Neurology 12/20/23 Additional Source Comments The information contained in this document represents components of the legal health record. It is not the complete legal health record.[facility]
[2025-07-23 09:24] LABS: Chlamydia pneumoniae PCR Not Detected (Not Detect.); Coronavirus 229E PCR Not Detected (Not Detect.); Coronavirus HKU1 PCR Not Detected (Not Detect.); Coronavirus NL63 PCR Not Detected (Not Detect.); Coronavirus OC43 PCR Not Detected (Not Detect.); RSV PCR Not Detected (Not Detect.); Rhino/Enterovirus PCR Not Detected (Not Detect.)
[2025-07-23 09:36] LABS: Influenza A H1 PCR Not Detected (Not Detect.); Influenza A H1-2009 PCR Not Detected (Not Detect.); Influenza A H3 PCR Not Detected (Not Detect.); SARS-CoV-2 PCR Not Detected (Not Detect.)
== END 2025-07-22 11:11 | disposition home or self-care (01) ==
LOC: HO.LNP 11:10
PROVIDERS: PCP Internal Medicine; Visit Provider Physician Assistant Medical
DX: Z13.89 Encounter for screening for other disorder (principal)
CPT/HCPCS: 87633; 99212

== ENCOUNTER 2025-07-22 14:17 | Outpatient (REF) | payer MEDICARE, MEDICAID, SELFPAY ==
--- NOTE | ~2025-07-22 | XR_ITS ---
EXAMINATION: XR CHEST CLINICAL INFORMATION: R05.9 - Cough, unspecified COMPARISON: 07/03/2025, 09/02/2024. TECHNIQUE: 2 views of the chest were obtained. FINDINGS: Complete opacity right hemithorax from right pneumonectomy. Mediastinal shift to the right, unchanged. The left lung is hyperexpanded compensatorily. The left lung is clear. There has been development of a tiny left effusion. There is no pneumothorax. Mediastinal structures largely obscured due to right shift. Aortic contour is normal. There is no focal osseous or soft tissue abnormality. XR/XR chest 2V IMPRESSION: 1. Interval development of a tiny left effusion. The left lung remains clear otherwise. 2. Right pneumonectomy with compensatory hyperaeration of the left lung. Electronically signed by: Ba Fraser MD 07/22/2025 02:40 PM EDT
== END 2025-07-22 14:18 | disposition home or self-care (01) ==
LOC: HO.HMGCX 14:17
PROVIDERS: PCP Internal Medicine; Visit Provider Physician Assistant Medical
DX: J06.9 Acute upper respiratory infection, unspecified (principal); R05.9 Cough, unspecified
CPT/HCPCS: 71046; 87633; 99212

== ENCOUNTER → 2025-07-22 14:21 | Outpatient (BNV) | payer MEDICARE, MEDICAID, SELFPAY | PROVIDERS: PCP Internal Medicine; Visit Provider Radiology Diagnostic Radiology | DX: J90 Pleural effusion, not elsewhere classified (principal) | CPT/HCPCS: 71046 ==

== ENCOUNTER 2025-08-31 09:53 | Outpatient (REF) | payer MEDICARE, MEDICAID, SELFPAY ==
--- NOTE | ~2025-08-31 | XR_ITS ---
EXAMINATION: XR CHEST 2 VIEWS HISTORY: Emphysema, non small cell carcinoma of right lung. COMPARISON: Comparison is made with the prior examination dated 07/22/2025. FINDINGS: PA and lateral views of the chest are submitted. The patient is again noted to be status post right pneumonectomy. There is shift of the cardiomediastinal silhouette to the right. The left lung is clear. Again seen is a tiny left pleural effusion. There is no pneumothorax or pulmonary vascular congestion. Heart size is difficult to evaluate due to shift of the heart to the right. The bones are intact. XR/XR chest 2V IMPRESSION: Status post right pneumonectomy. Tiny left pleural effusion without change. Electronically signed by: Kodak Roland MD 08/31/2025 11:06 AM TATIANA
--- OUTSIDE RECORDS SUMMARY | 2025-08-31 11:46 | XMS_ITS | Clinical Summary ---
Author Organization [address] [place] [address] [place] [phone] Phone Care Team Providers Care Administrative Office Manager Name Role Phone Braden Bang MD Primary Care Provider [phone] Allergies Active Allergy Reactions Criticality Noted Date Comments Hazelnut Rash 08/12/2025 Medications finasteride (PROSCAR) 5 mg tablet Take 5 mg by mouth daily. Active methIMAzole (TAPAZOLE) 5 mg tablet Take 1 Tablet by mouth daily. Active predniSONE (DELTASONE) 1 mg tablet Take 1 Tablet by mouth daily. 08/01/20 23 Active pyRIDostigmine (MESTINON) 60 mg tablet Take 60 mg by mouth 3 times daily. Active tamsulosin (FLOMAX) 0.4 mg 24 hr capsule Take 1 tablet by mouth daily. Active albuterol HFA (PROAIR HFA ; PROVENTIL HFA ; VENTOLIN HFA) 90 mcg/actuation inhalerIndicati ons:Chronic obstructive pulmonary disease, unspecified (CMS/HCC V24, CMS/HCC V28) INHALE 2 PUFFS INTO THE LUNGS EVERY 4 HOURS NEEDED FOR COUGH, WHEEZING OR SHORTNESS OF BREATH. 18 each 5 05/04/20 25 Active Anoro Ellipta 62.5-25 mcg/actuation inhalerIndicati ons:Chronic obstructive pulmonary disease, unspecified COPD type (CMS/HCC V24, CMS/HCC V28) Inhale 1 puff by mouth 1 (one) time each day. 3 each 3 05/19/20 25 026 Active metoprolol succinate (TOPROL-XL) 25 mg 24 hr tablet TAKE 1 TABLET BY MOUTH EVERY DAY 90 tablet 1 07/23/20 25 Active sacubitriL-vals braydon (ENTRESTO) 24-26 mg per tablet TAKE 1 TABLET BY MOUTH TWICE A DAY 60 tablet 5 08/10/20 25 Active levothyroxine (SYNTHROID, LEVOTHROID) 100 mcg tablet Take 1 tablet (100 mcg total) by mouth 1 (one) time each day before breakfast. Active levothyroxine (SYNTHROID, LEVOTHROID) 88 mcg tablet Take 88 mcg by mouth daily. 025 Discontinued(Pr escriber Discontinued) sacubitriL-vals braydon (Entresto) 24-26 mg per tablet Take 1 tablet by mouth 2 (two) times a day. 180 tablet 1 11/20/19 25 025 Discontinued Active Problems Problem Noted Date Diagnosed Date Atrial fibrillation ([facility] V24, [facility] V28) 0 10/24/2024 Overview (10/24/2024): Dr. Blake Nicolas Assessment & Plan (08/12/2025 11:37 AM EST): No documented recurrence throughout longevity of ILR. Hyperthyroidism 10/24/2024 Overview (10/24/2024): Dx when on amiodarone. TSH receptor antibody +ve. MMI started 07/2017. Challenging to control, added levothyroxine 09/2018. CHF (congestive heart failure) ([facility] V24, [facility] V28) 11/19/2022 Assessment & Plan (08/12/2025 11:37 AM EST): Patient is euvolemic upon exam today. He will continue on his current dose of metoprolol succinate 25 mg and Entresto. Historically unable to titrate GDMT for CHF in the setting of dizziness and lightheadedness. Encouraged to continue to follow a low-sodium diet and perform daily weights. Patient will reach out to our office with a weight gain of 2 pounds in 1 day or 5 pounds in 5 days accompanied by worsening peripheral edema, shortness of breath or abdominal distention. Orders: ECG 12 lead Transthoracic echocardiogram (TTE) complete with PRN contrast, bubble, strain, and 3D order panel; Future perflutren lipid microsphere (DEFINITY) 1.3 mL in sodium chloride 0.9% 8.7 mL injection Assessment & Plan (08/20/2024 10:47 AM EST): Orders: ECG 12 lead Transthoracic echocardiogram (TTE) complete with PRN contrast, bubble, strain, and 3D order panel; Future Hyperthyroiditis 11/19/2022 Ocular myasthenia gravis ([facility] V24, [facility] V 28) 11/09/2022 Overview (10/24/2024): Dr. Bernardo Cardiomyopathy ([facility] V24, [facility] V28) 2020 Overview (07/11/2024): 40% by cath in 2016 Recovered to 45- 50% September 2020 Cardiac MRI 2016 mild nonischemic cardiomyopathy Cardiac catheterization 2016 nonobstructive coronary artery disease with mid circumflex [...] explanation for his breathlessness. Assessment & Plan (08/12/2025 11:37 AM EST): Recent echocardiogram revealed a stable LVEF of about 50%. He will continue on his current medications. Orders: Transthoracic echocardiogram (TTE) complete with PRN contrast, bubble, strain, and 3D order panel; Future perflutren lipid microsphere (DEFINITY) 1.3 mL in sodium chloride 0.9% 8.7 mL injection Assessment & Plan (08/20/2024 10:47 AM EST): Orders: Transthoracic echocardiogram (TTE) complete with PRN contrast, bubble, strain, and 3D order panel; Future Lipid panel with reflex to direct LDL; Future Lung cancer (CMS/HCC V24, CMS/HCC V28) 7 Overview (10/24/2024): Right hilar mass with RUL pulmlonary nodule resulted in R pneumonectomy, 01/2017 - S/p chemo & pneumonectomy, Tonja Quiroga & Svetlana; recurrence 2021 - s/p XRT. NSVT (nonsustained ventricul ar tachycardia) (CMS/HCC V24, CMS/HCC V28) 10/08/2016 Overview (07/11/2024): Amiodarone discontinued Medtronic ILR Last Assessment & Plan: The patient's ILR has been explanted given that it reached SEBASTIEN. He does not have any palpitations despite PVCs noted on recent Holter monitor. He did not have any tachyarrhythmias on his ILR. He is tolerating his current beta-thaddeus dose. Continue the same. Assessment & Plan (08/12/2025 11:37 AM EST): Patient denies perception of arrhythmia. He did have Medtronic ILR for many years without any recurrence of arrhythmia. Encounters Date Type Department Care Team Description 08/12/2025 11:10 AM EST Office Visit [facility] - [address] [place] [address] Sayra Dukes NP Congestive heart failure, unspecified HF chronicity, unspecified heart failure type (CMS/HCC V24, CMS/HCC V28) (Primary Dx); Other cardiomyopathy (CMS/HCC V24, CMS/HCC V28); NSVT (nonsustained ventricular tachycardia) (CMS/HCC V24, CMS/HCC V28); Atrial fibrillation, unspecified type ([facility] V24, [facility] V28) from Last 3 Months Immunizations Immunization Administration [...] History Date Comments CHF (congestive heart failure) ([facility] V24, [facility] V28) VT (ventricular tachycardia) ([facility] V24, [facility] V28) Primary cardiomyopathy ([facility] V24, [facility] V28 ) Lung cancer ([facility] V24, [facility] V28) 2020 Heart disease 2017 Disease of [...] Reading Time Taken Comments Blood Pressure 122/82 08/12/2025 11:02 AM EST Pulse 75 08/12/2025 11:02 AM EST Temperature 36.3 C (97.3 F) 05/08/2025 1:28 PM EDT Respiratory Rate 18 05/08/2025 1:28 PM EDT Oxygen Saturation 96% 08/12/2025 11:02 AM EST Inhaled Oxygen Concentration - - Weight 61.2 kg (135 lb) 08/12/2025 11:02 AM EST Height 182.9 cm (6') 08/12/2025 11:02 AM EST Body Mass Index 18.31 08/12/2025 11:02 AM EST Plan of Treatment Upcoming Encounters Date Type Department Care Team (Late st Contact Info) Description 11/19/2025 10:[address] [facility] Radiation Oncology [address] [place] [phone] Lissett Fraser NP [address] [place] [address] 03/09/2026 8:30 AM EDT Office Visit Pulmonology - [place] [address] [facility] [address] [place] [phone] Teodora Solorzano NP [address] [place] [address] 08/12/2026 9:00 AM EST Ancillary Procedure [facility] [address] [facility] [address] [place] [address] Health Maintenance Due Date Last Done Comments [...] 11/23/2023 05/09/2021 Depression Screening 10/08/2024 COVID-19 Vaccine ( season) 2025 09/15/2024, 07/31/2023, 09/14/2022, Additional history [...] Procedure Name Priority Date/Time Associated Diagnosis Comments ECG 12-LEAD Routine 08/12/2025 11:37 AM EST Congestive heart failure, unspecified HF chronicity, unspecified heart failure type (CMS/HCC V24, CMS/HCC V28) ANNUAL BMP BLOOD TEST Routine 05/09/2021 LIPID PANEL Routine 05/09/2021 from Last 3 Months or Most Recently Relevant to Health Maintenance Results * ECG 12 lead (08/12/2025 11:37 AM EST) Ventricular Rate ECG 75 BPM GEMUSE Atrial Rate 75 BPM GEMUSE P-R Interval 132 ms GEMUSE QRS Duration 90 ms GEMUSE Q-T Interval 394 ms GEMUSE QTc 439 ms GEMUSE P Wave Grace 60 degrees GEMUSE R Grace 64 degrees GEMUSE T Grace 59 degrees GEMUSE ECG Interpretation Normal sinus rhythm Nonspecific ST abnormality When compared with ECG of 20-AUG-2024 09:32, No significant change was found Confirmed by Linus ROBERTS YUFENG ([id number]) on 08/14/2025 3:54:26 PM GEMUSE 08/12/2025 11:0 8 AM EST 08/14/2025 3:54 PM EST Sayra Dukes NP ECG ORDERABLES Edited Result - Final GEMUSE * Annual BMP Blood Test (05/09/2021) Pathologist [facility] Annual [facility] Blood Test abstracted Historical Provider HEALTH MAINTENANCE Final Result * (ABNORMAL) Lipid panel (05/09/2021) [facility] LDL/HDL Ratio 3 0 - 4 Triglycerides 141 0 - 150 mg/dL Cholesterol 225(A) 0 - 200 mg/dL HDL 88 >=40 mg/dL LDL Cholesterol 109(A) 0 - 100 mg/dL Blood Venous blood specimen / Unknown Result [facility] Historical Provider LAB BLOOD ORDERABLES Fatmata l Result from Last 3 Months or Most Recently Relevant to Health Maintenance [place] [id number] MEDICA[place] - [place] MEDICARE Advance Directives Documents on File Type Date 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
== END 2025-08-31 09:54 | disposition home or self-care (01) ==
LOC: HO.HMGCX 09:53
PROVIDERS: PCP Internal Medicine Medical Oncology; Visit Provider Internal Medicine Medical Oncology
DX: C34.91 Malignant neoplasm of unspecified part of right bronchus or lung (principal); J43.9 Emphysema, unspecified
CPT/HCPCS: 71046

== ENCOUNTER → 2025-08-31 09:59 | Outpatient (BNV) | payer MEDICARE, MEDICAID, SELFPAY | PROVIDERS: PCP Internal Medicine Medical Oncology; Visit Provider Radiology Diagnostic Radiology | DX: C34.91 Malignant neoplasm of unspecified part of right bronchus or lung (principal); J43.9 Emphysema, unspecified; J90 Pleural effusion, not elsewhere classified; Z90.2 Acquired absence of lung [part of] | CPT/HCPCS: 71046 ==

== ENCOUNTER 2025-09-02 14:20 | Outpatient (AMB) | payer MEDICARE, MEDICAID, SELFPAY ==
--- NOTE | 2025-09-02 14:57 | MHC.OFFVIS ---
Intake Visit Reasons: 6 Months F/U Allergies hazelnut Allergy (Verified 07/22/25 11:36) Anaphylaxis HPI Comments Details: 65 yo man with lung cancer s/p resection of the right lung, and chemo in 2017, Graves disease, cardiomyopathy, and antibody positive ocular myasthenia gravis. He is presenting for a follow-up visit for management of a chronic neurological condition. The patient is currently taking prednisone 1 mg daily and pyridostigmine 60 mg three times a day. The patient reports some mild breathing difficulty, which is attributed to the time of year. The patient also notes some difficulty swallowing, but only when taking multiple pills together without water. The patient denies any double vision. [facility] Medical History Personal history of nicotine dependence CAD (coronary artery disease) Non-small cell cancer of right lung (~2016) Heart disease Ocular myasthenia Graves disease Surgical History History of cardiac cath (~2016) History of hand surgery (~2006) History of lung surgery (~2016) Social History Patient Tobacco Use Status: Former Tobacco user e-Cigarette/Vaping Use: Never Used Substance Use Type: Marijuana Current occupational status: employed Current occupation: [employer] - Right hand dominant Review of Systems Narrative - Eyes: Denies double vision. - Respiratory: Reports mild breathing difficulty, attributed to the time of year. - GI: Reports dysphagia when taking multiple pills at once without water. Physical Exam Neuro Other: Mental Status: Alert and oriented to person, place, and time. Normal attention. Normal spontaneous speech, fluency, and comprehension. Cranial Nerves: CN II: Visual simons full to confrontation, visual acuity intact. Mild right-sided ptosis. CN III, IV, : Pupils equal, round, reactive to light and accommodation. Extraocular movements are normal. CN V: Facial sensation is normal. CN VII: Facial movements symmetrical. CN VIII: Hearing intact to bedside conversation is normal. CN IX, X: Palate elevates symmetrically. CN XI: Shoulder shrug and head turn symmetrical. CN XII: Tongue midline without atrophy or fasciculations. Balance gait and coordination and walking were normal Extrapyramidal: Full facial expressions and blinking. No rigidity. Movements are appropriate with no tremor or abnormality. Speech: Normal; no dysarthria or tremor. Assessment & Plan Assessment & Plan (1) Ocular myasthenia: Comment: [place] lung [place] [facility] [place]: R pneumonectomy Anti voltage gated Ca channel at [facility] in 2020: [place] [facility] in [place] in Nov 2019: Bind titer: 0.87. [facility] Abs at [facility] [place] 2019: Binding and blocking ok, but modulating was high Chest XR at [facility] in Sep 2021:s/p R lung resected. Code(s): G70.00 - Myasthenia gravis without (acute) exacerbation Category: Medical Plan Impression: Stable ocular MG Rec: a: Prednisone 1mg daily b: Pyridostigmine 60mg tid I reviewed the patient's current symptoms, including the mild breathing and swallowing difficulties, and noted the denial of double vision. Based on the assessment, I informed the patient that I do not see a reason to increase the prednisone dosage at this time. The patient will continue with the current treatment plan of prednisone 1 mg daily and pyridostigmine 60 mg three times a day. Medications: New pyridostigmine bromide 60 mg PO TID 270 tabs 1RF Refilled prednisone 1 mg PO DAILY 90 tabs 1RF Coding Level of Care Code Est Pt Level 3 (36495) Diagnoses Ocular myasthenia G70.00
--- OUTSIDE RECORDS SUMMARY | 2025-09-02 17:13 | XMS_ITS | Clinical Summary ---
Author Organization [address] [place] [address] [place] [phone] Phone Care Team Providers Care Weave Room Supervisor Name Role Phone Braden Bang MD Primary Care Provider [phone] Allergies Active Allergy Reactions Criticality Noted Date [...] Problem Noted Date Diagnosed Date Atrial fibrillation ([facility] V24, [facility] V28) 0 10/24/2024 Overview (10/24/2024): Dr. Blake Nicolas Assessment & Plan (08/12/2025 11:37 AM EST): No documented recurrence throughout longevity of ILR. Hyperthyroidism 10/24/2024 Overview (10/24/2024): Dx when on amiodarone. TSH receptor antibody +ve. MMI started 07/2017. Challenging to control, added levothyroxine 09/2018. CHF (congestive heart failure) ([facility] V24, [facility] V28) 11/19/2022 Assessment & Plan (08/12/2025 11:37 [...] panel; Future Hyperthyroiditis 11/19/2022 Ocular myasthenia gravis ([facility] V24, [facility] V 28) 11/09/2022 Overview (10/24/2024): Dr. Bernardo Cardiomyopathy ([facility] V24, [facility] V28) 2020 Overview (07/11/2024): 40% by cath [...] Description 08/12/2025 11:10 AM EST Office Visit [facility] - [address] [place] [address] Sayra Dukes NP Congestive heart failure, unspecified HF chronicity, unspecified heart failure type (CMS/HCC V24, CMS/HCC V28) (Primary Dx); Other cardiomyopathy (CMS/HCC V24, CMS/HCC V28); NSVT (nonsustained ventricular tachycardia) (CMS/HCC V24, CMS/HCC V28); Atrial fibrillation, unspecified type ([facility] V24, [facility] V28) from Last 3 Months Immunizations Immunization [...] History Date Comments CHF (congestive heart failure) ([facility] V24, [facility] V28) VT (ventricular tachycardia) ([facility] V24, [facility] V[facility]) Primary cardiomyopathy ([facility] V24, [facility] V28 ) Lung cancer ([facility] V24, [facility] V28) 2020 Heart disease 2017 Disease of [...] Info) Description 11/19/2025 10:00 AM EST Appointment [facility] Radiation Oncology [address] [place] [phone] Lissett Fraser NP [address] [place] [address] 03/09/2026 8:30 AM EDT Office Visit Pulmonology - [place] [address] [facility] [address] [place] [phone] Teodora Solorzano NP [address] [place] [address] 08/12/2026 9:00 AM EST Ancillary Procedure [facility] - [facility] [address] [facility] [address] [place] [address] Health Maintenance Due Date Last Done Comments [...] GEMUSE QTc 439 ms GEMUSE P Wave Raymond 60 degrees GEMUSE R Raymond 64 degrees GEMUSE T Raymond 59 degrees GEMUSE ECG Interpretation Normal sinus rhythm Nonspecific ST abnormality When compared with ECG of 20-AUG-2024 09:32, No significant change was found Confirmed by Linus ROBERTS YUFENG ([id number]) on 08/14/2025 3:54:26 PM GEMUSE 08/12/2025 11:0 8 AM EST 08/14/2025 3:54 PM EST Sayra Dukes NP ECG ORDERABLES Edited Result - Final GEMUSE * Annual BMP Blood Test (05/09/2021) Pathologist [facility] Annual [facility] Blood Test abstracted Historical Provider HEALTH MAINTENANCE Final Result * (ABNORMAL) Lipid panel (05/09/2021) [facility] LDL/HDL Ratio 3 0 - 4 Triglycerides 141 0 - 150 mg/dL Cholesterol 225(A) 0 - 200 mg/dL HDL 88 >=40 mg/dL LDL Cholesterol 109(A) 0 - 100 mg/dL Blood Venous blood specimen / Unknown Result [facility] Historical Provider LAB BLOOD ORDERABLES Fatmata l Result from Last 3 Months or Most Recently Relevant to Health [place] [phone] [place] - [place]ICARE Advance Directives Documents on File Type Date 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
--- OUTSIDE RECORDS SUMMARY | 2025-09-02 17:13 | XMS_ITS | Clinical Summary ---
Author Organization [facility] Address [address] [place] [address] Phone Care Team Providers Care Bag Washer Name Role Phone Braden Bang MD Primary Care Provider Blake Nicolas MD Unavailable [phone] Kodak Gunn MD Unavailable [phone] Gabriela Bernardo MD Unavailable Allergies Active Allergy Reactions Criticality Noted Date Comments Hazelnut Anaphylaxis High 12/20/2023 Medications ANORO ELLIPTA 62.5-25 mcg/actuation diskus inhaler Inhale 1 puff into the lungs daily. 12/05/2023 Active tamsulosin (FLOMAX) 0.4 mg Cap Take 0.4 mg by mouth daily. 11/09/2023 Active SACUBITRIL-VALSA RTAN 24-26 mg per tablet Take 1 tablet [...] 4 (four) hours as needed. 12/05/2023 Active levothyroxine (SYNTHROID, LEVOTHROID) 100 MCG tabletIndication s:Hyperthyroidis m Take 1 tablet (100 mcg total) by mouth every morning. 90 tablet 1 07/03/2025 Active methIMAzole (TAPAZOLE) 5 MG tabletIndication s:Hyperthyroidis m TAKE 1 TABLET (5 MG TOTAL) BY MOUTH DAILY. 90 tablet 1 07/23/2025 Active Active Problems Problem Noted Date Diagnosed [...] Encounters Date Type Department Care Team Description 07/23/2025 Refill [facility] [address] [place] [address] Melvi Do PA-C Medication Refill 07/03/2025 Orders Only [facility] [address] [place] [address] Meghann Cavazos MD Hyperthyroidism (Primary Dx) 07/03/2025 Orders Only [facility] [address] [place] [address] Meghann Cavazos MD Hyperthyroidism (Primary Dx) 07/03/2025 Telephone [facility] [address] [place] [address] Tori Cline MA Labs (TSH) from Last 3 Months Family History Medical [...] 8:20 AM EDT Office Visit [facility] [address] [place] [address] [place] [address] Meghann Cavazos MD [address] [place] [address] [email or web address] Health Maintenance Due Date [...] Procedure Name Priority Date/Time Associated Diagnosis Comments THYROID STIMULATING HORMONE (TSH) Routine 12/18/2024 12:51 PM EDT Hyperthyroidism from Last 3 Months or Most Recently Relevant to Health Maintenance Results * TSH (12/18/2024 12:51 PM EDT) Blood us Meghann Cavazos MD LAB BLOOD BKR ORDERABL ES Final Result [address] [address] from Last 3 Months or Most Recently Relevant to Health Maintenance Insurance [facility] Care Teams Bag Washer Relationship Specialty Start Date End Date Braden Bang MD [address] [place] [address] [place] [address] PCP - General Internal Medicine 05/21/23 Blake Nicolas MD [address] [place] [address] [address] [place] [address] Cardiology 12/20/23 Kodak Gunn MD [address] [place] [address] [place] [address] Medical Oncology 12/20/23 Gabriela Bernardo MD [address] [place] [address] [place] [address] Neurology 12/20/23 Additional Source Comments The information contained in this document represents components of the legal health record. It is not the complete legal health record.[facility]
== END 2025-09-02 15:05 | disposition home or self-care (01) ==
LOC: HO.HSM 14:21
PROVIDERS: PCP Internal Medicine; Referring Provider Internal Medicine; Visit Provider Psychiatry & Neurology Neurology
DX: G70.00 Myasthenia gravis without (acute) exacerbation (principal)
CPT/HCPCS: 99213

== ENCOUNTER → 2025-09-02 14:20 | Outpatient (BNVA) | payer MEDICARE, MEDICAID, SELFPAY | PROVIDERS: PCP Internal Medicine; Referring Provider Internal Medicine; Visit Provider Psychiatry & Neurology Neurology | DX: G70.00 Myasthenia gravis without (acute) exacerbation (principal); Z85.118 Personal history of other malignant neoplasm of bronchus and lung; Z87.891 Personal history of nicotine dependence | CPT/HCPCS: 99212 ==

== ENCOUNTER 2025-09-10 08:58 | Outpatient (AMB) | payer MEDICARE, MEDICAID, SELFPAY ==
--- NOTE | 2025-09-10 09:05 | A.OFFVIS_ITS ---
Vital Signs 09/10/25 09:06 Height 6 ft Weight 299 lb 13.259 oz BMI 40.7 BP 97/62 Blood Pressure Location Lt brachial Position Sitting Pulse 77 Intake Visit Reasons: Screening Intake Note: New patient in office today for colonoscopy screening. CC: Patient states that he was sent to us because his most recent PET scan showed something suspicious. He states that some food now bother his stomach and give him loose stools. 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 Employment Programs Analyst Required: No Accompanied by: Self / Same As Patient Allergies No Known Drug Allergies Allergy (Unknown, Verified 09/10/25 09:17) none hazelnut Allergy (Verified 09/10/25 09:17) Anaphylaxis HPI HPI Screening: Details: 65-year-old male here for preprocedural meeting to discuss a screening colonoscopy. He is referred by Camilo Singletary. PMX Ex-smoker History of non-small cell lung cancer right long Coronary artery disease Graves disease Occular myasthenia non ischemic cardiomyopathy COPD - Dr. sangeeta hawk * SURGICAL HISTORY Cardiac catheterization Hand surgery - Table saw accident Right pneumonectomy tonsillectomy * ALLERGIES: NKDA * Glanse LABS: Laboratory Tests 05/09/25 07:05 WBC 8.2 Hgb 16.2 Hct 49.1 Plt Count 264 Estimated GFR > 60 Total Bilirubin 0.8 Direct Bilirubin 0.3 AST 20 ALT 14 Alkaline Phosphatase 55 TSH 4.14 H TODAY'S VISIT First colonoscopy Yes Bowel or upper GI problems: No except myesthenia swallowing intermittent problems. BUT something lit up on a PET scan at [facility] in colon Problems with anesthesia or sedation: No Cardiac or respiratory problems:: COPD, history of small-cell lung cancer [facility] post pneumonectomy- get clearance from Pulm at [place], his cardiac condition is well controlled ID: No FHX colon cancer or polyps: No Subjective Patient presents for initial screening colonoscopy. Age 65 and has never had a colonoscopy. Reports a PET scan within the past year with uptake ?down around there,? and was advised to proceed with colonoscopy. Denies constipation, diarrhea, rectal bleeding, nausea, or ongoing vomiting. Reports developing mild dysphagia, noting pills and occasionally spaghetti feel ?hung up,? which the patient believes may relate to ocular myasthenia. No prior problems with anesthesia or sedation. Patient also reports difficulty maintaining weight over several years, with gradual decline since lung cancer therapy. Relevant Past Medical, Social, and Family History - Former smoker. History of non-small cell lung cancer with right pneumonectomy and a treated lesion in the left lung. COPD/emphysema. Coronary artery disease. Non-ischemic cardiomyopathy. Graves? disease. Ocular myasthenia. - Procedures: Cardiac catheterization; hand surgery to two fingers after table saw injury; tonsillectomy and adenoidectomy; right pneumonectomy. - No known medication allergies. - No history of hepatitis, HIV, or tuberculosis. No known sleep apnea. - Pulp Machine Operator: Dr. Sangeeta Roy ([place]). Resident Programs Assistant: Dr. Nicolas. - Family history negative for colon cancer or colon polyps. Objective - Lungs clear to auscultation today. - No lower extremity swelling observed. Assessment & Plan Colorectal cancer screening; abnormal PET uptake near colon (outside study): Patient is overdue for screening colonoscopy and also reports a prior PET with uptake warranting evaluation. Proceed with hospital-based colonoscopy under sedation. - Plan - Schedule colonoscopy; anticipate November timing with date/time to be provided within ~8 weeks. - Bowel preparation prescription to pharmacy now; patient education provided regarding clear liquid diet the day prior (avoid red liquids; coffee/tea without milk or creamer permitted; emphasize hydration) and need for an adult escort post-procedure due to sedation. - Obtain outside PET scan records from [place]; consent obtained/to be obtained for records release. - Coordinate pulmonology clearance with Dr. Roy; confirm cardiac status as clinically stable; proceed per clearances. Unintentional weight loss/difficulty maintaining weight: Discussed likely multifactorial etiology including increased work of breathing with COPD/emphysema and post-pneumonectomy mechanics, reduced tolerance for large meals, and age-related sarcopenia. No red flag GI symptoms reported. 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 - Monitor trajectory; further evaluation if new GI symptoms or accelerated weight loss occur. Mild dysphagia, likely related to ocular myasthenia: Intermittent pill and solid food dysphagia reported; no alarming features elicited. - Plan - Advise caution with pill burden at once; monitor symptoms. Consider further evaluation if progression occurs. COPD/emphysema?stable: Maintenance inhaler daily; rescue inhaler use variable based on activity and exposures; breathing reported as fairly well controlled. - Plan - Continue current regimen. Avoid triggers as feasible. Use rescue inhaler as needed. [facility] Medical History (Updated 09/10/25 @ 10:41 by RADHA Philippe) Open fracture of distal phalanx of left middle finger Personal history of nicotine dependence CAD (coronary artery disease) Non-small cell cancer of right lung (~2016) Heart disease Ocular myasthenia Graves disease Surgical History (Updated 09/10/25 @ 10:40 by RADHA Philippe) H/O pneumonectomy History of cardiac cath (~2016) History of hand surgery (~2006) Social History Alcohol intake: current Alcohol intake frequency: holidays/special occasions only Alcohol type: beer Comment: like 1 beer during football season Patient Tobacco Use Status: Former Tobacco user e-Cigarette/Vaping Use: Never Used Substance Use Type: Marijuana Current occupational status: employed Current occupation: [employer] - Right hand dominant Review of Systems Const Denies fatigue, Denies fever(s), Denies night sweats, Denies poor appetite and Reports weight loss ENT Reports Normal hearing present, Denies dental pain, Denies dysphagia, Denies hearing loss, Denies mouth pain, Denies odynophagia, Denies throat swelling, De nies tongue swelling and Reports other (Dentition adequate) Card Reports no additional complaints and Reports dyspnea on exertion Resp Reports dyspnea on exertion GI Details: Denies abdominal pain, Denies melena, Denies bloating, Denies hematochezia, Denies constipation, Denies GI cramping, Denies dysphagia, Denies excessive flatus, Denies early satiety, Denies heartburn, Denies diarrhea, Denies nausea, Denies odynophagia, Denies vomiting and Denies hematemesis Skin/Breast Denies pruritus, Denies lesions, Denies rash and Denies jaundice Neuro Reports Normal hearing present, Denies Abnormal speech present and Reports Other visual disturbances Endo Denies fatigue Aller/Immun Denies throat swelling and Denies tongue swelling Physical Exam Vital Signs: Last Vital Signs Pulse 77 09/10/25 09:06 BP 97/62 09/10/25 09:06 BMI result Body Mass Index 40.7 Const General: cooperative, no acute distress, well developed and well groomed Nutritional Appearance: well nourished and thin Orientation/consciousness: oriented to person, oriented to place and oriented to time Limitations: No language barrier HEENT Head: Yes normocephalic and Yes atraumatic Eyes General: appearance normal, both eyes and all related structures Pupils: Equal, round and reactive pupils present Neck Neck: Yes normal visual inspection and Yes no lymphadenopathy Thyroid: Thyroid normal Resp Effort & Inspection: normal respiratory effort and able to speak in complete sentences Auscultation: clear to auscultation bilaterally and diminished lung sounds on the left in the lower lung simons Cardio Rate: regular rate Rhythm: regular rhythm Heart sounds: Normal, physiologic split S2 sound present Peripheral pulses: radial pulses present and posterior tibial pulses present GI Inspection: No distended and No Abdominal panniculus present Palpation (GI): Soft to palpation, nontender, no guarding, not rigid and No hepatosplenomegaly present Percussion: Yes normal to percussion Auscultation: normal bowel sounds Rectal Exam - Male: Yes deferred Skin General skin exam: no rashes or lesions noted, turgor normal, skin not dry, no jaundice, No spider nevi and no striae Rashes: no rashes Nails: normal Neuro General: oriented to person, oriented to place and oriented to time Cranial nerves: Yes Equal, round and reactive pupils present and Yes Normal hearing present Speech: No Abnormal speech present Extrem General: Yes normal to inspection, No clubbing, No cyanosis and No edema Psych Appearance: grossly normal and well kempt Mental Status: mental status grossly normal Speech and movement: Normal speech and movement present Affect: normal affect Attitude: cooperative Thought process: Normal thought process present Thought content: Normal thought content present Insight: Good insight present (Psych) Judgement: Good judgement present (Psych) Assessment & Plan Assessment & Plan (1) Pre-op examination: Code(s): Z01.818 - Encounter for other preprocedural examination Category: Medical (2) COPD (chronic obstructive pulmonary disease): Code(s): J44.9 - Chronic obstructive pulmonary disease, unspecified Category: Medical (3) Former smoker: Code(s): Z87.891 - Personal history of nicotine dependence Category: Medical (4) H/O pneumonectomy: Comment: (right pneumonectomy [adenocarcinoma], Dr. Caruso [facility] - 01/31/2017) Code(s): Z98.890 - Other specified postprocedural states; Z90.2 - Acquired absence of lung [part of] Category: Medical (5) Abnormal PET scan of colon: Code(s): R94.8 - Abnormal results of function studies of other organs and systems Category: Medical Plan First colonoscopy Yes Bowel or upper GI problems: No except myesthenia swallowing intermittent problems. BUT something lit up on a PET scan at [facility] in colon Problems with anesthesia or sedation: No Cardiac or respiratory problems:: COPD, history of small-cell lung cancer status post pneumonectomy- get clearance from Pulm at [place], his cardiac condition is well controlled ID: No FHX colon cancer or polyps: No Subjective Patient presents for initial screening colonoscopy. Age 65 and has never had a colonoscopy. Reports a PET scan within the past year with uptake ?down around there,? and was advised to proceed with colonoscopy. Denies constipation, diarrhea, rectal bleeding, nausea, or ongoing vomiting. Reports developing mild dysphagia, noting pills and occasionally spaghetti feel ?hung up,? which the patient believes may relate to ocular myasthenia. No prior problems with anesthesia or sedation. Patient also reports difficulty maintaining weight over several years, with gradual decline since lung cancer therapy. Relevant Past Medical, Social, and Family History - Former smoker. History of non-small cell lung cancer with right pneumonectomy and a treated lesion in the left lung. COPD/emphysema. Coronary artery disease. Non-ischemic cardiomyopathy. Graves? disease. Ocular myasthenia. - Procedures: Cardiac catheterization; hand surgery to two fingers after table saw injury; tonsillectomy and adenoidectomy; right pneumonectomy. - No known medication allergies. - No history of hepatitis, HIV, or tuberculosis. No known sleep apnea. - Pulp Machine Operator: Dr. Sangeeta Roy ([place]). Resident Programs Assistant: Dr. Nicolas. - Family history negative for colon cancer or colon polyps. Objective - Lungs clear to auscultation today. - No lower extremity swelling observed. Assessment & Plan Colorectal cancer screening; abnormal PET uptake near colon (outside study): Patient is overdue for screening colonoscopy and also reports a prior PET with uptake warranting evaluation. Proceed with hospital-based colonoscopy under sedation. - Plan - Schedule colonoscopy; anticipate November timing with date/time to be provided within ~8 weeks. - Bowel preparation prescription to pharmacy now; patient education provided regarding clear liquid diet the day prior (avoid red liquids; coffee/tea without milk or creamer permitted; emphasize hydration) and need for an adult escort post-procedure due to sedation. - Obtain outside PET scan records from [place]; consent obtained/to be obtained for records release. - Coordinate pulmonology clearance with Dr. Roy; confirm cardiac status as clinically stable; proceed per clearances. Unintentional weight loss/difficulty maintaining weight: Discussed likely multifactorial etiology including increased work of breathing with COPD/emphysema and post-pneumonectomy mechanics, reduced tolerance for large meals, and age-related sarcopenia. No red flag GI symptoms reported. 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 - Monitor trajectory; further evaluation if new GI symptoms or accelerated weight loss occur. Mild dysphagia, likely related to ocular myasthenia: Intermittent pill and solid food dysphagia reported; no alarming features elicited. - Plan - Advise caution with pill burden at once; monitor symptoms. Consider further evaluation if progression occurs. COPD/emphysema?stable: Maintenance inhaler daily; rescue inhaler use variable based on activity and exposures; breathing reported as fairly well controlled. - Plan - Continue current regimen. Avoid triggers as feasible. Use rescue inhaler as needed. Orders: Referrals GI Procedure Notification Z01.818 - Encounter for other preprocedural examination Medications: New sodium,potassium,mag sulfates 17.5-3.13-1.6 gram (Suprep Bowel Prep Kit) 480 mL orally; FOR COLONOSCOPY PREP 354 mL 0RF Coding Level of Care Code New Pt Level 3 (60808) Diagnoses Pre-op examination Z01.818 COPD (chronic obstructive pulmonary disease) J44.9 Former smoker Z87.891 H/O pneumonectomy Z98.890; Z90.2 Abnormal PET scan of colon R94.8
[2025-09-10 09:06] VITALS: BP 97/62; PULSE 77; BMI 40.7
--- OUTSIDE RECORDS SUMMARY | 2025-09-10 09:43 | XMS_ITS | Clinical Summary ---
Author Organization [facility] Address [address] [place] [address] Phone Care Team Providers Care Day Habilitation Specialist Name Role Phone Braden Bang MD Primary Care Provider Blake Nicolas MD Unavailable Kodak Gunn MD Unavailable [phone] Gabriela Bernardo MD Unavailable [phone] Allergies Active Allergy Reactions Criticality Noted Date [...] Refill [facility] [address] [place] [address] Melvi Do PA-C Medication Refill 07/03/2025 Orders Only [facility] [address] [place] [address] Meghann Cavazos MD Hyperthyroidism (Primary Dx) 07/03/2025 Orders Only [facility] [address] [place] [address] Meghann Cavazos MD Hyperthyroidism (Primary Dx) 07/03/2025 Telephone [facility] [address] [place] [address] Tori Cline MA Labs (TSH) from Last [...] 8:20 AM EDT Office Visit [facility] [address] [place] [address] [place] [address] Meghann Cavazos MD [address] [place] [address] [email or web address] Health Maintenance Due Date Last Done Comments [...] LAB BLOOD BKR ORDERABL ES Final Result [address] [address] from Last 3 Months or Most Recently Relevant to Health Maintenance Insurance [facility] Care Teams Day Habilitation Specialist Relationship Specialty Start Date End Date Braden Bang MD [address] [place] [address] [place] [address] PCP - General Internal Medicine 05/21/23 Blake Nicolas MD [address] [place] [address] [address] [place] [address] Cardiology 12/20/23 Kodak Gunn MD [address] [place] [address] [place] [address] Medical Oncology 12/20/23 Gabriela Bernardo MD [address] [place] [address] [place] [address] Neurology 12/20/23 Additional Source Comments The information contained in this document represents components of the legal health record. It is not the complete legal health record.[facility]
--- OUTSIDE RECORDS SUMMARY | 2025-09-10 09:45 | XMS_ITS | Clinical Summary ---
Author Organization [address] [place] [address] [place] [phone] Phone Care Team Providers Care Child Welfare Director Name Role Phone Braden Bang MD Primary Care Provider [phone] Allergies Active Allergy Reactions Criticality Noted Date [...] 5 5 Active Anoro Ellipta 62.5-25 mcg/actuation inhalerIndicati ons:Chronic obstructive pulmonary disease, unspecified COPD type (CMS/HCC V24, CMS/HCC V28) Inhale 1 puff by mouth 1 (one) time each day. 3 each 3 5 05/19/20 26 Active metoprolol succinate (TOPROL-XL) 25 mg 24 hr tablet TAKE 1 TABLET BY MOUTH EVERY DAY 90 tablet 1 5 Active sacubitriL-vals braydon (ENTRESTO) 24-26 mg per tablet TAKE 1 TABLET BY MOUTH TWICE A DAY 60 tablet 5 5 Active levothyroxine (SYNTHROID, LEVOTHROID) 100 mcg tablet Take 1 tablet (100 mcg total) by mouth 1 (one) time each day before breakfast. Active levothyroxine (SYNTHROID, LEVOTHROID) 88 mcg tablet Take 88 mcg by mouth daily. 08/12/20 25 Discontinu ed(Prescri amee Discontinu ed) Active Problems Problem Noted Date Diagnosed Date Atrial fibrillation ([facility] V24, [facility] V28) 0 10/24/2024 Overview (10/24/2024): Dr. Blake Nicolas Assessment & Plan (08/12/2025 11:37 AM EST): No documented recurrence throughout longevity of ILR. Hyperthyroidism 10/24/2024 Overview (10/24/2024): Dx when on amiodarone. TSH receptor antibody +ve. MMI started 07/2017. Challenging to control, added levothyroxine 09/2018. CHF (congestive heart failure) ([facility] V24, [facility] V28) 11/19/2022 Assessment & Plan (08/12/2025 11:37 [...] panel; Future Hyperthyroiditis 11/19/2022 Ocular myasthenia gravis ([facility] V24, [facility] V 28) 11/09/2022 Overview (10/24/2024): Dr. Bernardo Cardiomyopathy ([facility] V24, [facility] V28) 2020 Overview (07/11/2024): 40% by cath [...] Description 08/12/2025 11:10 AM EST Office Visit [facility] - [address] [place] [address] Sayra Dukes NP Congestive heart failure, unspecified HF chronicity, unspecified heart failure type (CMS/HCC V24, CMS/HCC V28) (Primary Dx); Other cardiomyopathy (CMS/HCC V24, CMS/HCC V28); NSVT (nonsustained ventricular tachycardia) (CMS/HCC V24, CMS/HCC V28); Atrial fibrillation, unspecified type (CMS/HCC V24, CMS/HCC V28) from Last 3 Months Immunizations Immunization [...] History Date Comments CHF (congestive heart failure) ([facility] V24, [facility] V28) VT (ventricular tachycardia) ([facility] V24, [facility] V28) Primary cardiomyopathy ([facility] V24, [facility] V28 ) Lung cancer ([facility] V24, [facility] V28) 2020 Heart disease 2017 [...] Info) Description 11/19/2025 10:00 AM EST Appointment [facility] [address] [place] [phone] Lissett Fraser NP [address] [place] [address] 03/09/2026 8:30 AM EDT Office Visit Pulmonology - [place] [address] [facility] [address] [place] [phone] Teodora Solorzano NP [address] [place] [phone] 08/12/2026 9:00 AM EST Ancillary Procedure [facility] [address] [facility] [address] [place] [phone] Health Maintenance Due Date Last Done Comments [...] unspecified HF chronicity, unspecified heart failure type ([facility] V24, [facility] V28) ANNUAL BMP BLOOD TEST Routine 05/09/2021 LIPID PANEL Routine 05/09/2021 from Last 3 Months or Most Recently Relevant to Health Maintenance Results * ECG 12 lead (08/12/2025 11:37 AM EST) Ventricular Rate ECG 75 BPM GEMUSE Atrial Rate 75 BPM GEMUSE P-R Interval 132 ms GEMUSE QRS Duration 90 ms GEMUSE Q-T Interval 394 ms GEMUSE QTc 439 ms GEMUSE P Wave [place] 60 degrees GEMUSE R [place] 64 degrees GEMUSE T [place] 59 degrees GEMUSE ECG Interpretation Normal sinus rhythm Nonspecific ST abnormality When compared with ECG of 20-AUG-2024 09:32, No significant change was found Confirmed by Linus ROBERTS YUFENG ([id number]) on 08/14/2025 3:54:26 PM GEMUSE 08/12/2025 11:0 8 AM EST 08/14/2025 3:54 PM EST Sayra Dukes NP ECG ORDERABLES Edited Result - Final GEMUSE * Annual BMP Blood Test (05/09/2021) Pathologist [facility] Annual BMP Blood Test abstracted Historical Provider HEALTH MAINTENANCE Final Result * (ABNORMAL) Lipid panel (05/09/2021) Pathologist [facility] LDL/HDL Ratio 3 0 - 4 Triglycerides [...] Documents on File Type Date Recorded Patient Procurement Agent Expl anation Health Care Decision (hx) 01/17/2017 [...] DIRECTIVE Health Care Decision (hx) 09/20/2016 AD GOLDBREG DIRECTIVE Health Care Decision (hx) 09/20/2016 AD GOLDBERG DIRECTIVE Care Teams Child Welfare Director Relationship Specialty Start Date End Date Braden Bang MD [address] [place] [address] Dr Daniel OR PCP - General Internal Medicine 09/03/20
== END 2025-09-10 10:14 | disposition home or self-care (01) ==
LOC: HO.HGI 08:59
PROVIDERS: PCP Internal Medicine; Visit Provider Nurse Practitioner
DX: Z01.818 Encounter for other preprocedural examination (principal); Z12.11 Encounter for screening for malignant neoplasm of colon; R94.8 Abnormal results of function studies of other organs and systems; J44.9 Chronic obstructive pulmonary disease, unspecified; Z90.2 Acquired absence of lung [part of]
CPT/HCPCS: 99203

== ENCOUNTER → 2025-09-10 08:58 | Outpatient (BNVA) | payer MEDICARE, MEDICAID, SELFPAY | PROVIDERS: PCP Internal Medicine; Visit Provider Nurse Practitioner | DX: Z01.818 Encounter for other preprocedural examination (principal); J44.9 Chronic obstructive pulmonary disease, unspecified; R94.8 Abnormal results of function studies of other organs and systems; Z87.891 Personal history of nicotine dependence | CPT/HCPCS: 99202 ==